=== PATIENT | female | born 1945 | race Caucasian/White ===

== ENCOUNTER → 2017-10-07 11:35 | Oncology outpatient (ONC) | payer MEDICARE, OTHER, SELFPAY ==
--- NOTE | 2017-10-07 12:32 | ONC.APRN.PN ---
Assessment and Plan (1) Polycythemia vera Current visit: No Status: Acute 10/07/17 12:37 Margo is a very pleasant 71-year-old female who we have been following for polycythemia vera. Reassuringly her blood counts remained stable on Hydrea 2000 mg each week. Specifically she takes 500 mg Tuesday. Platelets are 491. Hemoglobin 11.1 hematocrit 38.5 MCV 76. She is to continue Hydrea as per above. It is noted she is now being followed by Rheumatology for a diagnosis of fibromyalgia also osteoarthritis. Return to clinic in 4 months for provider visit CBC CMP iron profile. Continue every 2 month CBC. - Time Spent with Patient 35 minutes PN -Subjective Interval history: Margo is a very pleasant 71-year-old female who we follow in this clinic for polycythemia vera. She was previously thought to be KATHLEEN 2 positive however confirmatory testing was negative. She has been on Hydrea Tuesday 500 mg each day for total of 2000 mg each week for the last few years. Blood counts have been stable. No thrombotic events. She presents today for routine 4 month clinical evaluation. During the interval she was evaluated by Rheumatology she was diagnosed with osteoarthritis also fibromyalgia. No change in medications. Also, at 1 point time she was diagnosed with multiple sclerosis however she is now being told that was likely incorrect. She does still see Dr. sergio Holbrook, neurology. No new complaints on exam today. She does have multiple chronic complaints including joint pain, fatigue. No recent illnesses she did have a severe pneumonia 1 year ago. Otherwise stable. No change in weight, no change in appetite specifically no early satiety. No change in bladder or bowel habits. No change in activity tolerance she does continue with grade 1 fatigue. However she remains active she continues to work. She also baby-sits her grandchildren a few days every week. She is planning a trip to [facility] later this summer. No cough, fever, chills. No chest pain, shortness of breath. No headache. No new musculoskeletal pain. Past medical history: Polycythemia vera Chronic fatigue Followed by several neurologists including Alina wells Mildly elevated creatinine, chronic Chronic headaches Results - Imaging Additional studies: Procedures Esophagogastroduodenoscopy [EGD] with closed biopsy (11/15/14) Exploration of tendon sheath of hand (05/04/12) Injection of anticoagulant (07/30/11) Injection or infusion of other therapeutic or prophylactic substance (01/16/13) Other endoscopy of small intestine (12/22/11) Other nonoperative respiratory measurements (07/30/11) Home Medications and Allergies Home Medications Medication Instructions Recorded Confirmed Type ASPIRIN (#ASPIR 81) 81 mg PO Q DAY #0 11/13/12 History CRANBERRY EXTRACT (Cranberry) 300 mg PO Q DAY #0 11/13/12 History Vitamin E Succinate (#VITAMIN E) 200 iu PO Q DAY #0 11/13/12 History cholecalciferol (vitamin D3) 2,000 iu PO QDAY #0 11/13/12 History [Vitamin D3] escitalopram oxalate [Lexapro] 20 mg PO Q DAY #0 11/13/12 History fexofenadine 180 mg PO Q DAY #0 11/13/12 History fluticasone-salmeterol [Advair 1 puff INH BID #0 11/13/12 History Diskus] montelukast [Singulair] 10 mg PO QDAY #0 11/13/12 History naratriptan [Amerge] 2.5 mg PO #0 11/13/12 History tolterodine [Detrol LA] 4 mg PO QDAY #0 11/13/12 History multivitamin [Multiple Vitamins] 1 tab PO #0 12/12/15 History allopurinol 300 mg PO QDAY #90 tab 01/28/16 Rx nystatin-triamcinolone 1 rakesh TOPICAL PRN PRN #0 02/19/16 History linaclotide [Linzess] #0 09/17/16 History hydroxyurea [Hydrea] 500 mg PO 3 TIMES WEEKLY #36 cap 11/26/16 Rx acetaminophen 325 mg PO PRN #0 01/21/17 History Allergies Allergy/AdvReac Type Severity Reaction Status Date / Time indomethacin [INDOMETHACIN] Allergy Severe DIFFICULTY Unverified 08/17/17 12:58 BREATHING orphenadrine [ORPHENADRINE] Allergy Severe DIFFICULTY Unverified 08/17/17 12:58 BREATHING brompheniramine Allergy Unknown Unverified 08/17/17 12:58 [BROMPHENIRAMINE] chlorpheniramine Allergy Unknown Unverified 08/17/17 12:58 [CHLORPHENIRAMINE] dextromethorphan Allergy Unknown TIGHT CHEST Unverified 08/17/17 12:58 [DEXTROMETHORPHAN] lidocaine [LIDOCAINE] Allergy Unknown W/EPI-SHAKE Unverified 08/17/17 12:58 S Penicillins [PENICILLINS] Allergy Unknown Unverified 08/17/17 12:58 phenylephrine [PHENYLEPHRINE] Allergy Unknown Unverified 08/17/17 12:58 phenylpropanolamine Allergy Unknown Unverified 08/17/17 12:58 [PHENYLPROPANOLAMINE] pseudoephedrine Allergy Unknown TIGHT CHEST Unverified 08/17/17 12:58 [PSEUDOEPHEDRINE] Sulfa (Sulfonamide Allergy Unknown Unverified 08/17/17 12:58 Antibiotics) [SULFA (SULFONAMIDE ANTIBIOTICS)] erythromycin base AdvReac Unknown UPSET Unverified 08/17/17 12:58 [From ERYTHROCIN] STOMACH SEPTRA DS Allergy Unknown Uncoded 08/17/17 12:58 Exam Narrative: non toxic appearing - Constitutional positive no acute distress, positive average body habitus - Routine HEENT Exam Head: Present: normocephalic Eye: Present: EOMI, PERRL, normal accommodation, conjunctivae pink. Absent: conjunctival icterus ENT: Present: mucous membranes moist - Routine Neck Exam Present: supple. Absent: lymphadenopathy - Routine Chest/Breast/Axilla Exam Axillae: Absent: lymphadenopathy, mass, tenderness - Routine Respiratory Exam Present: Clear to auscultation bilaterally - Routine Cardiovascular Exam Present: RRR - Routine Abdominal Exam Present: soft, normoactive bowel sounds. Absent: tenderness, distended, rebound, guarding, organomegaly, mass - Routine Extremities Exam Absent: clubbing, edema, calf tenderness - Routine Skin Exam Present: intact, normal turgor. Absent: cyanosis, petechiae - Routine Neurological Exam Present: alert, oriented X3 - Routine Psychiatric Exam Present: normal affect
[2017-10-07 13:29] VITALS: BP 124/64; PULSE 77; RESP 16; TEMP 37; O2SAT 100
--- NOTE | 2021-04-13 11:28 | ONC.MSW ---
Bety Co-Pay Assistance/Delivery T/C Activity: Pt called to share that [facility] pharmacy told her that her medication is ready to deliver, but that there is no funding left in the Se, which is incorrect. EMERGENCY DEPARTMENT MANAGER called [employer], they said that [facility] needs to call them and give them the processing information, that this se goes month to month (MAR and APR), and that once [facility] calls, they will move the money into the account for this month. Called [facility] back, explained all of the above. EMERGENCY DEPARTMENT MANAGER stayed on hold until this was completed by [facility]. Called pt to confirm that the funds are available, and that her order is now being processed.
== END ==
PROVIDERS: Family Provider Family Medicine; PCP Family Medicine; Visit Provider Nurse Practitioner Gerontology
DX: D45 Polycythemia vera (principal)
CPT/HCPCS: 99214

== ENCOUNTER → 2017-12-06 10:00 | Outpatient (CLI) | payer MEDICARE, OTHER, SELFPAY ==
[2017-12-06 10:37] LABS: Hematocrit 37.5 % (36-46); Hemoglobin 11.2 g/dL (12.0-16.0); Mean Corpuscular HGB Conc 29.9 % (30-36); Mean Corpuscular Volume 73.6 fL (80-100); Platelet Count 496 X10^3/uL (150-400); Red Cell Distribution Width 22.6 % (11.6-14.8); White Blood Cell Count 12.1 X10^3/uL (4.5-11.0)
[2017-12-06 10:42] LABS: Add Manual Diff / Slide Review YES
[2017-12-06 11:23] LABS: Neutrophils Absolute Manual 10043 /uL (3000-5900); Total Cells Counted 100
[2017-12-06 11:24] LABS: Anisocytosis 2+
[2017-12-06 11:26] LABS: Ovalocytes 2+; Tear Drop Cells 1+
== END ==
PROVIDERS: Family Provider Family Medicine; PCP Family Medicine; Visit Provider Nurse Practitioner Gerontology
DX: D45 Polycythemia vera (principal)
CPT/HCPCS: 36415; 85025

== ENCOUNTER → 2017-12-14 15:03 | Outpatient (CLI) | payer MEDICARE, OTHER, SELFPAY ==
--- NOTE | 2017-12-14 | DI.MRI.S_ITS ---
PROCEDURE: MR KNEE LT WO CON INDICATIONS: CHRONIC PAIN OF LEFT KNEE TECHNIQUE: Noncontrast sagittal PD fast spin echo and T2 fast spin echo with fat saturation, sagittal 3-D FLASH with fat saturation; coronal T1 spin echo and PD fast spin echo with fat saturation, and axial PD fast spin echo with fat saturation through the knee. COMPARISON: None. FINDINGS: Image quality: Excellent. Menisci: There is complex tear involving body and posterior horn of medial meniscus extending to both superior and inferior articulating surfaces. No evidence of focal lateral meniscal tear. The meniscal root ligaments appear intact. Cruciate ligaments: The anterior and posterior cruciate ligaments appear intact. Medial structures: There is low grade proximal MCL sprain. No evidence of MCL rupture. The posterior oblique ligament, semimembranosus tendon insertions, oblique popliteal ligament, and meniscocapsular junction appear intact. Visualized portions of the pes anserinus tendons appear normal. No abnormal bursal fluid. Lateral structures: The lateral collateral ligament, long and short heads of the biceps femoris tendon appear intact. The popliteus tendon appears normal; the popliteofibular ligament appears intact. The posterosuperior and anteroinferior popliteomeniscal fascicles appear intact. The arcuate and fabellofibular ligaments appear intact, on either side of the lateral inferior geniculate artery. Iliotibial band appears normal. Anterior structures: The quadriceps and patellar tendons appear intact. Patellar alignment is normal. No femoral trochlear dysplasia or ventral trochlear prominence. No edema in the infrapatellar fat pad. Bones and cartilage: No bone marrow contusions or fractures. Low-grade chondromalacia involving medial facet of patella cartilage is seen. Joint space: There is moderate amount of knee joint fluid. No Hutchinson's cyst. Normal appearing synovial plicae are incidentally noted. IMPRESSION: 1. Complex tear involving body and posterior horn of medial meniscus extending to superior and inferior articulating surfaces. No focal lateral meniscal tear. 2. Cruciate ligaments are intact. 3. No fracture or dislocation. Moderate amount of joint effusion. No gross loose body. 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 Dictated by: Mendoza Olivier M.D. on 12/14/2017 at 16:27 Approved by: Mendoza Olivier M.D. on 12/14/2017 at 16:30
== END ==
PROVIDERS: Family Provider Family Medicine; PCP Family Medicine; Visit Provider Orthopaedic Surgery
DX: S83.232A Complex tear of medial meniscus, current injury, left knee, initial encounter (principal); M25.462 Effusion, left knee; M22.42 Chondromalacia patellae, left knee; M25.562 Pain in left knee
CPT/HCPCS: 73721

== ENCOUNTER 2018-01-31 13:26 | Oncology outpatient (ONC) | payer MEDICARE, OTHER, SELFPAY ==
--- NOTE | 2018-01-31 14:08 | P.PNONC_ITS ---
PN -Subjective Interval history: Diagnosis, polycythemia vera. Previous treatment: Hydrea. She is currently on 2000 mg weekly. She also takes low-dose aspirin. She did have some phlebotomy at the time of her diagnosis but has not needed it in many years. Interval history: Patient is a 72-year-old woman who returns today for follow- up of polycythemia vera. She is taking 500 mg a day of Hydrea on 4 days a week. She is tolerating it quite well. She denies any nausea or vomiting. She has not noted any skin rash or ulcers. She denies any fevers chills or sweats. Her appetite and energy level have been stable. She has not had any change in her weight. She denies any unusual bleeding or bruising. She has not had any thrombotic complications. No GI complaints. Overall she feels well. Her past medical history is notable for an episode of pneumonia for which he was hospitalized in 2017. She has a history of questionable multiple sclerosis. She has had a history of asthma. Her family history is notable for mother and sister with breast cancer. Home Medications and Allergies Home Medications Medication Instructions Recorded Confirmed Type ASPIRIN (#ASPIR 81) 81 mg PO Q DAY #0 11/13/12 10/07/17 History CRANBERRY EXTRACT (Cranberry) 300 mg PO Q DAY #0 11/13/12 10/07/17 History Vitamin E Succinate (#VITAMIN E) 200 iu PO Q DAY #0 11/13/12 10/07/17 History cholecalciferol (vitamin D3) 2,000 iu PO QDAY #0 11/13/12 10/07/17 History [Vitamin D3] escitalopram oxalate [Lexapro] 30 mg PO DAILY #0 11/13/12 10/07/17 History fexofenadine 180 mg PO Q DAY #0 11/13/12 10/07/17 History fluticasone-salmeterol [Advair 1 puff INH BID #0 11/13/12 10/07/17 History Diskus] montelukast [Singulair] 10 mg PO QDAY #0 11/13/12 10/07/17 History naratriptan [Amerge] 2.5 mg PO #0 11/13/12 History tolterodine [Detrol LA] 4 mg PO QDAY #0 11/13/12 10/07/17 History multivitamin [Multiple Vitamins] 1 tab PO QAM #0 12/12/15 History allopurinol 300 mg PO QDAY #90 tab 01/28/16 10/07/17 Rx nystatin-triamcinolone 1 rakesh TOPICAL PRN #0 02/19/16 History linaclotide [Linzess] 145 mcg PO BEDTIME #0 09/17/16 10/07/17 History acetaminophen 325 mg PO PRN #0 01/21/17 History alprazolam [Xanax] 0.25 mg PO TID PRN 10/07/17 10/07/17 History ascorbic acid (vitamin C) [Vitamin 500 mg PO DAILY 10/07/17 10/07/17 History C] dexlansoprazole [Dexilant] 60 mg PO DAILY 10/07/17 10/07/17 History lactobacillus combination no.4 3,000 mmu cells PO DAILY 10/07/17 10/07/17 History [Probiotic] omega-3 fatty acids-fish oil [Fish 1 cap PO DAILY 10/07/17 10/07/17 History Oil] hydroxyurea See Label Instructions .ROUTE 10/10/17 Rx .COMPLEX #60 cap Allergies Allergy/AdvReac Type Severity Reaction Status Date / Time indomethacin [INDOMETHACIN] Allergy Severe DIFFICULTY Unverified 08/17/17 12:58 BREATHING orphenadrine [ORPHENADRINE] Allergy Severe DIFFICULTY Unverified 08/17/17 12:58 BREATHING brompheniramine Allergy Unknown Unverified 08/17/17 12:58 [BROMPHENIRAMINE] chlorpheniramine Allergy Unknown Unverified 08/17/17 12:58 [CHLORPHENIRAMINE] dextromethorphan Allergy Unknown TIGHT CHEST Unverified 08/17/17 12:58 [DEXTROMETHORPHAN] lidocaine [LIDOCAINE] Allergy Unknown W/EPI-SHAKE Unverified 08/17/17 12:58 S Penicillins [PENICILLINS] Allergy Unknown Unverified 08/17/17 12:58 phenylephrine [PHENYLEPHRINE] Allergy Unknown Unverified 08/17/17 12:58 phenylpropanolamine Allergy Unknown Unverified 08/17/17 12:58 [PHENYLPROPANOLAMINE] pseudoephedrine Allergy Unknown TIGHT CHEST Unverified 08/17/17 12:58 [PSEUDOEPHEDRINE] Sulfa (Sulfonamide Allergy Unknown Unverified 08/17/17 12:58 Antibiotics) [SULFA (SULFONAMIDE ANTIBIOTICS)] erythromycin base AdvReac Unknown UPSET Unverified 08/17/17 12:58 [From ERYTHROCIN] STOMACH SEPTRA DS Allergy Unknown Uncoded 08/17/17 12:58 Exam - Constitutional positive no acute distress, positive average body habitus - Routine HEENT Exam Head: Present: normocephalic, atraumatic Eye: Present: EOMI, PERRL. Absent: conjunctival icterus, scleral injection ENT: Present: mucous membranes moist, oropharynx clear - Routine Neck Exam Present: supple. Absent: lymphadenopathy, thyromegaly - Routine Respiratory Exam Present: Clear to auscultation bilaterally. Absent: rales, wheezes - Routine Cardiovascular Exam Present: RRR, S1, S2. Absent: murmur - Routine Abdominal Exam Present: soft, normoactive bowel sounds, organomegaly (As spleen tip is just palpable on deep inspiration.). Absent: tenderness - Routine Extremities Exam Absent: cyanosis, clubbing, edema - Routine Back/Spine Exam Back/Spine: Absent: paraspinal tenderness, vertebral tenderness - Routine Skin Exam Present: intact. Absent: petechiae, rash - Routine Neurological Exam Present: alert, oriented X3 - Routine Psychiatric Exam Present: normal affect, normal thought process Results - Imaging Additional studies: Procedures Esophagogastroduodenoscopy [EGD] with closed biopsy (11/15/14) Exploration of tendon sheath of hand (05/04/12) Injection of anticoagulant (07/30/11) Injection or infusion of other therapeutic or prophylactic substance (01/16/13) Other nonoperative respiratory measurements (07/30/11) Assessment and Plan (1) Polycythemia vera Problem details: 72-year-old woman with a history of polycythemia vera for at least 10 years. She has been stable on Hydrea and has not required any phlebotomy. She has not had any constitutional symptoms or thrombotic complications. She will continue with her current regimen. She will return to clinic in about 6 months for follow-up. She will continue with every other month CBCs. Current visit: No Status: Acute
[2018-01-31 14:43] VITALS: BP 122/65; PULSE 82; RESP 18; TEMP 37.2; O2SAT 100
== END 2018-02-01 12:00 ==
LOC: ONC 13:27
PROVIDERS: Family Provider Family Medicine; PCP Family Medicine
DX: D45 Polycythemia vera (principal); Z79.82 Long term (current) use of aspirin; Z80.3 Family history of malignant neoplasm of breast
CPT/HCPCS: 99214

== ENCOUNTER 2018-05-25 11:24 | Emergency (ER) | payer MEDICARE, OTHER, SELFPAY ==
[2018-05-25 12:18] VITALS: BP 120/51; PULSE 78; RESP 17; TEMP 37; O2SAT 96
--- NOTE | 2018-05-25 13:18 | PC.NURSE ---
right lower leg with redness, suture intact, swelling, right knee with abrasion yellow drainage, with surrounding redness. provider at bs.
[2018-05-25 13:19] VITALS: BP 108/49; PULSE 78; RESP 16; O2SAT 98
--- NOTE | 2018-05-25 13:31 | ED_ITS ---
HPI - Extremity Injury (Lower) General Chief Complaint: Extremity Injury, Lower Stated Complaint: FELL, HURT RT LEG Time Seen by Provider: 05/25/18 12:52 Source: patient Mode of arrival: ambulatory Limitations: no limitations History of Present Illness HPI Narrative: This 72-year-old female tripped and fell last Tuesday, cutting her right pierre on the sheet metal fabricator of a dog gate. She also hit her knee and face. She was seen at [facility] twice over the weekend. States that head CT was done, sutures were placed, given tetanus vaccine. She return there on Tuesday as she was having significant pain and swelling, and states that the dressing was too tight. This was changed, and there was also concern for infection, so she was started on oral clindamycin. She states that she saw her PCP for follow-up on Tuesday and mupirocin ointment was prescribed. This was put on that day, but she just picked up the prescription today. She was not able to follow up with PCP today and came here just due to concern about whether drainage is abnormal or this could be worse. She is not sure whether the markings on her leg were over the painful area or where it was initially red. She has not had any new fever. She has had a little bit of drainage on her dressing. Her pierre is sore and states that initially it hurts to stand on it but then able to walk. No other new concerns today. Related Data Home Medications Medication Instructions Recorded Confirmed ASPIRIN (#ASPIR 81) 81 mg PO Q DAY #0 11/13/12 01/31/18 CRANBERRY EXTRACT (Cranberry) 300 mg PO Q DAY #0 11/13/12 01/31/18 Vitamin E Succinate (#VITAMIN E) 200 iu PO Q DAY #0 11/13/12 01/31/18 cholecalciferol (vitamin D3) 2,000 iu PO QDAY #0 11/13/12 01/31/18 [Vitamin D3] escitalopram oxalate [Lexapro] 30 mg PO DAILY #0 11/13/12 01/31/18 fexofenadine 180 mg PO Q DAY #0 11/13/12 01/31/18 fluticasone-salmeterol [Advair 1 puff INH BID #0 11/13/12 01/31/18 Diskus] montelukast [Singulair] 10 mg PO QDAY #0 11/13/12 01/31/18 naratriptan [Amerge] 2.5 mg PO DAILY #0 11/13/12 01/31/18 tolterodine [Detrol LA] 4 mg PO QDAY #0 11/13/12 01/31/18 multivitamin [Multiple Vitamins] 1 tab PO QAM #0 12/12/15 01/31/18 nystatin-triamcinolone 1 rakesh TOPICAL PRN PRN #0 02/19/16 01/31/18 linaclotide [Linzess] 145 mcg PO BEDTIME #0 09/17/16 01/31/18 acetaminophen 325 mg PO PRN PRN #0 01/21/17 01/31/18 alprazolam [Xanax] 0.25 mg PO TID PRN 10/07/17 01/31/18 ascorbic acid (vitamin C) [Vitamin 500 mg PO DAILY 10/07/17 01/31/18 C] dexlansoprazole [Dexilant] 60 mg PO DAILY 10/07/17 01/31/18 lactobacillus combination no.4 3,000 mmu cells PO DAILY 10/07/17 01/31/18 [Probiotic] omega-3 fatty acids-fish oil [Fish 1 cap PO DAILY 10/07/17 01/31/18 Oil] clindamycin HCl 300 mg PO QID 05/25/18 05/25/18 mupirocin 1 applic TOPICAL DIRECTED 05/25/18 05/25/18 oxycodone-acetaminophen 1 - 2 tab PO Q4-6H PRN 05/25/18 05/25/18 Previous Rx's Medication Instructions Recorded allopurinol 300 mg PO QDAY #90 tab 01/28/16 hydroxyurea See Label Instructions .ROUTE 10/10/17 .COMPLEX #60 cap Allergies Allergy/AdvReac Type Severity Reaction Status Date / Time indomethacin [INDOMETHACIN] Allergy Severe DIFFICULTY Verified 05/25/18 11:29 BREATHING orphenadrine [ORPHENADRINE] Allergy Severe DIFFICULTY Verified 05/25/18 11:29 BREATHING brompheniramine Allergy Unknown Verified 05/25/18 11:29 [BROMPHENIRAMINE] chlorpheniramine Allergy Unknown Verified 05/25/18 11:29 [CHLORPHENIRAMINE] dextromethorphan Allergy Unknown TIGHT CHEST Verified 05/25/18 11:29 [DEXTROMETHORPHAN] lidocaine [LIDOCAINE] Allergy Unknown W/EPI-SHAKE Verified 05/25/18 11:29 S Penicillins [PENICILLINS] Allergy Unknown Verified 05/25/18 11:29 phenylephrine [PHENYLEPHRINE] Allergy Unknown Verified 05/25/18 11:29 phenylpropanolamine Allergy Unknown Verified 05/25/18 11:29 [PHENYLPROPANOLAMINE] pseudoephedrine Allergy Unknown TIGHT CHEST Verified 05/25/18 11:29 [PSEUDOEPHEDRINE] Sulfa (Sulfonamide Allergy Unknown Verified 05/25/18 11:29 Antibiotics) [SULFA (SULFONAMIDE ANTIBIOTICS)] erythromycin base AdvReac Unknown UPSET Verified 05/25/18 11:29 [From ERYTHROCIN] STOMACH Review of Systems Review of Systems ROS Unobtainable: All systems reviewed & are unremarkable except as noted in HPI and below PFSH Medical History Polycythemia vera (Chronic) Hyperuricemia (Chronic) Chronic fatigue (Chronic) Chronic headaches (Chronic) Renal insufficiency (Chronic) Surgical History History of hand surgery (Resolved) Family History Father Diabetes mellitus Heart disease Sister Age: 75 Cancer Comment: Nonsmoker Exam Narrative Exam Narrative: GENERAL APPEARANCE: Patient sitting comfortably, in no distress. LUNGS: Clear to auscultation bilaterally. HEART: Rate and rhythm regular without murmur, normal S1 and S2, no S3 or S4. DERMATOLOGIC: Right knee there is a 2 cm nummular wound with some faint erythema at the proximal border, cool to touch. There is some pink granulation tissue centrally. On the right pierre there is an inverted V-shaped laceration, with ecchymoses centrally. There is minimal erythema at the wound borders and some pink discoloration proximally to about 10 cm and a few cm distally, non circumferential. Cool to touch. Erythema is well within the previously marked borders. There is a little bit of serosanguineous dry drainage on the dressing , no active drainage. EXTREMITIES: No cyanosis or edema on the right, no calf tenderness, pedal pulses intact Initial Vital Signs Initial Vital Signs: Vital Signs Temperature 98.6 F 05/25/18 12:18 Pulse Rate 78 05/25/18 12:18 Respiratory Rate 17 05/25/18 12:18 Blood Pressure 120/51 L 05/25/18 12:18 Pulse Oximetry 96 05/25/18 12:18 Course Additional Information: Patient has some inflammation around the wound but no evidence of worsening cellulitis. She is on appropriate antibiotic therapy. Discussed leaving the wound open to air when possible as this has been tightly wrapped, and precautions to monitor for. She will return over the weekend if any acutely worsening symptoms, and otherwise will follow up with her PCP as planned in a few days Vital Signs - 8 hr 05/25/18 12:18 05/25/18 13:19 Temperature 98.6 F Pulse Rate 78 78 Respiratory Rate 17 16 Blood Pressure [Left Arm] 120/51 L 108/49 L Pulse Oximetry 96 98 Discharge Plan Departure Patient Disposition: Home Clinical Impression: Wound of lower extremity, Cellulitis Discharge Date/Time: 05/25/18 13:50 Interventions: ED Discharge Assessment Last Done: 05/25/18 13:49 Instructions: DI for Cellulitis -- Adult Activity Restrictions/Additional Instructions: Please return as we talked about if you have acutely worsening symptoms such as rapidly increasing redness, warmth, streaking, or new symptoms such as fever, increased pain or swelling or draining thick pus. Otherwise, please bandage the leg to protect it when you will be up and about, but if you are sitting and resting, please leave the wound open to air as this may help it feel more quickly. Your on a very appropriate antibiotic regimen and since you just got the mupirocin topical medicine, it is reasonable to continue with these for a few days to assess your response. I have marked the current borders of redness on your leg to make it easier for you to watch. Please follow up with your PCP first of next week as you have planned. Please use only nonstick dressings directly on the wound. Prescriptions: No Action ASPIRIN (#ASPIR 81) 81 mg PO Q DAY Qty: 0 RF: 0 fluticasone-salmeterol [Advair Diskus] 250 MCG/50 MCG blister with device 1 puff INH BID Qty: 0 RF: 0 tolterodine [Detrol LA] 4 MG capsule,extended release 24hr 4 mg PO QDAY Qty: 0 RF: 0 fexofenadine 180 MG tablet 180 mg PO Q DAY Qty: 0 RF: 0 montelukast [Singulair] 10 MG tablet 10 mg PO QDAY Qty: 0 RF: 0 naratriptan [Amerge] 2.5 MG tablet 2.5 mg PO DAILY Qty: 0 RF: 0 escitalopram oxalate [Lexapro] 20 MG tablet 30 mg PO DAILY Qty: 0 RF: 0 cholecalciferol (vitamin D3) [Vitamin D3] 2,000 UNIT capsule 2,000 iu PO QDAY Qty: 0 RF: 0 CRANBERRY EXTRACT (Cranberry) 300 mg PO Q DAY Qty: 0 RF: 0 Vitamin E Succinate (#VITAMIN E) 200 iu PO Q DAY Qty: 0 RF: 0 multivitamin [Multiple Vitamins] 1 EACH tablet 1 tab PO QAM Qty: 0 RF: 0 allopurinol 300 MG tablet 300 mg PO QDAY Qty: 90 RF: 1 nystatin-triamcinolone 15 GM cream 1 rakesh Topical PRN PRN (Reason: Cold Sores) Qty: 0 RF: 0 linaclotide [Linzess] 72 mcg Capsule 145 mcg PO BEDTIME Qty: 0 RF: 0 acetaminophen 325 MG tablet 325 mg PO PRN PRN (Reason: Pain (Scale Score 4-6)) Qty: 0 RF: 0 hydroxyurea 500 mg Capsule See Label Instructions .ROUTE .COMPLEX Qty: 60 RF: 0 alprazolam [Xanax] 0.25 mg Tablet 0.25 mg PO TID PRN (Reason: Anxiety) RF: 0 ascorbic acid (vitamin C) [Vitamin C] 500 mg Tablet 500 mg PO DAILY RF: 0 omega-3 fatty acids-fish oil [Fish Oil] 360-1,200 mg Capsule 1 cap PO DAILY RF: 0 dexlansoprazole [Dexilant] 60 mg Capsule,Biphase Delayed Releas 60 mg PO DAILY RF: 0 lactobacillus combination no.4 [Probiotic] 3 billion cell Capsule 3,000 mmu cells PO DAILY RF: 0 clindamycin HCl 300 mg capsule 300 mg PO QID RF: 0 oxycodone-acetaminophen 5-325 mg tablet 1 - 2 tab PO Q4-6H PRN (Reason: pain) RF: 0 mupirocin 2 % ointment 1 applic Topical DIRECTED RF: 0 Referrals: Franklyn Mendoza MD [Primary Care Provider] -
--- NOTE | 2018-05-25 13:34 | PC.NURSE ---
non adherent bandage placed on right knee and right pierre. covered with bulkey gauze, and tube netting. applied pt's home antibiotic cream.
== END 2018-05-25 13:50 | disposition home or self-care (01) ==
PROVIDERS: Emergency Provider Internal Medicine; PCP Family Medicine
DX: S81.801D Unspecified open wound, right lower leg, subsequent encounter (principal); L03.115 Cellulitis of right lower limb
CPT/HCPCS: 99282; 99283

== ENCOUNTER → 2018-06-27 12:22 | Outpatient (CLI) | payer MEDICARE, OTHER, SELFPAY ==
--- NOTE | 2018-06-27 | DI.MG.S_ITS ---
BILATERAL DIGITAL SCREENING MAMMOGRAM 3D/2D WITH CAD: 06/27/2018 CLINICAL: Routine screening. Family history of breast cancer. Comparison is made to exams dated: 04/22/2017 mammogram, 03/29/2016 mammogram, and 03/28/2015 mammogram - [facility]. There are scattered fibroglandular elements in both breasts. Current study was also evaluated with a Computer Aided Detection (CAD) system. There are benign post operative findings in the right breast. There also are benign calcifications in the left breast. No significant masses, calcifications, or other findings are seen in either breast. There has been no significant interval change. IMPRESSION: There is no mammographic evidence of malignancy. A 1 year screening mammogram is recommended. This exam was interpreted at Station ID: [id number]. NOTE: For mammograms, a report in lay terms will be sent to the patient. Approximately 15% of breast malignancies will not be visualized mammographically. In the management of a palpable breast mass, a negative mammogram must not discourage biopsy of a clinically suspicious lesion. Electronically Signed By: Torsten hester/jany:06/29/2018 07:40:48 copy to: SELENA CHRISTOPHER letter sent: Normal Exam ACR BI-RADS Category 2: Benign Finding(s) 3342F
== END ==
PROVIDERS: PCP Family Medicine; Visit Provider Family Medicine
DX: Z12.31 Encounter for screening mammogram for malignant neoplasm of breast (principal); Z80.3 Family history of malignant neoplasm of breast
CPT/HCPCS: 77063; 77067

== ENCOUNTER → 2018-08-07 10:45 | Outpatient (CLI) | payer MEDICARE, OTHER, SELFPAY ==
--- NOTE | 2018-08-07 | DI.US.S_ITS ---
PROCEDURE: US THYROID INDICATIONS: THYROID NODULE TECHNIQUE: Real-time scanning was performed of the thyroid gland, with image documentation. COMPARISON: None. FINDINGS: Right: Thyroid lobe measures 4.7 x 2.1 x 1 point cm, and is homogeneous in echotexture. Left: Thyroid lobe measures 3.5 x 1.4 x 1.5 cm, and is homogenous in echotexture. Isthmus: 1.7 mm thick. Nodule number: 1 Location: Inferior left lobe Size: 0.7 x 0.5 x 0.6 cm. Composition: Solid Echogenicity: Hypoechoic Shape: Wider than tall Margins: Smooth Echogenic foci: None Total points: 2 ACR TI-RADS category: Not suspicious Nodule number: 2 Location: Left mid anterior Size: 0.5 x 0.3-0.3 cm. Composition: Predominantly solid Echogenicity: Hypoechoic Shape: Wider than tall Margins: Smooth Echogenic foci: None Total points: 4 ACR TI-RADS category: Moderately suspicious Nodule number: 3 Location: Right inferior posterior Size: 1.2 x 1.1 x 1.0 cm. Composition: Solid Echogenicity: Isoechoic Shape: Wider than tall Margins: Smooth Echogenic foci: None Total points: 3 ACR TI-RADS category: Mildly suspicious Nodule number: 4 Location: Right inferior anterior Size: 0.7 x 0.5 x 0.7 cm. Composition: Solid Echogenicity: Hypoechoic Shape: Wider than tall Margins: Smooth Echogenic foci: None Total points: 4 ACR TI-RADS category: Moderately suspicious IMPRESSION: Nodules #2 and #4 are moderately suspicious. Based on size of the nodules and ACR criteria outlined below, followup ultrasound in one year is recommended. ACR TI-RADS definitions and recommendations: TI-RADS 1 (benign): 0 points. FNA not needed. TI-RADS 2 (not suspicious): 2 points. FNA not needed. TI-RADS 3 (mildly suspicious): 3 points. * FNA if 2.5 cm or larger, follow up if 1.5 cm or larger (at 1, 3, and 5 years). TI-RADS 4 (moderately suspicious): 4-6 points. * FNA if 1.5 cm or larger, follow up if 1 cm or larger (at 1, 2, 3, and 5 years). TI-RADS 5 (highly suspicious): 7 points or more. * FNA if 1 cm or larger, follow up if 0.5 cm or larger (every year for 5 years). Dictated by: Nuzhat Brasher MD, PhD on 08/07/2018 at 14:49 Approved by: Nuzhat Brasher MD, PhD on 08/07/2018 at 14:56
== END ==
PROVIDERS: PCP Family Medicine; Visit Provider Family Medicine
DX: E04.2 Nontoxic multinodular goiter (principal)
CPT/HCPCS: 76536

== ENCOUNTER → 2018-08-14 11:18 | Outpatient (CLI) | payer MEDICARE, OTHER, SELFPAY ==
--- NOTE | 2018-08-14 | DI.RAD.S_ITS ---
PROCEDURE: XR HIP W PEL IF DONE RT 2V INDICATIONS: right hip pain TECHNIQUE: AP pelvis with lateral view(s) of the right hip(s). COMPARISON: [facility], CR, XR HIP 2 VIEWS BILATERAL, 08/29/2017, 15:13. FINDINGS: Bones: No fractures or dislocations. Pelvic ring appears intact. No suspicious bony lesions. Soft tissues: The visualized bowel gas pattern is normal. No suspicious soft tissue calcifications. 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 No interval trauma seen. Dictated by: Sohan Hussein M.D. on 08/14/2018 at 16:11 Approved by: Sohan uHssein M.D. on 08/14/2018 at 16:12
== END ==
PROVIDERS: PCP Family Medicine; Visit Provider Family Medicine
DX: M25.551 Pain in right hip (principal); M16.0 Bilateral primary osteoarthritis of hip
CPT/HCPCS: 73502

== ENCOUNTER → 2018-10-20 16:10 | Outpatient (CLI) | payer MEDICARE, OTHER, SELFPAY ==
[2018-10-20 16:56] LABS: Add Manual Diff / Slide Review NO; Basophils Absolute Auto 400 /uL (0-100); Basophils Percent Auto 3.1 % (0-2); Eosinophils Absolute Auto 400 /uL (0-450); Eosinophils Percent Auto 3.3 % (2-4); Hematocrit 35.7 % (36-46); Hemoglobin 10.3 g/dL (12.0-16.0); Lymphocytes Absolute Auto 1500 /uL (1100-4500); Lymphocytes Percent Auto 13.5 % (25-40); Mean Corpuscular HGB Conc 28.9 % (30-36); Mean Corpuscular Hemoglobin 20.9 PG (26-34); Mean Corpuscular Volume 72.4 fL (80-100); Monocytes Absolute Auto 500 /uL (0-900); Neutrophils Absolute Auto 8600 /uL (1500-7000); Neutrophils Percent Auto 76.1 % (50-75); Platelet Count 343 X10^3/uL (150-400); Red Blood Cell Count 4.93 X10^6/uL (4.0-5.2); Red Cell Distribution Width 22.1 % (11.6-14.8); White Blood Cell Count 11.3 X10^3/uL (4.5-11.0)
[2018-10-20 17:03] LABS: Hemoglobin A1C% w Est Avg Glu 4.9 % (4.0-6.0)
[2018-10-20 17:25] LABS: Free T4, Direct Thyroxine 0.91 ng/dL (0.78-2.19)
[2018-10-20 17:45] LABS: Anisocytosis 2+; Microcytosis 1+; Poikilocytosis 2+
[2018-10-20 17:46] LABS: Ovalocytes 2+; Tear Drop Cells 1+
== END ==
PROVIDERS: PCP Family Medicine; Visit Provider Internal Medicine Endocrinology, Diabetes & Metabolism
DX: E04.2 Nontoxic multinodular goiter (principal); R73.9 Hyperglycemia, unspecified; D45 Polycythemia vera
CPT/HCPCS: 36415; 83036; 84439; 84443; 85025

== ENCOUNTER 2018-10-26 13:16 | Emergency (ER) | payer MEDICARE, OTHER, SELFPAY ==
[2018-10-26 13:32] VITALS: BP 104/62; PULSE 82; RESP 18; TEMP 36.7; O2SAT 99
--- NOTE | 2018-10-26 14:47 | DI.RAD.S_ITS ---
PROCEDURE: XR HIP W PEL IF DONE LT MIN 4V INDICATIONS: PAIN TECHNIQUE: AP pelvis with lateral view(s) of the bilateral hip(s). COMPARISON: [facility], , XR HIP W PEL IF DONE RT 2V, 08/14/2018, 11:25. FINDINGS: Bones: No fractures or dislocations. Pelvic ring appears intact. No suspicious bony lesions. Mild degenerative changes of the pelvic joints are evident. Soft tissues: The visualized bowel gas pattern is normal. No suspicious soft tissue calcifications. IMPRESSION: No displaced pelvic fractures. Dictated by: Teddy Grimaldo M.D. on 10/26/2018 at 15:40 Approved by: Teddy Grimaldo M.D. on 10/26/2018 at 15:41
--- NOTE | 2018-10-26 14:47 | DI.RAD.S_ITS ---
PROCEDURE: XR LUMBAR SPINE 2-3V INDICATIONS: PAIN TECHNIQUE: 3 views of the lumbar spine were acquired. COMPARISON: [facility], , L-SPINE 2-3 VIEWS, 04/21/2017, 14:39. FINDINGS: Bones: There are 5 lumbar-type vertebral bodies. The lowest intervertebral disk space is designated as L5-S1. The vertebral body heights are well-maintained without evidence to suggest an acute compression fracture. The bone mineralization is within normal limits. Moderate multilevel degenerative changes of the lumbar spine are identified. The degree of degenerative changes have not significantly progressed. There continues to be dextroscoliosis of the lumbar spine, which is unchanged. Degenerative changes of the sacroiliac joints are present. Soft tissues: Moderate amount of stool seen within the colon. soft tissues of the imaged abdomen and pelvis are within normal limits. IMPRESSION: Moderate degenerative changes of the lumbar spine have not significantly progressed. No acute fractures. Dictated by: Teddy Grimaldo M.D. on 10/26/2018 at 15:41 Approved by: Teddy Grimaldo M.D. on 10/26/2018 at 15:43
[2018-10-26] MEDS: METHOCARBAMOL 500 MG TABLET PO (15:27)
[2018-10-26 15:42] LABS: Add Manual Diff / Slide Review NO; Basophils Absolute Auto 100 /uL (0-100); Basophils Percent Auto 1.4 % (0-2); Eosinophils Absolute Auto 400 /uL (0-450); Eosinophils Percent Auto 4.1 % (2-4); Hematocrit 36.1 % (36-46); Hemoglobin 10.5 g/dL (12.0-16.0); Lymphocytes Absolute Auto 1500 /uL (1100-4500); Lymphocytes Percent Auto 17.3 % (25-40); Mean Corpuscular HGB Conc 29.3 % (30-36); Mean Corpuscular Volume 71.7 fL (80-100); Monocytes Absolute Auto 400 /uL (0-900); Monocytes Percent Auto 4.6 % (3-14); Neutrophils Absolute Auto 6400 /uL (1500-7000); Neutrophils Percent Auto 72.6 % (50-75); Platelet Count 441 X10^3/uL (150-400); Red Blood Cell Count 5.03 X10^6/uL (4.0-5.2); Red Cell Distribution Width 21.9 % (11.6-14.8); White Blood Cell Count 8.8 X10^3/uL (4.5-11.0)
[2018-10-26 15:54] LABS: Alanine Aminotransferase 16 IU/L (9-52); Albumin 4.2 g/dL (3.5-5.0); Albumin Globulin Ratio 1.4 (1.0-2.8); Alkaline Phosphatase 60 U/L (38-126); Aspartate Aminotransferase 26 IU/L (14-36); BUN Creatinine Ratio 14.4 (6-22); Bilirubin Total 0.5 mg/dL (0.2-1.3); Blood Urea Nitrogen 13 mg/dL (7-17); Calcium 9.1 mg/dL (8.4-10.2); Carbon Dioxide 29 mmol/L (22-32); Chloride 99 mmol/L (98-107); Estimated Glomerular Filt Rate > 60.0 mL/min (>60); Globulin 2.9 g/dL (1.7-4.1); Glucose 91 mg/dL (80-110); HEMOLYSIS < 15 (0-50); Potassium 4.2 mmol/L (3.4-5.1); Sodium 136 mmol/L (137-145); Total Protein 7.1 g/dL (6.3-8.2)
[2018-10-26 16:16] LABS: Polychromasia 1+
[2018-10-26 16:17] LABS: Hypochromasia 1+; Microcytosis 1+; Ovalocytes 1+; Poikilocytosis 2+; Tear Drop Cells 1+
[2018-10-26 16:56] VITALS: BP 117/62; PULSE 76; RESP 15; O2SAT 100
--- NOTE | 2018-10-26 20:36 | ED.BACK ---
HPI - Back Pain/Injury <Trini Love, MARKETING CONSULTANT-BC - Last Filed: 10/26/18 20:55> General Chief Complaint: Back Pain/Injury Stated Complaint: mid back pain, trouble moving Time Seen by Provider: 10/26/18 15:05 Source: patient and family Mode of arrival: ambulatory Limitations: no limitations History of Present Illness HPI Narrative: The patient is a 72-year-old female former smoker with history of gout who presents with a chief complaint of mid back pain. She states that she has had several falls over the past few years. She most recently fell early last week. However that is not when her pain started. She states her back pain started last Tuesday, when she was bending over repeatedly to help move belongings. She denies any numbness or tingling. She denies any incontinence of bowel, incontinence of bladder or saddle anesthesia. She is taking Cipro right now for a urinary tract infection. This was started on Tuesday of this week. Her friend is concerned she might have a kidney infection in, causing her pain in her back. The patient does complain of muscle pain on all sides of her back. She said she has not improved as she would like to. She has not taken anything for the pain. Related Data Home Medications Medication Instructions Recorded Confirmed aspirin 81 mg PO DAILY #0 11/13/12 10/26/18 cholecalciferol (vitamin D3) 2,000 iu PO DAILY #0 11/13/12 10/26/18 [Vitamin D3] cranberry extract 300 mg PO DAILY #0 11/13/12 10/26/18 escitalopram oxalate [Lexapro] 30 mg PO DAILY #0 11/13/12 10/26/18 fexofenadine 180 mg PO DAILY #0 11/13/12 10/26/18 fluticasone propion-salmeterol 1 puff INH BID #0 11/13/12 10/26/18 [Advair Diskus] montelukast [Singulair] 10 mg PO DAILY #0 11/13/12 10/26/18 tolterodine [Detrol LA] 4 mg PO DAILY #0 11/13/12 10/26/18 vitamin E succinate 200 unit PO DAILY #0 11/13/12 10/26/18 multivitamin [Multiple Vitamins] 1 tab PO DAILY #0 12/12/15 10/26/18 nystatin-triamcinolone 1 rakesh TOPICAL PRN PRN #0 02/19/16 10/26/18 acetaminophen 325 mg PO PRN PRN #0 01/21/17 10/26/18 alprazolam [Xanax] 0.25 mg PO TID PRN 10/07/17 10/26/18 ascorbic acid (vitamin C) [Vitamin 500 mg PO DAILY 10/07/17 10/26/18 C] dexlansoprazole [Dexilant] 60 mg PO DAILY 10/07/17 10/26/18 lactobacillus combination no.4 3,000 mmu cells PO DAILY 10/07/17 10/26/18 [Probiotic] omega-3 fatty acids-fish oil [Fish 1 cap PO DAILY 10/07/17 10/26/18 Oil] mupirocin 1 applic TOPICAL DIRECTED 05/25/18 10/26/18 oxycodone-acetaminophen 1 - 2 tab PO Q4-6H PRN 05/25/18 10/26/18 acetaminophen-codeine 1 tab PO PRN PRN 10/26/18 10/26/18 [Tylenol-Codeine #3] allopurinol 300 mg PO DAILY 10/26/18 10/26/18 ciprofloxacin HCl 250 mg PO [id number] 10/26/18 10/26/18 cyclobenzaprine 10 mg PO TID PRN 10/26/18 10/26/18 hydroxyurea 500 mg PO 4XW 10/26/18 10/26/18 linaclotide [Linzess] 145 mcg PO BEDTIME 10/26/18 10/26/18 metronidazole 1 applic TOPICAL DAILY 10/26/18 10/26/18 naratriptan 2.5 mg PO DAILY PRN MDD 5 mg 10/26/18 10/26/18 Previous Rx's Medication Instructions Recorded methocarbamol [Robaxin] 500 mg PO TID PRN #30 tab 10/26/18 prednisone 20 mg PO DAILY #5 tab 10/26/18 Allergies Allergy/AdvReac Type Severity Reaction Status Date / Time indomethacin [INDOMETHACIN] Allergy Severe DIFFICULTY Verified 05/25/18 11:29 BREATHING orphenadrine [ORPHENADRINE] Allergy Severe DIFFICULTY Verified 05/25/18 11:29 BREATHING brompheniramine Allergy Unknown Verified 05/25/18 11:29 [BROMPHENIRAMINE] chlorpheniramine Allergy Unknown Verified 05/25/18 11:29 [CHLORPHENIRAMINE] dextromethorphan Allergy Unknown TIGHT CHEST Verified 05/25/18 11:29 [DEXTROMETHORPHAN] lidocaine [LIDOCAINE] Allergy Unknown W/EPI-SHAKE Verified 05/25/18 11:29 S Penicillins [PENICILLINS] Allergy Unknown Verified 05/25/18 11:29 phenylephrine [PHENYLEPHRINE] Allergy Unknown Verified 05/25/18 11:29 phenylpropanolamine Allergy Unknown Verified 05/25/18 11:29 [PHENYLPROPANOLAMINE] pseudoephedrine Allergy Unknown TIGHT CHEST Verified 05/25/18 11:29 [PSEUDOEPHEDRINE] Sulfa (Sulfonamide Allergy Unknown Verified 05/25/18 11:29 Antibiotics) [SULFA (SULFONAMIDE ANTIBIOTICS)] erythromycin base AdvReac Unknown UPSET Verified 05/25/18 11:29 [From ERYTHROCIN] STOMACH Review of Systems <TIANA Andres - Last Filed: 10/26/18 20:55> Review of Systems GENERAL: Denies chills, fatigue, malaise, fever, sweats. HEENT: Denies sinus pain, ear pain, sore throat, difficulty swallowing, dizziness. RESPIRATORY: Denies dyspnea, cough, wheezing, hemoptysis, sputum. CARDIOVASCULAR: Denies chest pain, palpitations, orthopnea, edema, GASTROINTESTINAL: Denies nausea, vomiting, abdominal pain, diarrhea, constipation, melena. : Denies dysuria, frequency, incontinence, hematuria, urinary retention. MUSCULOSKELETAL: See HPI SKIN: Denies rash, skin lesions, or other NEUROLOGIC: Denies weakness, headache, numbness, change in speech, confusion, seizures, incoordination. PSYCHIATRIC: No concerning psychosocial issues. 12 point review of systems is negative except for those stated above PFSH <TIANA Andres - Last Filed: 10/26/18 20:55> Medical History (Updated 10/26/18 @ 16:52 by TIANA Andres) Polycythemia vera (Chronic) Hyperuricemia (Chronic) Chronic fatigue (Chronic) Chronic headaches (Chronic) Renal insufficiency (Chronic) Surgical History (Updated 10/24/18 @ 14:13 by Alexy Hoffman MD) History of hand surgery (Resolved) Family History Father Diabetes mellitus Heart disease Sister Age: 76 Cancer Social History Smoking Status: Former smoker Social History Smoking Status: Former smoker Exam <ALIA Andres- - Last Filed: 10/26/18 20:55> Narrative Exam Narrative: GENERAL: This is a well-nourished, well-developed patient, no acute distress with friends at bedside HEAD: Atraumatic. Normocephalic. No temporal or scalp tenderness. EYES: Pupils equal round and reactive. Extraocular motions intact. No scleral icterus. No injection or drainage. ENT: Nose without bleeding, purulent drainage or septal hematoma. Throat without erythema, tonsillar hypertrophy or exudate. Uvula midline. Airway patent. NECK: Trachea midline. No JVD or lymphadenopathy. Supple, nontender, no meningeal signs. CARDIOVASCULAR: Regular rate and rhythm without murmurs, gallops, or rubs. RESPIRATORY: Clear to auscultation. Breath sounds equal bilaterally. No wheezes, rales, or rhonchi. No cough. No increased respiratory effort. No accessory muscle use. GASTROINTESTINAL: Abdomen soft, non-tender, nondistended. No hepato-splenomegaly, or palpable masses. No guarding. EXTREMITIES: No clubbing, cyanosis, or edema. No joint tenderness, effusion, or edema noted. BACK: without deformity or crepitance. No flank tenderness. No pain to palpation of C-spine or T-spine. Patient has some pain to palpation of L-spine, and right-sided lumbar paraspinal muscles. NEURO: AOx3. Strength is equal upper and lower extremities bilaterally. No gross cranial nerve deficit. SKIN: No rash or erythema. No erythema ecchymosis rash laceration or abrasion noted lumbar spine Initial Vital Signs Initial Vital Signs: Vital Signs Temperature 98.1 F 10/26/18 13:32 Pulse Rate 82 10/26/18 13:32 Respiratory Rate 18 10/26/18 13:32 Blood Pressure 104/62 10/26/18 13:32 Pulse Oximetry 99 10/26/18 13:32 <DO Raf Combs Last Filed: 10/30/18 07:44> Initial Vital Signs Initial Vital Signs: Vital Signs Temperature 98.1 F 10/26/18 13:32 Pulse Rate 82 10/26/18 13:32 Respiratory Rate 18 10/26/18 13:32 Blood Pressure 104/62 10/26/18 13:32 Pulse Oximetry 99 10/26/18 13:32 Course <TIANA Andres - Last Filed: 10/26/18 20:55> Orders Ordered: Discontinued Medications Methocarbamol (Robaxin) 500 mg PO NOW ONE Stop: 10/26/18 15:18 Last Admin: 10/26/18 15:27 Dose: 500 mg Vital Signs - 8 hr 10/26/18 13:32 10/26/18 16:56 Temperature 98.1 F Pulse Rate 82 76 Respiratory Rate 18 15 Blood Pressure 104/62 Blood Pressure [Right Arm] 117/62 Pulse Oximetry 99 100 <DO Raf Combs Last Filed: 10/30/18 07:44> Orders Ordered: Discontinued Medications Methocarbamol (Robaxin) 500 mg PO NOW ONE Stop: 10/26/18 15:18 Last Admin: 10/26/18 15:27 Dose: 500 mg Vital Signs - 8 hr 10/26/18 13:32 10/26/18 16:56 Temperature 98.1 F Pulse Rate 82 76 Respiratory Rate 18 15 Blood Pressure 104/62 Blood Pressure [Right Arm] 117/62 Pulse Oximetry 99 100 MDM - Back Pain/Injury <TIANA Andres - Last Filed: 10/26/18 20:55> Lab Data Result diagrams: 10/26/18 15:35 10/26/18 15:35 Lab Results 10/26/18 10/26/18 Range/Units 15:35 15:35 WBC 8.8 (4.5-11.0) X10^3/uL RBC 5.03 (4.0-5.2) X10^6/uL Hgb 10.5 L (12.0-16.0) g/dL Hct 36.1 (36-46) % MCV 71.7 L (80-100) fL MCH 21.0 L (26-34) PG MCHC 29.3 L (30-36) % RDW 21.9 H (11.6-14.8) % Plt Count 441 H (150-400) X10^3/uL Neut % (Auto) 72.6 (50-75) % Lymph % (Auto) 17.3 L (25-40) % [place] % (Auto) 4.6 (3-14) % Eos % (Auto) 4.1 H (2-4) % Baso % (Auto) 1.4 (0-2) % Neut # (Auto) 6400 (7529-6065) /uL Lymph # (Auto) 1500 (7850-0589) /uL [place] # (Auto) 400 (0-900) /uL Eos # (Auto) 400 (0-450) /uL Baso # (Auto) 100 (0-100) /uL RBC Morphology See below Polychromasia 1+ H Hypochromasia 1+ H Poikilocytosis 2+ H Microcytosis 1+ H Tear Drop Cells 1+ H Ovalocytes 1+ H Sodium 136 L (137-145) mmol/L Potassium 4.2 (3.4-5.1) mmol/L Chloride 99 (98-107) mmol/L Carbon Dioxide 29 (22-32) mmol/L BUN 13 (7-17) mg/dL Creatinine 0.90 (0.52-1.04) mg/dL Estimated GFR > 60.0 (>60) mL/min BUN/Creatinine Ratio 14.4 (6-22) Glucose 91 (80-110) mg/dL Calcium 9.1 (8.4-10.2) mg/dL Total Bilirubin 0.5 (0.2-1.3) mg/dL AST 26 (14-36) IU/L ALT 16 (9-52) IU/L Alkaline Phosphatase 60 (38-126) U/L Total Protein 7.1 (6.3-8.2) g/dL Albumin 4.2 (3.5-5.0) g/dL Globulin 2.9 (1.7-4.1) g/dL Albumin/Globulin Ratio 1.4 (1.0-2.8) Urine Dip Bedside Urine Glucose Negative Bedside Urine Bilirubin - Negative Bedside Urine Ketone - Negative Urine Specific [place] 1.015 Bedside Urine Occult Blood - Negative Bedside Urine pH 6.5 Bedside Urine Protein - Negative Bedside Urine Urobilinogen - Negative Bedside Urine Nitrite - Negative Bedside Urine Leukocytes - Negative Esterase Imaging Data Pelvis x-ray: Radiologist's impression: [address] [address] XRay Report Signed Patient: Margo Conroy [facility]#: [id number] : 8Acct:[id number] Age/Sex: 72 / FDate of Service: 10/26/18 Loc: ED Accession Number: [id number] Procedure: XR hip w pel if done NIURKA 3to4V Ordering Provider: Trini Love MARKETING CONSULTANT-BC PROCEDURE: XR HIP W PEL IF DONE LT MIN 4V INDICATIONS: PAIN TECHNIQUE: AP pelvis with lateral view(s) of the bilateral hip(s). [facility] RT 2V, 08/14/2018, 11:25. FINDINGS: Bones: No fractures or dislocations. Pelvic ring appears intact. No suspicious bony lesions. Mild degenerative changes of the pelvic joints are evident. Soft tissues: The visualized bowel gas pattern is normal. No suspicious soft tissue calcifications. IMPRESSION: No displaced pelvic fractures. Dictated by: Teddy Grimaldo M.D. on 10/26/2018 at 15:40 Approved by: Teddy Grimaldo M.D. on 10/26/2018 at 15:41 Lumbar x-ray: Radiologist's impression: [address] [address] XRay Report Signed Patient: Margo Conroy [facility]#: [id number] : 8At:[id number] Age/Sex: 72 / FDate of Service: 10/26/18 Loc: ED Accession Number: [id number] Procedure: XR lumbar spine 2-3V Ordering Provider: Trini Love-BC PROCEDURE: XR LUMBAR SPINE 2-3V INDICATIONS: PAIN TECHNIQUE: 3 views of the lumbar spine were acquired. [facility]3 [facility], 04/21/2017, 14:39. FINDINGS: Bones: There are 5 lumbar-type vertebral bodies. The lowest intervertebral disk space is designated as L5-S1. The vertebral body heights are well-maintained without evidence to suggest an acute compression fracture. The bone mineralization is within normal limits. Moderate multilevel degenerative changes of the lumbar spine are identified. The degree of degenerative changes have not significantly progressed. There continues to be dextroscoliosis of the lumbar spine, which is unchanged. Degenerative changes of the sacroiliac joints are present. Soft tissues: Moderate amount of stool seen within the colon. soft tissues of the imaged abdomen and pelvis are within normal limits. IMPRESSION: Moderate degenerative changes of the lumbar spine have not significantly progressed. No acute fractures. Dictated by: Teddy Grimaldo M.D. on 10/26/2018 at 15:41 Approved by: Teddy Grimaldo M.D. on 10/26/2018 at 15:43 MDM Narrative Medical decision making narrative: The patient is a 9-year-old female who presents with chief complaint of low back pain. Given her recent diagnosis of urinary tract infection, I wanted to rule out pyelonephritis. She does not have an elevated white blood cell count, has normal kidney function and a clean urinalysis. Thus I believe the pain is musculoskeletal. She received her Robaxin in the emergency department, which she stated helped a bit. She declined any opiates. She did ask for a burst of steroids as this has helped her in the past, so I gave her 40 mg prednisone p.o. for 5 days. I also gave her prescription of Robaxin. We did discuss Voltaren, but she has an allergy to NSAIDs. I also suggested [id number] 4% lidocaine patches. I encouraged to follow up with primary care provider. Discussed coming back to the ER for any acute concerns such as incontinence of bowel, incontinence of bladder or numbness. Given her complaints of increased falls at home, she states that these are due to being ?clumsy to ambulate in the emergency department. She does have a recent multiple sclerosis diagnosis, so this may be related. I did encourage her to follow up with primary care provider as she may benefit from physical therapy or further evaluation. No questions or concerns upon discharge. <Trini Cabello, - Last Filed: 10/30/18 07:44> Lab Data Lab Results 10/26/18 10/26/18 Range/Units 15:35 15:35 WBC 8.8 (4.5-11.0) X10^3/uL RBC 5.03 (4.0-5.2) X10^6/uL Hgb 10.5 L (12.0-16.0) g/dL Hct 36.1 (36-46) % MCV 71.7 L (80-100) fL MCH 21.0 L (26-34) PG MCHC 29.3 L (30-36) % RDW 21.9 H (11.6-14.8) % Plt Count 441 H (150-400) X10^3/uL Neut % (Auto) 72.6 (50-75) % Lymph % (Auto) 17.3 L (25-40) % [place] % (Auto) 4.6 (3-14) % Eos % (Auto) 4.1 H (2-4) % Baso % (Auto) 1.4 (0-2) % Neut # (Auto) 6400 (3482-7404) /uL Lymph # (Auto) 1500 (2525-7026) /uL [place] # (Auto) 400 (0-900) /uL Eos # (Auto) 400 (0-450) /uL Baso # (Auto) 100 (0-100) /uL RBC Morphology See below Polychromasia 1+ H Hypochromasia 1+ H Poikilocytosis 2+ H Microcytosis 1+ H Tear Drop Cells 1+ H Ovalocytes 1+ H Sodium 136 L (137-145) mmol/L Potassium 4.2 (3.4-5.1) mmol/L Chloride 99 (98-107) mmol/L Carbon Dioxide 29 (22-32) mmol/L BUN 13 (7-17) mg/dL Creatinine 0.90 (0.52-1.04) mg/dL Estimated GFR > 60.0 (>60) mL/min BUN/Creatinine Ratio 14.4 (6-22) Glucose 91 (80-110) mg/dL Calcium 9.1 (8.4-10.2) mg/dL Total Bilirubin 0.5 (0.2-1.3) mg/dL AST 26 (14-36) IU/L ALT 16 (9-52) IU/L Alkaline Phosphatase 60 (38-126) U/L Total Protein 7.1 (6.3-8.2) g/dL Albumin 4.2 (3.5-5.0) g/dL Globulin 2.9 (1.7-4.1) g/dL Albumin/Globulin Ratio 1.4 (1.0-2.8) Urine Dip Bedside Urine Glucose Negative Bedside Urine Bilirubin - Negative Bedside Urine Ketone - Negative Urine Specific [place] 1.015 Bedside Urine Occult Blood - Negative Bedside Urine pH 6.5 Bedside Urine Protein - Negative Bedside Urine Urobilinogen - Negative Bedside Urine Nitrite - Negative Bedside Urine Leukocytes - Negative Esterase Discharge Plan Departure Patient Disposition: Home Clinical Impression: Back pain Qualifiers: Back pain location: low back pain Chronicity: acute Back pain laterality: bilateral Sciatica presence: without sciatica Qualified Code(s): M54.5 - Low back pain Discharge Date/Time: 10/26/18 17:00 Interventions: ED Discharge Assessment Last Done: 10/26/18 17:00 Instructions: DI for Back Spasm, DI for Back Strain or Sprain Activity Restrictions/Additional Instructions: I have sent 2 prescriptions to [facility] in [place]. I did not do the prescription of Voltaren given her allergy to NSAIDs previously. I suggest the 4% [id number] lidocaine patches Please follow up with primary care provider soon as possible. Please come back to the emergency department for any acute concerns such as incontinence as we discussed as well as numbness where he would sit on a horse Your white blood cell count is not elevated today and your kidney function is good. Come back to the ER if needed. Prescriptions: New methocarbamol [Robaxin] 500 mg tablet 500 mg PO TID PRN (Reason: muscle spasm) Qty: 30 RF: 0 prednisone 20 mg tablet 20 mg PO DAILY Qty: 5 RF: 0 No Action fluticasone propion-salmeterol [Advair Diskus] 250 MCG/50 MCG blister with device 1 puff INH BID Qty: 0 RF: 0 cranberry extract 300 mg Tablet 300 mg PO DAILY Qty: 0 RF: 0 tolterodine [Detrol LA] 4 MG capsule,extended release 24hr 4 mg PO DAILY Qty: 0 RF: 0 fexofenadine 180 MG tablet 180 mg PO DAILY Qty: 0 RF: 0 aspirin 81 mg Tablet,Delayed Release (Dr/Ec) 81 mg PO DAILY Qty: 0 RF: 0 montelukast [Singulair] 10 MG tablet 10 mg PO DAILY Qty: 0 RF: 0 escitalopram oxalate [Lexapro] 20 MG tablet 30 mg PO DAILY Qty: 0 RF: 0 cholecalciferol (vitamin D3) [Vitamin D3] 2,000 UNIT capsule 2,000 iu PO DAILY Qty: 0 RF: 0 vitamin E succinate 200 unit Tablet 200 unit PO DAILY Qty: 0 RF: 0 multivitamin [Multiple Vitamins] 1 EACH tablet 1 tab PO DAILY Qty: 0 RF: 0 nystatin-triamcinolone 15 GM cream 1 rakesh Topical PRN PRN (Reason: Cold Sores) Qty: 0 RF: 0 acetaminophen 325 MG tablet 325 mg PO PRN PRN (Reason: Pain (Scale Score 4-6)) Qty: 0 RF: 0 cyclobenzaprine 10 mg tablet 10 mg PO TID PRN (Reason: Spasms) RF: 0 hydroxyurea 500 mg capsule 500 mg PO 4XW RF: 0 ciprofloxacin HCl 250 mg tablet 250 mg PO [id number] RF: 0 metronidazole 0.75 % cream 1 applic topical DAILY RF: 0 naratriptan 2.5 mg tablet 2.5 mg PO DAILY MDD 5 mg PRN (Reason: Migraine Headache) RF: 0 Linzess 145 mcg capsule 145 mcg PO BEDTIME RF: 0 allopurinol 300 MG tablet 300 mg PO DAILY RF: 0 acetaminophen-codeine [Tylenol-Codeine #3] 300-30 mg Tablet 1 tab PO PRN PRN (Reason: PAIN) RF: 0 alprazolam [Xanax] 0.25 mg Tablet 0.25 mg PO TID PRN (Reason: Anxiety) RF: 0 ascorbic acid (vitamin C) [Vitamin C] 500 mg Tablet 500 mg PO DAILY RF: 0 omega-3 fatty acids-fish oil [Fish Oil] 360-1,200 mg Capsule 1 cap PO DAILY RF: 0 Dexilant 60 mg Capsule,Biphase Delayed Releas 60 mg PO DAILY RF: 0 Probiotic 3 billion cell Capsule 3,000 mmu cells PO DAILY RF: 0 oxycodone-acetaminophen 5-325 mg tablet 1 - 2 tab PO Q4-6H PRN (Reason: pain) RF: 0 mupirocin 2 % ointment 1 applic Topical DIRECTED RF: 0 Referrals: Franklyn Mendoza MD [Primary Care Provider] - <Trini Cabello DO - Last Filed: 10/30/18 07:44> Cosign ED Attending Cosignature Attestation: I was immediately available in the department for consultation. This documentation has been reviewed and I agree with assessment and plan. Supervised by Trini Cabello, DO
--- NOTE | 2018-10-26 20:55 | ED_ITS ---
HPI - Back Pain/Injury <Trini Love, PHYSICAL THERAPY ATTENDANT-BC - Last Filed: 10/26/18 20:55> General Chief Complaint: Back Pain/Injury Stated Complaint: mid back pain, trouble moving Time Seen by Provider: 10/26/18 15:05 Source: patient and family Mode of arrival: ambulatory Limitations: no limitations History of Present Illness HPI Narrative: The patient is a 72-year-old female former smoker with history of gout who presents with a chief complaint of mid back pain. She states that she has had several falls over the past few years. She most recently fell early last week. However that is not when her pain started. She states her back pain started last Tuesday, when she was bending over repeatedly to help move belongings. She denies any numbness or tingling. She denies any incontinence of bowel, incontinence of bladder or saddle anesthesia. She is taking Cipro right now for a urinary tract infection. This was started on Tuesday of this week. Her friend is concerned she might have a kidney infection in, causing her pain in her back. The patient does complain of muscle pain on all sides of her back. She said she has not improved as she would like to. She has not taken anything for the pain. Related Data Home Medications Medication Instructions Recorded Confirmed aspirin 81 mg PO DAILY #0 11/13/12 10/26/18 cholecalciferol (vitamin D3) 2,000 iu PO DAILY #0 11/13/12 10/26/18 [Vitamin D3] cranberry extract 300 mg PO DAILY #0 11/13/12 10/26/18 escitalopram oxalate [Lexapro] 30 mg PO DAILY #0 11/13/12 10/26/18 fexofenadine 180 mg PO DAILY #0 11/13/12 10/26/18 fluticasone propion-salmeterol 1 puff INH BID #0 11/13/12 10/26/18 [Advair Diskus] montelukast [Singulair] 10 mg PO DAILY #0 11/13/12 10/26/18 tolterodine [Detrol LA] 4 mg PO DAILY #0 11/13/12 10/26/18 vitamin E succinate 200 unit PO DAILY #0 11/13/12 10/26/18 multivitamin [Multiple Vitamins] 1 tab PO DAILY #0 12/12/15 10/26/18 nystatin-triamcinolone 1 rakesh TOPICAL PRN PRN #0 02/19/16 10/26/18 acetaminophen 325 mg PO PRN PRN #0 01/21/17 10/26/18 alprazolam [Xanax] 0.25 mg PO TID PRN 10/07/17 10/26/18 ascorbic acid (vitamin C) [Vitamin 500 mg PO DAILY 10/07/17 10/26/18 C] dexlansoprazole [Dexilant] 60 mg PO DAILY 10/07/17 10/26/18 lactobacillus combination no.4 3,000 mmu cells PO DAILY 10/07/17 10/26/18 [Probiotic] omega-3 fatty acids-fish oil [Fish 1 cap PO DAILY 10/07/17 10/26/18 Oil] mupirocin 1 applic TOPICAL DIRECTED 05/25/18 10/26/18 oxycodone-acetaminophen 1 - 2 tab PO Q4-6H PRN 05/25/18 10/26/18 acetaminophen-codeine 1 tab PO PRN PRN 10/26/18 10/26/18 [Tylenol-Codeine #3] allopurinol 300 mg PO DAILY 10/26/18 10/26/18 ciprofloxacin HCl 250 mg PO [id number] 10/26/18 10/26/18 cyclobenzaprine 10 mg PO TID PRN 10/26/18 10/26/18 hydroxyurea 500 mg PO 4XW 10/26/18 10/26/18 linaclotide [Linzess] 145 mcg PO BEDTIME 10/26/18 10/26/18 metronidazole 1 applic TOPICAL DAILY 10/26/18 10/26/18 naratriptan 2.5 mg PO DAILY PRN MDD 5 mg 10/26/18 10/26/18 Previous Rx's Medication Instructions Recorded methocarbamol [Robaxin] 500 mg PO TID PRN #30 tab 10/26/18 prednisone 20 mg PO DAILY #5 tab 10/26/18 Allergies Allergy/AdvReac Type Severity Reaction Status Date / Time indomethacin [INDOMETHACIN] Allergy Severe DIFFICULTY Verified 05/25/18 11:29 BREATHING orphenadrine [ORPHENADRINE] Allergy Severe DIFFICULTY Verified 05/25/18 11:29 BREATHING brompheniramine Allergy Unknown Verified 05/25/18 11:29 [BROMPHENIRAMINE] chlorpheniramine Allergy Unknown Verified 05/25/18 11:29 [CHLORPHENIRAMINE] dextromethorphan Allergy Unknown TIGHT CHEST Verified 05/25/18 11:29 [DEXTROMETHORPHAN] lidocaine [LIDOCAINE] Allergy Unknown W/EPI-SHAKE Verified 05/25/18 11:29 S Penicillins [PENICILLINS] Allergy Unknown Verified 05/25/18 11:29 phenylephrine [PHENYLEPHRINE] Allergy Unknown Verified 05/25/18 11:29 phenylpropanolamine Allergy Unknown Verified 05/25/18 11:29 [PHENYLPROPANOLAMINE] pseudoephedrine Allergy Unknown TIGHT CHEST Verified 05/25/18 11:29 [PSEUDOEPHEDRINE] Sulfa (Sulfonamide Allergy Unknown Verified 05/25/18 11:29 Antibiotics) [SULFA (SULFONAMIDE ANTIBIOTICS)] erythromycin base AdvReac Unknown UPSET Verified 05/25/18 11:29 [From ERYTHROCIN] STOMACH Review of Systems <TIANA Andres - Last Filed: 10/26/18 20:55> Review of Systems GENERAL: Denies chills, fatigue, malaise, fever, sweats. HEENT: Denies sinus pain, ear pain, sore throat, difficulty swallowing, dizziness. RESPIRATORY: Denies dyspnea, cough, wheezing, hemoptysis, sputum. CARDIOVASCULAR: Denies chest pain, palpitations, orthopnea, edema, GASTROINTESTINAL: Denies nausea, vomiting, abdominal pain, diarrhea, constipatio n, melena. : Denies dysuria, frequency, incontinence, hematuria, urinary retention. MUSCULOSKELETAL: See HPI SKIN: Denies rash, skin lesions, or other NEUROLOGIC: Denies weakness, headache, numbness, change in speech, confusion, seizures, incoordination. PSYCHIATRIC: No concerning psychosocial issues. 12 point review of systems is negative except for those stated above PFSH <TIANA Andres - Last Filed: 10/26/18 20:55> Medical History (Updated 10/26/18 @ 16:52 by TIANA Andres) Polycythemia vera (Chronic) Hyperuricemia (Chronic) Chronic fatigue (Chronic) Chronic headaches (Chronic) Renal insufficiency (Chronic) Surgical History (Updated 10/24/18 @ 14:13 by Alexy Hoffman MD) History of hand surgery (Resolved) Family History Father Diabetes mellitus Heart disease Sister Age: 76 Cancer Social History Smoking Status: Former smoker Social History Smoking Status: Former smoker Exam <Trini Kate, PHYSICAL THERAPY ATTENDANT- - Last Filed: 10/26/18 20:55> Narrative Exam Narrative: GENERAL: This is a well-nourished, well-developed patient, no acute distress with friends at bedside HEAD: Atraumatic. Normocephalic. No temporal or scalp tenderness. EYES: Pupils equal round and reactive. Extraocular motions intact. No scleral icterus. No injection or drainage. ENT: Nose without bleeding, purulent drainage or septal hematoma. Throat without erythema, tonsillar hypertrophy or exudate. Uvula midline. Airway patent. NECK: Trachea midline. No JVD or lymphadenopathy. Supple, nontender, no meningeal signs. CARDIOVASCULAR: Regular rate and rhythm without murmurs, gallops, or rubs. RESPIRATORY: Clear to auscultation. Breath sounds equal bilaterally. No wheezes, rales, or rhonchi. No cough. No increased respiratory effort. No accessory muscle use. GASTROINTESTINAL: Abdomen soft, non-tender, nondistended. No hepato-splenome ale, or palpable masses. No guarding. EXTREMITIES: No clubbing, cyanosis, or edema. No joint tenderness, effusion, or edema noted. BACK: without deformity or crepitance. No flank tenderness. No pain to palpation of C-spine or T-spine. Patient has some pain to palpation of L-spine, and right-sided lumbar paraspinal muscles. NEURO: AOx3. Strength is equal upper and lower extremities bilaterally. No gross cranial nerve deficit. SKIN: No rash or erythema. No erythema ecchymosis rash laceration or abrasion noted lumbar spine Initial Vital Signs Initial Vital Signs: Vital Signs Temperature 98.1 F 10/26/18 13:32 Pulse Rate 82 10/26/18 13:32 Respiratory Rate 18 10/26/18 13:32 Blood Pressure 104/62 10/26/18 13:32 Pulse Oximetry 99 10/26/18 13:32 <DO Raf Combs Last Filed: 10/30/18 07:44> Initial Vital Signs Initial Vital Signs: Vital Signs Temperature 98.1 F 10/26/18 13:32 Pulse Rate 82 10/26/18 13:32 Respiratory Rate 18 10/26/18 13:32 Blood Pressure 104/62 10/26/18 13:32 Pulse Oximetry 99 10/26/18 13:32 Course <TIANA Andres - Last Filed: 10/26/18 20:55> Orders Ordered: Discontinued Medications Methocarbamol (Robaxin) 500 mg PO NOW ONE Stop: 10/26/18 15:18 Last Admin: 10/26/18 15:27 Dose: 500 mg Vital Signs - 8 hr 10/26/18 13:32 10/26/18 16:56 Temperature 98.1 F Pulse Rate 82 76 Respiratory Rate 18 15 Blood Pressure 104/62 Blood Pressure [Right Arm] 117/62 Pulse Oximetry 99 100 <DO Raf Combs Last Filed: 10/30/18 07:44> Orders Ordered: Discontinued Medications Methocarbamol (Robaxin) 500 mg PO NOW ONE Stop: 10/26/18 15:18 Last Admin: 10/26/18 15:27 Dose: 500 mg Vital Signs - 8 hr 10/26/18 13:32 10/26/18 16:56 Temperature 98.1 F Pulse Rate 82 76 Respiratory Rate 18 15 Blood Pressure 104/62 Blood Pressure [Right Arm] 117/62 Pulse Oximetry 99 100 MDM - Back Pain/Injury <TIANA Andres - Last Filed: 10/26/18 20:55> Lab Data Result diagrams: 10/26/18 15:35 10/26/18 15:35 Lab Results 10/26/18 10/26/18 Range/Units 15:35 15:35 WBC 8.8 (4.5-11.0) X10^3/uL RBC 5.03 (4.0-5.2) X10^6/uL Hgb 10.5 L (12.0-16.0) g/dL Hct 36.1 (36-46) % MCV 71.7 L (80-100) fL MCH 21.0 L (26-34) PG MCHC 29.3 L (30-36) % RDW 21.9 H (11.6-14.8) % Plt Count 441 H (150-400) X10^3/uL Neut % (Auto) 72.6 (50-75) % Lymph % (Auto) 17.3 L (25-40) % [place] % (Auto) 4.6 (3-14) % Eos % (Auto) 4.1 H (2-4) % Baso % (Auto) 1.4 (0-2) % Neut # (Auto) 6400 (7562-9405) /uL Lymph # (Auto) 1500 (4266-8388) /uL [place] # (Auto) 400 (0-900) /uL Eos # (Auto) 400 (0-450) /uL Baso # (Auto) 100 (0-100) /uL RBC Morphology See below Polychromasia 1+ H Hypochromasia 1+ H Poikilocytosis 2+ H Microcytosis 1+ H Tear Drop Cells 1+ H Ovalocytes 1+ H Sodium 136 L (137-145) mmol/L Potassium 4.2 (3.4-5.1) mmol/L Chloride 99 (98-107) mmol/L Carbon Dioxide 29 (22-32) mmol/L BUN 13 (7-17) mg/dL Creatinine 0.90 (0.52-1.04) mg/dL Estimated GFR > 60.0 (>60) mL/min BUN/Creatinine Ratio 14.4 (6-22) Glucose 91 (80-110) mg/dL Calcium 9.1 (8.4-10.2) mg/dL Total Bilirubin 0.5 (0.2-1.3) mg/dL AST 26 (14-36) IU/L ALT 16 (9-52) IU/L Alkaline Phosphatase 60 (38-126) U/L Total Protein 7.1 (6.3-8.2) g/dL Albumin 4.2 (3.5-5.0) g/dL Globulin 2.9 (1.7-4.1) g/dL Albumin/Globulin Ratio 1.4 (1.0-2.8) Urine Dip Bedside Urine Glucose Negative Bedside Urine Bilirubin - Negative Bedside Urine Ketone - Negative Urine Specific [place] 1.015 Bedside Urine Occult Blood - Negative Bedside Urine pH 6.5 Bedside Urine Protein - Negative Bedside Urine Urobilinogen - Negative Bedside Urine Nitrite - Negative Bedside Urine Leukocytes - Negative Esterase Imaging Data Pelvis x-ray: Radiologist's impression: [address] [id number] XRay Report Signed Patient: Margo Conroy [facility]#: [id number] : 8Acct:[id number] Age/Sex: 72 / FDate of Service: 10/26/18 Loc: ED Accession Number: [id number] Procedure: XR hip w pel if done NIURKA 3to4V Ordering Provider: Trini LoveP-BC PROCEDURE: XR HIP W PEL IF DONE LT MIN 4V INDICATIONS: PAIN TECHNIQUE: AP pelvis with lateral view(s) of the bilateral hip(s). [facility] DONE RT 2V, 08/14/2018, 11:25. FINDINGS: Bones: No fractures or dislocations. Pelvic ring appears intact. No suspicious bony lesions. Mild degenerative changes of the pelvic joints are evident. Soft tissues: The visualized bowel gas pattern is normal. No suspicious soft tissue calcifications. IMPRESSION: No displaced pelvic fractures. Dictated by: Teddy Grimaldo M.D. on 10/26/2018 at 15:40 Approved by: Teddy Grimaldo M.D. on 10/26/2018 at 15:41 Lumbar x-ray: Radiologist's impression: [address] [id number] XRay Report Signed Patient: Margo Conroy [facility]#: [id number] : 8At:[id number] Age/Sex: 72 / FDate of Service: 10/26/18 Loc: ED Accession Number: [id number] Procedure: XR lumbar spine 2-3V Ordering Provider: Trini Love-BC PROCEDURE: XR LUMBAR SPINE 2-3V INDICATIONS: PAIN TECHNIQUE: 3 views of the lumbar spine were acquired. [facility]-3 [facility], 04/21/2017, 14:39. FINDINGS: Bones: There are 5 lumbar-type vertebral bodies. The lowest intervertebral disk space is designated as L5-S1. The vertebral body heights are well-maintained without evidence to suggest an acute compression fracture. The bone mineralization is within normal limits. Moderate multilevel degenerative changes of the lumbar spine are identified. The degree of degenerative changes have not significantly progressed. There continues to be dextroscoliosis of the lumbar spine, which is unchanged. Degenerative changes of the sacroiliac joints are present. Soft tissues: Moderate amount of stool seen within the colon. soft tissues of the imaged abdomen and pelvis are within normal limits. IMPRESSION: Moderate degenerative changes of the lumbar spine have not significantly prog ressed. No acute fractures. Dictated by: Teddy Grimaldo M.D. on 10/26/2018 at 15:41 Approved by: Teddy Grimaldo M.D. on 10/26/2018 at 15:43 MDM Narrative Medical decision making narrative: The patient is a 9-year-old female who presents with chief complaint of low back pain. Given her recent diagnosis of urinary tract infection, I wanted to rule out pyelonephritis. She does not have an elevated white blood cell count, has normal kidney function and a clean urinalysis. Thus I believe the pain is musculoskeletal. She received her Robaxin in the emergency department, which she stated helped a bit. She declined any opiates. She did ask for a burst of steroids as this has helped her in the past, so I gave her 40 mg prednisone p.o. for 5 days. I also gave her prescription of Robaxin. We did discuss Voltaren, but she has an allergy to NSAIDs. I also suggested [id number] 4% lidocaine patches. I encouraged to follow up with primary care provider. Discussed coming back to the ER for any acute concerns such as incontinence of bowel, incontinence of bladder or numbness. Given her complaints of increased falls at home, she states that these are due to being ?clumsy to ambulate in the emergency department. She does have a recent multiple sclerosis diagnosis, so this may be related. I did encourage her to follow up with primary care provider as she may benefit from physical therapy or further evaluation. No questions or concerns upon discharge. <Trini Cabello, DO - Last Filed: 10/30/18 07:44> Lab Data Lab Results 10/26/18 10/26/18 Range/Units 15:35 15:35 WBC 8.8 (4.5-11.0) X10^3/uL RBC 5.03 (4.0-5.2) X10^6/uL Hgb 10.5 L (12.0-16.0) g/dL Hct 36.1 (36-46) % MCV 71.7 L (80-100) fL MCH 21.0 L (26-34) PG MCHC 29.3 L (30-36) % RDW 21.9 H (11.6-14.8) % Plt Count 441 H (150-400) X10^3/uL Neut % (Auto) 72.6 (50-75) % Lymph % (Auto) 17.3 L (25-40) % [place] % (Auto) 4.6 (3-14) % Eos % (Auto) 4.1 H (2-4) % Baso % (Auto) 1.4 (0-2) % Neut # (Auto) 6400 (1422-2133) /uL Lymph # (Auto) 1500 (2972-8791) /uL [place] # (Auto) 400 (0-900) /uL Eos # (Auto) 400 (0-450) /uL Baso # (Auto) 100 (0-100) /uL RBC Morphology See below Polychromasia 1+ H Hypochromasia 1+ H Poikilocytosis 2+ H Microcytosis 1+ H Tear Drop Cells 1+ H Ovalocytes 1+ H Sodium 136 L (137-145) mmol/L Potassium 4.2 (3.4-5.1) mmol/L Chloride 99 (98-107) mmol/L Carbon Dioxide 29 (22-32) mmol/L BUN 13 (7-17) mg/dL Creatinine 0.90 (0.52-1.04) mg/dL Estimated GFR > 60.0 (>60) mL/min BUN/Creatinine Ratio 14.4 (6-22) Glucose 91 (80-110) mg/dL Calcium 9.1 (8.4-10.2) mg/dL Total Bilirubin 0.5 (0.2-1.3) mg/dL AST 26 (14-36) IU/L ALT 16 (9-52) IU/L Alkaline Phosphatase 60 (38-126) U/L Total Protein 7.1 (6.3-8.2) g/dL Albumin 4.2 (3.5-5.0) g/dL Globulin 2.9 (1.7-4.1) g/dL Albumin/Globulin Ratio 1.4 (1.0-2.8) Urine Dip Bedside Urine Glucose Negative Bedside Urine Bilirubin - Negative Bedside Urine Ketone - Negative Urine Specific [place] 1.015 Bedside Urine Occult Blood - Negative Bedside Urine pH 6.5 Bedside Urine Protein - Negative Bedside Urine Urobilinogen - Negative Bedside Urine Nitrite - Negative Bedside Urine Leukocytes - Negative Esterase Discharge Plan Departure Patient Disposition: Home Clinical Impression: Back pain Qualifiers: Back pain location: low back pain Chronicity: acute Back pain laterality: bilateral Sciatica presence: without sciatica Qualified Code(s): M54.5 - Low back pain Discharge Date/Time: 10/26/18 17:00 Interventions: ED Discharge Assessment Last Done: 10/26/18 17:00 Instructions: DI for Back Spasm, DI for Back Strain or Sprain Activity Restrictions/Additional Instructions: I have sent 2 prescriptions to [facility] in [place]. I did not do the prescription of Voltaren given her allergy to NSAIDs previously. I suggest the 4% [id number] lidocaine patches Please follow up with primary care provider soon as possible. Please come back to the emergency department for any acute concerns such as incontinence as we discussed as well as numbness where he would sit on a horse Your white blood cell count is not elevated today and your kidney function is good. Come back to the ER if needed. Prescriptions: New methocarbamol [Robaxin] 500 mg tablet 500 mg PO TID PRN (Reason: muscle spasm) Qty: 30 RF: 0 prednisone 20 mg tablet 20 mg PO DAILY Qty: 5 RF: 0 No Action fluticasone propion-salmeterol [Advair Diskus] 250 MCG/50 MCG blister with device 1 puff INH BID Qty: 0 RF: 0 cranberry extract 300 mg Tablet 300 mg PO DAILY Qty: 0 RF: 0 tolterodine [Detrol LA] 4 MG capsule,extended release 24hr 4 mg PO DAILY Qty: 0 RF: 0 fexofenadine 180 MG tablet 180 mg PO DAILY Qty: 0 RF: 0 aspirin 81 mg Tablet,Delayed Release (Dr/Ec) 81 mg PO DAILY Qty: 0 RF: 0 montelukast [Singulair] 10 MG tablet 10 mg PO DAILY Qty: 0 RF: 0 escitalopram oxalate [Lexapro] 20 MG tablet 30 mg PO DAILY Qty: 0 RF: 0 cholecalciferol (vitamin D3) [Vitamin D3] 2,000 UNIT capsule 2,000 iu PO DAILY Qty: 0 RF: 0 vitamin E succinate 200 unit Tablet 200 unit PO DAILY Qty: 0 RF: 0 multivitamin [Multiple Vitamins] 1 EACH tablet 1 tab PO DAILY Qty: 0 RF: 0 nystatin-triamcinolone 15 GM cream 1 rakesh Topical PRN PRN (Reason: Cold Sores) Qty: 0 RF: 0 acetaminophen 325 MG tablet 325 mg PO PRN PRN (Reason: Pain (Scale Score 4-6)) Qty: 0 RF: 0 cyclobenzaprine 10 mg tablet 10 mg PO TID PRN (Reason: Spasms) RF: 0 hydroxyurea 500 mg capsule 500 mg PO 4XW RF: 0 ciprofloxacin HCl 250 mg tablet 250 mg PO [id number] RF: 0 metronidazole 0.75 % cream 1 applic topical DAILY RF: 0 naratriptan 2.5 mg tablet 2.5 mg PO DAILY MDD 5 mg PRN (Reason: Migraine Headache) RF: 0 Linzess 145 mcg capsule 145 mcg PO BEDTIME RF: 0 allopurinol 300 MG tablet 300 mg PO DAILY RF: 0 acetaminophen-codeine [Tylenol-Codeine #3] 300-30 mg Tablet 1 tab PO PRN PRN (Reason: PAIN) RF: 0 alprazolam [Xanax] 0.25 mg Tablet 0.25 mg PO TID PRN (Reason: Anxiety) RF: 0 ascorbic acid (vitamin C) [Vitamin C] 500 mg Tablet 500 mg PO DAILY RF: 0 omega-3 fatty acids-fish oil [Fish Oil] 360-1,200 mg Capsule 1 cap PO DAILY RF: 0 Dexilant 60 mg Capsule,Biphase Delayed Releas 60 mg PO DAILY RF: 0 Probiotic 3 billion cell Capsule 3,000 mmu cells PO DAILY RF: 0 oxycodone-acetaminophen 5-325 mg tablet 1 - 2 tab PO Q4-6H PRN (Reason: pain) RF: 0 mupirocin 2 % ointment 1 applic Topical DIRECTED RF: 0 Referrals: Franklyn Mendoza MD [Primary Care Provider] - <Trini Cabello DO - Last Filed: 10/30/18 07:44> Cosign ED Attending Cosignature Attestation: I was immediately available in the department for consultation. This documentation has been reviewed and I agree with assessment and plan. Supervised by Trini Cabello, DO
== END 2018-10-26 17:00 | disposition home or self-care (01) ==
PROVIDERS: Emergency Provider Nurse Practitioner Family; PCP Family Medicine
DX: M54.5 Low back pain (principal)
CPT/HCPCS: 36415; 72100; 73522; 80053; 81003; 85025; 99282; 99284

== ENCOUNTER 2018-11-03 12:19 | Emergency (ER) | payer MEDICARE, OTHER, SELFPAY ==
[2018-11-03] VITALS (9 sets, daily range): BP systolic 106–117; BP diastolic 44–59; PULSE 75–86; RESP 16–22; TEMP 36.7; O2SAT 97–100; BMI 23.4
--- NOTE | 2018-11-03 12:41 | ED.NEUROSD ---
HPI - Neuro Symptoms/Deficit General Chief Complaint: Neuro Symptoms/Deficit Stated Complaint: states saw an aura, confusion Time Seen by Provider: 11/03/18 12:26 Source: patient Mode of arrival: ambulatory Limitations: no limitations History of Present Illness HPI Narrative: Patient is a 72-year-old female presenting with a variety of complaints. He has actually seen evaluated here on 10/30/2018 her some back pain. She was given prescription for Robaxin and prednisone. She then followed up with her PCP which took her off Robaxin and started her on Flexeril. She says her back is still in pain and she is uncomfortable. She has no numbness or tingling in her legs no changes in bowel or bladder habits. However today she describes ?zigzag in her left eye which is something she typically gets she is going to have a migraine headache. However she did not get a headache she says sometimes that happen she has a visual changes in the or a in a but does not get headache that day sometimes headache comes later. She overall is difficult to get information out and seems to have a new symptom with every question asked. She initially denied any chest pain shortness of breath or palpitations. Related Data Home Medications Medication Instructions Recorded Confirmed aspirin 81 mg PO DAILY #0 11/13/12 11/03/18 cholecalciferol (vitamin D3) 2,000 iu PO DAILY #0 11/13/12 11/03/18 [Vitamin D3] cranberry extract 300 mg PO DAILY #0 11/13/12 11/03/18 escitalopram oxalate [Lexapro] 30 mg PO DAILY #0 11/13/12 11/03/18 fexofenadine 180 mg PO DAILY #0 11/13/12 11/03/18 fluticasone propion-salmeterol 1 puff INH BID #0 11/13/12 11/03/18 [Advair Diskus] montelukast [Singulair] 10 mg PO DAILY #0 11/13/12 11/03/18 tolterodine [Detrol LA] 4 mg PO DAILY #0 11/13/12 11/03/18 vitamin E succinate 200 unit PO DAILY #0 11/13/12 11/03/18 multivitamin [Multiple Vitamins] 1 tab PO DAILY #0 12/12/15 11/03/18 nystatin-triamcinolone 1 rakesh TOPICAL PRN PRN #0 02/19/16 11/03/18 acetaminophen 325 mg PO PRN PRN #0 01/21/17 11/03/18 alprazolam [Xanax] 0.25 mg PO TID PRN 10/07/17 11/03/18 ascorbic acid (vitamin C) [Vitamin 500 mg PO DAILY 10/07/17 11/03/18 C] dexlansoprazole [Dexilant] 60 mg PO DAILY 10/07/17 11/03/18 lactobacillus combination no.4 3,000 mmu cells PO DAILY 10/07/17 11/03/18 [Probiotic] omega-3 fatty acids-fish oil [Fish 1 cap PO DAILY 10/07/17 11/03/18 Oil] mupirocin 1 applic TOPICAL DIRECTED 05/25/18 11/03/18 oxycodone-acetaminophen 1 - 2 tab PO Q4-6H PRN 05/25/18 11/03/18 acetaminophen-codeine 1 tab PO PRN PRN 10/26/18 11/03/18 [Tylenol-Codeine #3] allopurinol 300 mg PO DAILY 10/26/18 11/03/18 ciprofloxacin HCl 250 mg PO [id number] 10/26/18 11/03/18 cyclobenzaprine 10 mg PO TID PRN 10/26/18 11/03/18 hydroxyurea 500 mg PO 4XW 10/26/18 11/03/18 linaclotide [Linzess] 145 mcg PO BEDTIME 10/26/18 11/03/18 metronidazole 1 applic TOPICAL DAILY 10/26/18 11/03/18 naratriptan 2.5 mg PO DAILY PRN MDD 5 mg 10/26/18 11/03/18 Previous Rx's Medication Instructions Recorded methocarbamol [Robaxin] 500 mg PO TID PRN #30 tab 10/26/18 prednisone 20 mg PO DAILY #5 tab 10/26/18 ketorolac 10 mg PO TID PRN #10 tab 11/03/18 Allergies Allergy/AdvReac Type Severity Reaction Status Date / Time indomethacin [INDOMETHACIN] Allergy Severe DIFFICULTY Verified 11/03/18 12:47 BREATHING orphenadrine [ORPHENADRINE] Allergy Severe DIFFICULTY Verified 11/03/18 12:47 BREATHING brompheniramine Allergy Unknown Verified 11/03/18 12:47 [BROMPHENIRAMINE] chlorpheniramine Allergy Unknown Verified 11/03/18 12:47 [CHLORPHENIRAMINE] dextromethorphan Allergy Unknown TIGHT CHEST Verified 11/03/18 12:47 [DEXTROMETHORPHAN] lidocaine [LIDOCAINE] Allergy Unknown W/EPI-SHAKE Verified 11/03/18 12:47 S Penicillins [PENICILLINS] Allergy Unknown Verified 11/03/18 12:47 phenylephrine [PHENYLEPHRINE] Allergy Unknown Verified 11/03/18 12:47 phenylpropanolamine Allergy Unknown Verified 11/03/18 12:47 [PHENYLPROPANOLAMINE] pseudoephedrine Allergy Unknown TIGHT CHEST Verified 11/03/18 12:47 [PSEUDOEPHEDRINE] Sulfa (Sulfonamide Allergy Unknown Verified 11/03/18 12:47 Antibiotics) [SULFA (SULFONAMIDE ANTIBIOTICS)] erythromycin base AdvReac Unknown UPSET Verified 11/03/18 12:47 [From ERYTHROCIN] STOMACH Review of Systems Review of Systems ROS Unobtainable: All systems reviewed & are unremarkable except as noted in HPI and below Constitutional Denies chills, Denies fever(s), Denies headache(s), Denies lethargy and Denies weakness Eyes Reports as per HPI ENT Ears, Nose, Mouth, and Throat: Denies change in voice, Denies dizziness, Denies headache(s), Denies neck pain and Denies sore throat Cardiovascular Denies chest pain, Denies syncope, Denies irregular heart rhythm, Denies lightheadedness, Denies palpitations, Denies dyspnea, Denies dyspnea on exertion and Denies orthopnea Respiratory Denies cough, Denies dyspnea, Denies dyspnea on exertion and Denies wheezing Gastrointestinal Gastrointestinal: Denies abdominal pain, Denies change in bowel habits, Denies diarrhea, Denies nausea and Denies vomiting Genitourinary Denies hematuria, Denies flank pain, Denies urinary incontinence and Denies urinary urgency Musculoskeletal Reports back pain and Denies neck pain Integumentary/Breasts Denies pruritus, Denies erythema, Denies rash and Denies wounds Neurologic Denies dizziness, Denies syncope, Denies headache(s) and Denies weakness Endocrine Denies palpitations Allergic/Immunologic Denies wheezing [facility] Medical History Polycythemia vera (Chronic) Hyperuricemia (Chronic) Chronic fatigue (Chronic) Chronic headaches (Chronic) Renal insufficiency (Chronic) Surgical History History of hand surgery (Resolved) Family History Father Diabetes mellitus Heart disease Sister Age: 76 Cancer Social History Smoking Status: Former smoker Family History Father Diabetes mellitus Heart disease Sister Age: 76 Cancer Social History Smoking Status: Former smoker Exam Initial Vital Signs Initial Vital Signs: Vital Signs Temperature 98.1 F 11/03/18 12:20 Pulse Rate 86 11/03/18 12:20 Respiratory Rate 18 11/03/18 12:20 Blood Pressure 106/59 L 11/03/18 12:20 Pulse Oximetry 98 11/03/18 12:20 GENERAL: Week female, but no acute distress A&Ox3 HEENT: Head atraumatic,EOMI, pupils reactive, CARDIOVASCULAR: Regular rate and rhythm without murmurs, rubs or gallops. RESPIRATORY: Breath sounds equal bilaterally, no wheezes rales or rhonchi. ABDOMEN: Soft, nontender. Normoactive bowel sounds all 4 quadrants. No guarding or rebound. EXTREMITIES: Normal range of motion, no clubbing or edema. Neurovascularly intact NEUROLOGICAL: Alert and oriented x4.Normal gait and speech. Cranial nerves II through XII grossly intact. Good [id number], good [id number], strength equal bilaterally, no dysarthria or aphasia, sensation in tact to soft touch bilaterally, no visual changes, no facial droop SKIN: Warm, dry, no laceration, no petechiae, no rashes or lesions. Scores HEART Score Heart Score history: Slightly Suspicious Heart Score EKG: Normal Heart Score Age: > or = 65 years old Heart Score risk factors: No known risk factors Heart Score troponin: < or = to normal limit Heart Score Total: 2 NIH Stroke Scale Level of Conciousness: Alert, keenly responsive Ask month/age: Answers both questions correctly. Open/close eyes, close hand: Performs both tasks correctly Best gaze horizontal: Normal Visual park: No visual loss Facial palsy: Normal symetrical movement Left arm drift: No drift for full 10 sec Right arm drift: No drift for full 10 sec Left leg drift: No drift for full 10 sec Right leg drift: No drift for full 10 sec Limb ataxia: Absent Sensory on face/arms/legs: Normal, no sensory loss Best language: No aphasia, normal Dysarthria: Normal Extinction or inattention: No abnormality Total NIH Stroke scale score: 0 Course Orders Ordered: ED Orders 11/03/18 12:37 Urine Drug Screen, Rapid Stat 11/03/18 12:40 Complete Blood Count AUTO DIFF Stat Comprehensive Metabolic Panel Stat Partial Thromboplastin Time Stat Prothrombin Time INR Stat Troponin & CK Cardiac Panel Stat 11/03/18 12:51 EKG-12 Lead Stat 11/03/18 12:59 CT head/brain wo con Stat 11/03/18 13:13 XR chest 1V Stat 11/03/18 13:35 EKG-12 Lead Stat 11/03/18 15:51 Troponin I Stat Discontinued Medications Albuterol (Ventolin) 2.5 mg INH NOW ONE Stop: 11/03/18 13:54 Last Admin: 11/03/18 14:03 Dose: 2.5 mg Sodium Chloride (Normal Saline 0.9%) 1,000 mls @ 1,000 mls/hr IV CONT AMBER Last Infusion: 11/03/18 13:55 Dose: 0 mls/hr Admin: 11/03/18 13:05 Dose: 1,000 mls/hr Ketorolac Tromethamine (Toradol) 15 mg IV NOW ONE Stop: 11/03/18 14:38 Last Admin: 11/03/18 14:40 Dose: 15 mg Nitroglycerin (Nitrostat) 0.4 mg SL NOW ONE Stop: 11/03/18 13:32 Last Admin: 11/03/18 13:34 Dose: 0.4 mg Reevaluation(s) Reevaluation #1: Patient now states that she has chest squeezing and she feels like her lungs are being squeezed. She feels like she can't take a deep breath although she has 100% on her pulse ox and good wave form and does not appear to be in any sort of respiratory distress. She says that she does have a history of esophageal problems but that this feels different. She really is feeling some pressure in her lungs. Time: 13:34 Vital Signs - 8 hr 11/03/18 12:20 11/03/18 13:30 11/03/18 13:34 Temperature 98.1 F Pulse Rate 86 76 75 Respiratory Rate 18 20 Blood Pressure 106/59 L 113/47 L Blood Pressure [Left Arm] 113/47 L Pulse Oximetry 98 100 11/03/18 13:40 11/03/18 14:03 11/03/18 14:35 Temperature Pulse Rate 78 77 86 Respiratory Rate 17 Blood Pressure 109/47 L Blood Pressure [Left Arm] 113/46 L Pulse Oximetry 97 99 11/03/18 15:30 11/03/18 16:30 11/03/18 16:52 Temperature Pulse Rate 85 83 81 Respiratory Rate 18 22 16 Blood Pressure 117/44 L Blood Pressure [Left Arm] 111/44 L 117/44 L Pulse Oximetry 99 99 98 MDM - Neuro Symptoms/Deficit Lab Data Attestation: I reviewed the patient's lab results. Result diagrams: 11/03/18 12:40 11/03/18 12:40 Lab Results 11/03/18 11/03/18 11/03/18 Range/Units 12:40 12:40 12:40 WBC 13.9 H (4.5-11.0) X10^3/uL RBC 4.99 (4.0-5.2) X10^6/uL Hgb 10.6 L (12.0-16.0) g/dL Hct 34.9 L (36-46) % MCV 69.9 L (80-100) fL MCH 21.2 L (26-34) PG MCHC 30.3 (30-36) % RDW 21.6 H (11.6-14.8) % Plt Count 529 H (150-400) X10^3/uL Neut % (Auto) Not Reportable Lymph % (Auto) Not Reportable Arthur % (Auto) Not Reportable Eos % (Auto) Not Reportable Baso % (Auto) Not Reportable Lymph # (Auto) Not Reportable Arthur # (Auto) Not Reportable Baso # (Auto) Not Reportable Total Counted 100 Seg Neutrophils % 73.0 H (38-70) % Band Neutrophils % 1.0 L (3-7) % Lymphocytes % (Manual) 18.0 L (25-45) % Monocytes % (Manual) 3.0 (2-11) % Eosinophils % (Manual) 4.0 (2-4) % Basophils % (Manual) 1.0 (0-1) % Neutrophils # (Manual) 43413 H (4058-6477) /uL RBC Morphology See below Polychromasia 1+ H Hypochromasia 1+ H Poikilocytosis 3+ H Anisocytosis 2+ H Microcytosis 2+ H Tear Drop Cells 1+ H Ovalocytes 2+ H PT 12.8 H (10.1-12.7) SECONDS INR 1.1 (0.9-1.3) APTT 31 (26.4-36.2) SECONDS Sodium 135 L (137-145) mmol/L Potassium 4.0 (3.4-5.1) mmol/L Chloride 96 L (98-107) mmol/L Carbon Dioxide 29 (22-32) mmol/L BUN 16 (7-17) mg/dL Creatinine 0.90 (0.52-1.04) mg/dL Estimated GFR > 60.0 (>60) mL/min BUN/Creatinine Ratio 17.8 (6-22) Glucose 90 (80-110) mg/dL Calcium 9.1 (8.4-10.2) mg/dL Total Bilirubin 0.6 (0.2-1.3) mg/dL AST 23 (14-36) IU/L ALT 12 (9-52) IU/L Alkaline Phosphatase 52 (38-126) U/L Total Creatine Kinase (30-135) U/L CK-MB (CK-2) CK-MB (CK-2) Rel Index Troponin I (0.01-0.034) ng/mL Total Protein 7.1 (6.3-8.2) g/dL Albumin 4.3 (3.5-5.0) g/dL Globulin 2.8 (1.7-4.1) g/dL Albumin/Globulin Ratio 1.5 (1.0-2.8) 11/03/18 11/03/18 Range/Units 12:40 15:51 WBC (4.5-11.0) X10^3/uL RBC (4.0-5.2) X10^6/uL Hgb (12.0-16.0) g/dL Hct (36-46) % MCV (80-100) fL MCH (26-34) PG MCHC (30-36) % RDW (11.6-14.8) % Plt Count (150-400) X10^3/uL Neut % (Auto) Lymph % (Auto) Arthur % (Auto) Eos % (Auto) Baso % (Auto) Lymph # (Auto) Arthur # (Auto) Baso # (Auto) Total Counted Seg Neutrophils % (38-70) % Band Neutrophils % (3-7) % Lymphocytes % (Manual) (25-45) % Monocytes % (Manual) (2-11) % Eosinophils % (Manual) (2-4) % Basophils % (Manual) (0-1) % Neutrophils # (Manual) (0246-9318) /uL RBC Morphology Polychromasia Hypochromasia Poikilocytosis Anisocytosis Microcytosis Tear Drop Cells Ovalocytes PT (10.1-12.7) SECONDS INR (0.9-1.3) APTT (26.4-36.2) SECONDS Sodium (137-145) mmol/L Potassium (3.4-5.1) mmol/L Chloride (98-107) mmol/L Carbon Dioxide (22-32) mmol/L BUN (7-17) mg/dL Creatinine (0.52-1.04) mg/dL Estimated GFR (>60) mL/min BUN/Creatinine Ratio (6-22) Glucose (80-110) mg/dL Calcium (8.4-10.2) mg/dL Total Bilirubin (0.2-1.3) mg/dL AST (14-36) IU/L ALT (9-52) IU/L Alkaline Phosphatase (38-126) U/L Total Creatine Kinase < 20 L (30-135) U/L CK-MB (CK-2) TNP CK-MB (CK-2) Rel Index TNP Troponin I < 0.012 < 0.012 (0.01-0.034) ng/mL Total Protein (6.3-8.2) g/dL Albumin (3.5-5.0) g/dL Globulin (1.7-4.1) g/dL Albumin/Globulin Ratio (1.0-2.8) Point of Care Testing Glucose POC 94 ECG Data Attestation: I personally reviewed and interpreted this ECG as follows: Prior ECG tracings: available for review Interpretation: Normal sinus rhythm rate 79 slight less than 1 mm in V3 similar to previous EKG no ST elevation-compared to EKG in 2013 EKG 2. Sinus rhythm rate 73 similar to prior no ST elevations no changes MDM Narrative Medical decision making narrative: While in the emergency department patient developed some chest squeezing. She had an albuterol and nitroglycerin. Nitroglycerin did not seem to help her at all the albuterol seemed to help some. She was still having some discomfort and then got a dose of Toradol. Toradol seemed to help her chest and her back the most. The patient has been sleeping and comfortable in the emergency department. She really does not have focal deficits or signs or symptoms of stroke. She had negative. She has 2-EKGs and 2-troponins. No known coronary artery disease I think some of her symptoms are her migraine symptoms and also her tiredness may be related to her muscle relaxers of Flexeril and Robaxin. At this time I feel that she is safe to be discharged and follow up with her PCP. Discharge Plan Departure Patient Disposition: Home Clinical Impression: Atypical chest pain Back pain Qualifiers: Back pain location: low back pain Chronicity: unspecified Back pain laterality: midline Sciatica presence: without sciatica Qualified Code(s): M54.5 - Low back pain Discharge Date/Time: 11/03/18 16:54 Interventions: ED Discharge Assessment Last Done: 11/03/18 16:52 Instructions: DI for Atypical Chest Pain Activity Restrictions/Additional Instructions: *You have been diagnosed with atypical chest pain, back *What to do: You may still require a stress test from your PCP. *Continue to take medications as directed ketorolac 10 mg every 6 hours if needed for pain do not take with ibuprofen Aleve, Advil, naproxen or other NSAIDs --> SENT TO [facility] [place] *Follow up with your primary care provider in 2-3 days *Return to ER if you should have increasing chest pain worsening back pain leg weakness or any new, worsening or concerning symptoms Prescriptions: New ketorolac 10 mg tablet 10 mg PO TID PRN (Reason: pain) Qty: 10 RF: 0 No Action fluticasone propion-salmeterol [Advair Diskus] 250 MCG/50 MCG blister with device 1 puff INH BID Qty: 0 RF: 0 cranberry extract 300 mg Tablet 300 mg PO DAILY Qty: 0 RF: 0 tolterodine [Detrol LA] 4 MG capsule,extended release 24hr 4 mg PO DAILY Qty: 0 RF: 0 fexofenadine 180 MG tablet 180 mg PO DAILY Qty: 0 RF: 0 aspirin 81 mg Tablet,Delayed Release (Dr/Ec) 81 mg PO DAILY Qty: 0 RF: 0 montelukast [Singulair] 10 MG tablet 10 mg PO DAILY Qty: 0 RF: 0 escitalopram oxalate [Lexapro] 20 MG tablet 30 mg PO DAILY Qty: 0 RF: 0 cholecalciferol (vitamin D3) [Vitamin D3] 2,000 UNIT capsule 2,000 iu PO DAILY Qty: 0 RF: 0 vitamin E succinate 200 unit Tablet 200 unit PO DAILY Qty: 0 RF: 0 multivitamin [Multiple Vitamins] 1 EACH tablet 1 tab PO DAILY Qty: 0 RF: 0 nystatin-triamcinolone 15 GM cream 1 rakesh Topical PRN PRN (Reason: Cold Sores) Qty: 0 RF: 0 acetaminophen 325 MG tablet 325 mg PO PRN PRN (Reason: Pain (Scale Score 4-6)) Qty: 0 RF: 0 cyclobenzaprine 10 mg tablet 10 mg PO TID PRN (Reason: Spasms) RF: 0 hydroxyurea 500 mg capsule 500 mg PO 4XW RF: 0 ciprofloxacin HCl 250 mg tablet 250 mg PO BIDX14 RF: 0 metronidazole 0.75 % cream 1 applic topical DAILY RF: 0 naratriptan 2.5 mg tablet 2.5 mg PO DAILY MDD 5 mg PRN (Reason: Migraine Headache) RF: 0 Linzess 145 mcg capsule 145 mcg PO BEDTIME RF: 0 allopurinol 300 MG tablet 300 mg PO DAILY RF: 0 acetaminophen-codeine [Tylenol-Codeine #3] 300-30 mg Tablet 1 tab PO PRN PRN (Reason: PAIN) RF: 0 methocarbamol [Robaxin] 500 mg tablet 500 mg PO TID PRN (Reason: muscle spasm) Qty: 30 RF: 0 prednisone 20 mg tablet 20 mg PO DAILY Qty: 5 RF: 0 alprazolam [Xanax] 0.25 mg Tablet 0.25 mg PO TID PRN (Reason: Anxiety) RF: 0 ascorbic acid (vitamin C) [Vitamin C] 500 mg Tablet 500 mg PO DAILY RF: 0 omega-3 fatty acids-fish oil [Fish Oil] 360-1,200 mg Capsule 1 cap PO DAILY RF: 0 Dexilant 60 mg Capsule,Biphase Delayed Releas 60 mg PO DAILY RF: 0 Probiotic 3 billion cell Capsule 3,000 mmu cells PO DAILY RF: 0 oxycodone-acetaminophen 5-325 mg tablet 1 - 2 tab PO Q4-6H PRN (Reason: pain) RF: 0 mupirocin 2 % ointment 1 applic Topical DIRECTED RF: 0 Referrals: Franklyn Mendoza MD [Primary Care Provider] -
[2018-11-03 12:53] LABS: Hematocrit 34.9 % (36-46); Hemoglobin 10.6 g/dL (12.0-16.0); Mean Corpuscular HGB Conc 30.3 % (30-36); Mean Corpuscular Hemoglobin 21.2 PG (26-34); Mean Corpuscular Volume 69.9 fL (80-100); Platelet Count 529 X10^3/uL (150-400); Red Blood Cell Count 4.99 X10^6/uL (4.0-5.2); Red Cell Distribution Width 21.6 % (11.6-14.8); White Blood Cell Count 13.9 X10^3/uL (4.5-11.0)
[2018-11-03 12:55] LABS: Add Manual Diff / Slide Review YES
[2018-11-03 12:56] LABS: INR 1.1 (0.9-1.3); Prothrombin Time 12.8 SECONDS (10.1-12.7)
[2018-11-03 12:58] LABS: PTT Partial Thromboplastin Tim 31 SECONDS (26.4-36.2)
--- NOTE | 2018-11-03 12:59 | DI.CT.S_ITS ---
PROCEDURE: CT HEAD/BRAIN WO CON INDICATIONS: visual changes headache no tpa TECHNIQUE: Noncontrast 4.5 mm thick angled axial sections acquired from the foramen magnum to the vertex, with coronal and sagittal reformats. For radiation dose reduction, the following was used: automated exposure control, adjustment of mA and/or kV according to patient size. COMPARISON: [facility]ed [facility], MR, MR MS BRAIN, 03/03/2017, 15:17. FINDINGS: Image quality: Diagnostic. CSF spaces: Basal cisterns are patent. No extra-axial fluid collections. Ventricles are normal in size and shape. Brain: No midline shift. No intracranial masses or hemorrhage. Beard-white matter interface is normal. There is a low attenuation within the deep white matter of the supratentorial brain are present, similar to the previous MRI. There is a dense calcification identified involving the superior midline aspect of the cerebellum. Skull and face: Calvarium and visualized facial bones are intact, without suspicious lesions. Sinuses: Visualized sinuses and mastoids are clear. IMPRESSION: 1. No acute intracranial hemorrhage. 2. Status of white matter changes are likely related to the patient's known multiple sclerosis. 3. Large area of calcification involving the superior cerebellum is not well characterized. This probably was present on the previous MRI. Please consider contrast enhanced MRI for further evaluation. Dictated by: Teddy Grimaldo M.D. on 11/03/2018 at 12:02 Approved by: Teddy Grimaldo M.D. on 11/03/2018 at 12:04
[2018-11-03 13:00] LABS: Alanine Aminotransferase 12 IU/L (9-52); Albumin 4.3 g/dL (3.5-5.0); Albumin Globulin Ratio 1.5 (1.0-2.8); Alkaline Phosphatase 52 U/L (38-126); Aspartate Aminotransferase 23 IU/L (14-36); BUN Creatinine Ratio 17.8 (6-22); Bilirubin Total 0.6 mg/dL (0.2-1.3); Blood Urea Nitrogen 16 mg/dL (7-17); Calcium 9.1 mg/dL (8.4-10.2); Carbon Dioxide 29 mmol/L (22-32); Chloride 96 mmol/L (98-107); Estimated Glomerular Filt Rate > 60.0 mL/min (>60); Globulin 2.8 g/dL (1.7-4.1); Glucose 90 mg/dL (80-110); HEMOLYSIS < 15 (0-50); Sodium 135 mmol/L (137-145); Total Protein 7.1 g/dL (6.3-8.2)
[2018-11-03] MEDS: SODIUM CHLORIDE 0.9% 1,000 ML 1000 ML IV (13:05)
--- NOTE | 2018-11-03 13:13 | DI.RAD.S_ITS ---
PROCEDURE: XR CHEST 1V INDICATIONS: chest pain TECHNIQUE: One view of the chest was acquired. COMPARISON: [facility], , CHEST 2 VIEW, 09/22/2016, 17:44. FINDINGS: Surgical changes and devices: Surgical clips in the right breast. Lungs and pleura: There is interstitial prominence. No focal consolidation. No pleural effusions or pneumothorax. Mediastinum: Mediastinal contours appear normal. Heart size is normal. Bones and chest wall: No suspicious bony lesions. Overlying soft tissues appear unremarkable. IMPRESSION: No acute cardiopulmonary disease. Dictated by: Rufino Michelle M.D. on 11/03/2018 at 13:48 Approved by: Rufino Michelle M.D. on 11/03/2018 at 13:48
[2018-11-03] MEDS: NITROGLYCERIN 0.4 MG SL TAB SL (13:34)
[2018-11-03 13:38] LABS: Neutrophils Absolute Manual 10286 /uL (3000-5900); Total Cells Counted 100
[2018-11-03 13:43] LABS: Anisocytosis 2+; Microcytosis 2+
[2018-11-03 13:44] LABS: Hypochromasia 1+; Ovalocytes 2+; Poikilocytosis 3+; Polychromasia 1+; Tear Drop Cells 1+
[2018-11-03 13:45] LABS: Creatine Kinase < 20 U/L (30-135)
[2018-11-03 13:58] LABS: Troponin I < 0.012 ng/mL (0.01-0.034)
[2018-11-03] MEDS: ALBUTEROL 2.5 MG/3 ML NEB (ADULT) INH (14:03)
[2018-11-03] MEDS: KETOROLAC 60 MG/2 ML VIAL 15 MG IV (14:40)
[2018-11-03 16:21] LABS: Troponin I < 0.012 ng/mL (0.01-0.034)
== END 2018-11-03 16:54 | disposition home or self-care (01) ==
PROVIDERS: Emergency Provider Emergency Medicine; PCP Family Medicine
DX: R07.89 Other chest pain (principal); M54.5 Low back pain
CPT/HCPCS: 36415; 36591; 70450; 71045; 80053; 82550; 82962; 84484; 85025; 85610; 85730; 93005; 93010; 94150; 94640; 96361; 96374; 99283; 99285; J1885; J7613

== ENCOUNTER → 2018-11-17 13:45 | Outpatient (CLI) | payer MEDICARE, OTHER, SELFPAY ==
--- NOTE | 2018-11-17 | DI.MRI.S_ITS ---
PROCEDURE: MR HEAD/BRAIN WO/W CON INDICATIONS: Multiple sclerosis TECHNIQUE: Noncontrast sagittal and axial FLAIR, axial and coronal T2 fast spin echo, axial VIBE, axial gradient echo, axial diffusion and ADC through the brain. After the administration of contrast, axial and coronal VIBE with fat saturation through the brain. COMPARISON: [facility], MR, MR MS BRAIN, 03/03/2017, 15:17. [facility], MR, BRAIN W&WO CONTRAST, 07/08/2014, 13:00. FINDINGS: Image quality: Excellent. The ventricular system and cortical sulci demonstrate atrophy, consistent for the patient's stated age. There are areas of increased T2/FLAIR signal intensity within the periventricular and subcortical white matter. In addition, prominent hyperintensities are noted in the left frontal subcortical white matter in left parietal occipital periventricular white matter, unchanged. There is a portion of the left frontal hyperintensity demonstrated enhancement previously noted on prior exam although less prominent on more recent exam. There is been near complete interval resolution of enhancement identified within the left parietal-occipital periventricular hyperintense focus. There is no acute intra-or extra axial fluid collection. No acute hemorrhage or midline shift. Brainstem is unremarkable. There are no areas of restricted diffusion. Areas of T2 shine through are again noted. Globes are symmetrical. Sinuses are aerated. Osseous structures are intact. IMPRESSION: 1. Periventricular subcortical white matter hyperintensities consistent with given history of demyelinating disease. Although they are unchanged in size, they do demonstrate loss prominent appearance of contrast enhancement when compared to prior exam. Overall appearance is consistent with demyelinating disease. 2. Mild atrophy and chronic microvascular ischemic changes. Dictated by: Traci Wright M.D. on 11/17/2018 at 15:55 Approved by: Traci Wright M.D. on 11/17/2018 at 15:59
--- NOTE | 2018-11-17 | DI.RAD.S_ITS ---
PROCEDURE: XR LUMBAR SPINE 2-3V INDICATIONS: LOW BACK PAIN TECHNIQUE: 3 views of the lumbar spine were acquired. COMPARISON: [facility], , XR LUMBAR SPINE 2-3V, 10/26/2018, 14:57. FINDINGS: Bones: 5 [id number] vertebrae are present. There is stable mild dextrocurvature of the upper lumbar spine. There is normal AP bony alignment. No acute vertebral body compression fractures. Stable radiographic appearance of moderate multilevel lumbar spondylosis with facet arthrosis. No suspicious bony lesions. Soft tissues: Overlying bowel gas pattern is normal. No suspicious soft tissue calcifications. IMPRESSION: Stable radiographic appearance of moderate multilevel lumbar spondylosis. Dictated by: Torsten Moore M.D. on 11/17/2018 at 17:31 Approved by: Torsten Moore M.D. on 11/17/2018 at 17:33
== END ==
PROVIDERS: PCP Family Medicine; Visit Provider Family Medicine
DX: G35 Multiple sclerosis (principal); M54.5 Low back pain; M47.816 Spondylosis without myelopathy or radiculopathy, lumbar region
CPT/HCPCS: 70553; 72100; A9579

== ENCOUNTER → 2019-04-20 15:47 | Outpatient (CLI) | payer MEDICARE, OTHER, SELFPAY ==
[2019-04-20 16:06] LABS: Add Manual Diff / Slide Review NO; Basophils Absolute Auto 100 /uL (0-100); Basophils Percent Auto 0.8 % (0-2); Eosinophils Absolute Auto 400 /uL (0-450); Eosinophils Percent Auto 3.3 % (2-4); Hematocrit 36.2 % (36-46); Hemoglobin 10.7 g/dL (12.0-16.0); Lymphocytes Absolute Auto 1500 /uL (1100-4500); Lymphocytes Percent Auto 11.4 % (25-40); Mean Corpuscular HGB Conc 29.5 % (30-36); Mean Corpuscular Hemoglobin 20.4 PG (26-34); Mean Corpuscular Volume 69.4 fL (80-100); Monocytes Absolute Auto 600 /uL (0-900); Monocytes Percent Auto 4.5 % (3-14); Neutrophils Absolute Auto 10600 /uL (1500-7000); Platelet Count 450 X10^3/uL (150-400); Red Blood Cell Count 5.21 X10^6/uL (4.0-5.2); Red Cell Distribution Width 23.1 % (11.6-14.8); White Blood Cell Count 13.2 X10^3/uL (4.5-11.0)
[2019-04-20 16:42] LABS: Hypochromasia 1+; Microcytosis 2+; Poikilocytosis 2+; Polychromasia 1+; Schistocytes 1+; Tear Drop Cells 1+
[2019-04-20 16:44] LABS: Ovalocytes 2+
== END ==
PROVIDERS: PCP Family Medicine
DX: D45 Polycythemia vera (principal)
CPT/HCPCS: 36415; 85025

== ENCOUNTER → 2019-10-16 14:24 | Outpatient (CLI) | payer MEDICARE, OTHER, SELFPAY ==
[2019-10-16 14:50] LABS: Add Manual Diff / Slide Review NO; Basophils Absolute Auto 200 /uL (0-100); Basophils Percent Auto 1.3 % (0-2); Eosinophils Absolute Auto 400 /uL (0-450); Eosinophils Percent Auto 3.5 % (2-4); Hematocrit 36.3 % (36-46); Hemoglobin 10.7 g/dL (12.0-16.0); Lymphocytes Absolute Auto 1600 /uL (1100-4500); Mean Corpuscular HGB Conc 29.5 % (30-36); Mean Corpuscular Hemoglobin 20.9 PG (26-34); Mean Corpuscular Volume 70.8 fL (80-100); Monocytes Absolute Auto 500 /uL (0-900); Monocytes Percent Auto 3.9 % (3-14); Neutrophils Absolute Auto 9400 /uL (1500-7000); Neutrophils Percent Auto 78.3 % (50-75); Platelet Count 412 X10^3/uL (150-400); Red Blood Cell Count 5.13 X10^6/uL (4.0-5.2); Red Cell Distribution Width 22.1 % (11.6-14.8); White Blood Cell Count 12.1 X10^3/uL (4.5-11.0)
[2019-10-16 15:02] LABS: Alanine Aminotransferase 10 IU/L (<35); Albumin 4.5 g/dL (3.5-5.0); Albumin Globulin Ratio 1.6 (1.0-2.8); Alkaline Phosphatase 61 U/L (38-126); Aspartate Aminotransferase 24 IU/L (14-36); BUN Creatinine Ratio 16.1 (6-22); Bilirubin Total 0.5 mg/dL (0.2-1.3); Blood Urea Nitrogen 14 mg/dL (7-17); Calcium 9.5 mg/dL (8.4-10.2); Carbon Dioxide 28 mmol/L (22-32); Chloride 99 mmol/L (98-107); Estimated Glomerular Filt Rate > 60.0 mL/min (>60); Globulin 2.9 g/dL (1.7-4.1); Glucose 89 mg/dL (80-110); HEMOLYSIS < 15 (0-50); Potassium 4.2 mmol/L (3.4-5.1); Sodium 136 mmol/L (137-145); Total Protein 7.4 g/dL (6.3-8.2); Uric Acid 5.6 mg/dL (2.5-6.2)
[2019-10-16 15:27] LABS: Anisocytosis 2+
[2019-10-16 15:28] LABS: Ovalocytes 1+
[2019-10-16 16:34] LABS: Folate 18.7 ng/mL (2.76-20.0); Vitamin B12 983 pg/mL (239-931)
== END ==
PROVIDERS: PCP Family Medicine; Referring Provider Family Medicine; Visit Provider Internal Medicine Hematology & Oncology
DX: M12.89 Other specific arthropathies, not elsewhere classified, multiple sites (principal); F32.89 Other specified depressive episodes; K21.9 Gastro-esophageal reflux disease without esophagitis; D45 Polycythemia vera
CPT/HCPCS: 36415; 80053; 82607; 82746; 84550; 85025

== ENCOUNTER → 2019-11-22 12:55 | Outpatient (CLI) | payer MEDICARE, OTHER, SELFPAY ==
--- NOTE | 2019-11-22 | DI.US.S_ITS ---
PROCEDURE: US THYROID INDICATIONS: FOLLOW-UP NODULES TECHNIQUE: Real-time scanning was performed of the thyroid gland, with image documentation. COMPARISON: [facility], [place], US THYROID, 08/07/2018, 11:07. FINDINGS: Right: Thyroid lobe measures 4.3 x 2.0 x 1.8 cm, and is homogeneous in echotexture. Left: Thyroid lobe measures 3.9 x 1.4 x 1.6 cm, and is homogenous in echotexture. 7 mm hypoechoic nodule adjacent to the posterior aspect of the left thyroid lobe. Isthmus: 2.0 mm thick. Nodule number: Left inferior Location: Left inferior Size: Unchanged 0.8 x 0.5 x 0.7 cm. Composition: Solid Echogenicity: Hyperechoic Shape: wider than tall. Margins: Smooth Echogenic foci: None Total points: 4 ACR TI-RADS category: Moderately suspicious Nodule number: 2 Location: Left mid Size: Unchanged 2.6 x 0.3 x 0.3 cm. Composition: Solid Echogenicity: Hypoechoic Shape: wider than tall. Margins: Smooth Echogenic foci: None Total points: 4 ACR TI-RADS category: Moderately suspicious Nodule number: 3 Location: Right inferior Size: Unchanged at 1.1 x 1.0 x 1.0 cm Composition: Solid Echogenicity: Isoechoic Shape: wider than tall. Margins: Smooth Echogenic foci: None Total points: 3 ACR TI-RADS category: Mildly suspicious Nodule number: 4 Location: Right inferior Size: Unchanged 2.6 x 0.4 x 0.6 cm. Composition: Solid Echogenicity: Isoechoic Shape: Wider than tall Margins: Smooth Echogenic foci: None Total points: 3 ACR TI-RADS category: Mildly suspicious Nodule number: 5 Location: Left inferior Size: Unchanged 2.5 x 0.4 x 0.4 cm. Composition: Solid Echogenicity: Hypoechoic Shape: wider than tall. Margins: Smooth Echogenic foci: None Total points: 4 ACR TI-RADS category: Moderately suspicious IMPRESSION: 1. Stable appearance of bilateral thyroid nodules. Recommend continued followup ultrasound as detailed below. 2. Possible left parathyroid adenoma. Recommend correlation with serum calcium levels and if indicated, nuclear medicine parathyroid imaging could be performed. ACR TI-RADS definitions and recommendations: TI-RADS 1 (benign): 0 points. FNA not needed. TI-RADS 2 (not suspicious): 2 points. FNA not needed. TI-RADS 3 (mildly suspicious): 3 points. * FNA if 2.5 cm or larger, follow up if 1.5 cm or larger (at 1, 3, and 5 years). TI-RADS 4 (moderately suspicious): 4-6 points. * FNA if 1.5 cm or larger, follow up if 1 cm or larger (at 1, 2, 3, and 5 years). TI-RADS 5 (highly suspicious): 7 points or more. * FNA if 1 cm or larger, follow up if 0.5 cm or larger (every year for 5 years). Dictated by: Adal NAJERA Interpreted: Van Alba MD on 11/22/2019 at 14:21 Approved by: Van Alba M.D. on 11/22/2019 at 14:52
== END ==
PROVIDERS: PCP Family Medicine; Referring Provider Family Medicine; Visit Provider Family Medicine
DX: E04.2 Nontoxic multinodular goiter (principal)
CPT/HCPCS: 76536

== ENCOUNTER → 2019-12-10 14:45 | Outpatient (CLI) | payer MEDICARE, OTHER, SELFPAY ==
--- NOTE | 2019-12-10 14:47 | DI.US.S_ITS ---
PROCEDURE: US ABDOMEN LIMITED INDICATIONS: POLYCYTHEMIA VERA TECHNIQUE: Real-time focused scanning was performed of the abdomen, with image documentation. COMPARISON: [facility], [place], ABDOMEN COMPLETE, 01/16/2013, 20:08. FINDINGS: Enlarged spleen measuring 17.8 x 6.5 x 17.6 cm, with volume estimated at 1067 cc. IMPRESSION: Sonographic splenomegaly. Dictated by: Adal Harrell [facility] Interpreted: Mendoza Olivier MD on 12/10/2019 at 16:09 Approved by: Mendoza Olivier M.D. on 12/10/2019 at 17:03
== END ==
PROVIDERS: PCP Family Medicine; Referring Provider Internal Medicine Hematology & Oncology; Visit Provider Internal Medicine Hematology & Oncology
DX: D45 Polycythemia vera (principal); R13.10 Dysphagia, unspecified; R16.1 Splenomegaly, not elsewhere classified
CPT/HCPCS: 76705

== ENCOUNTER → 2019-12-17 08:51 | Outpatient (CLI) | payer MEDICARE, OTHER, SELFPAY ==
[2019-12-18 07:24] LABS: COVID19 Sendout Not Detected (Not Detect)
== END ==
PROVIDERS: PCP Family Medicine; Visit Provider Physician Assistant
DX: Z11.59 Encounter for screening for other viral diseases (principal)
CPT/HCPCS: 87635

== ENCOUNTER 2019-12-20 07:52 | Day surgery (SDC) | payer MEDICARE, OTHER, SELFPAY ==
[2019-12-20] VITALS (10 sets, daily range): BP systolic 107–117; BP diastolic 57–66; PULSE 79–86; RESP 12–18; TEMP 34.7–36.9; O2SAT 97–100; BMI 21.9
--- NOTE | 2019-12-20 | PATH_ITS ---
[facility] Accession Number: [id number] . 01 Material submitted: . gastrointestinal site - GASTRIC POLYP . 02 Diagnosis: Stomach, Polyp, Biopsy: Fundic gland polpy. No evidence of Helicobacter on H/E stain. Negative for intestinal metaplasia. Negative for dysplasia and malignancy. V 12/24/2019 1233 Local . 02 Electronically signed: . Ally Strange MD, Pathologist NPI- [id number] . 01 Gross description: . GASTRIC POLYP: Received in formalin are 4 fragment(s) of heaton, soft tissue measuring 0.3 x 0.3 x 0.2 cm to 0.3 x 0.1 x 0.1 cm submitted entirely in 1 cassette(s) /QBJ 12/21/2019 0339 Local . 02 Pathologist provided ICD-10: R10.9 . 02 CPT . 711165 Performed at: 01 [facility] [address] [place] [address], [place], [place] [id number] MD Fredrick Fung MD Phone: [phone] Performed at: 02 [facility] [address] [place], [place] [id number] MD Ally Strange MD Phone: [phone]
[2019-12-20] MEDS: LACTATED RINGERS 1,000 ML 200 ML IV (08:00)
--- NOTE | 2019-12-20 08:25 | PM.PREOP ---
Pre-operative Note COVID-19 COVID-19 status: Negative Result date/Date tested (Pos, Neg/Pending): 12/17/19 Interval Note History & Physical reviewed/Exam performed by Physician: Yes Changes to H&P: No ASA Class (for procedural sedation): I
--- NOTE | 2019-12-20 08:54 | PM.OP.ENDO ---
Operative Date/Time/Diagnoses Date of procedure: 12/20/19 Time of procedure: 08:54 Pre-op diagnosis: Dysphagia Post-op diagnosis: same (Narrowing at 15 cm from the incisors. Dilated to 16 mm diameter. Gastric polyps(appeared to be gastric fundic polyps)) Procedure & Clinicians Study performed: EGD with cold biopsy and balloon dilatation through the scope Same procedure as scheduled: Yes Indications: Dysphagia Surgeon: Pablo Viveros Procedure Notes SCOAP/Timeout: Performed Procedure in detail: The patient had topical anesthetic applied to oropharynx. She was placed in left lateral decubitus position and underwent IV sedation directed by the surgeon consisting of fentanyl and Versed. A bite block was inserted and the scope was advanced through it into the esophagus. The esophagus was unremarkable. GE junction was noted at 40 cm from the incisors. The stomach insufflated well. There were polyps seen in the body, antrum and at the incisura. The pyloric channel was patent. The duodenum was unremarkable to the 4th part. The scope was brought back into the stomach and retroflexed. The proximal stomach normal except for additional polyps. Biopsies were taken of several polyps to confirm the suspicion of gastric fundic polyps. The scope was straightened and brought out through the esophagus again. There was no narrowing of the GE junction and no evidence of Barrios's esophagus. However as I slowly brought the scope up there was a narrowing ring at 15 cm from the incisors. There was mild narrowing. I decided to dilate this and did so to approximately 16 mm diameter. I could see evidence of success under the mucosa. The mucosa was intact however.. The scope was removed and the patient tolerated the procedure well. Scope withdrawal time: Not applicable Sedation minutes: 15 Findings: other findings (Schatzki-like ring at 15 cm from the incisors) Specimen(s): other (Gastric polyp biopsies) Complications: none Post-procedure Recommendations: Continue medication(s) (Dexilant) Follow up: as needed Disposition: PACU
[2019-12-20] MEDS: MIDAZOLAM 5 MG/5 ML VIAL IV (08:56)
[2019-12-20] MEDS: fentaNYL 250 MCG/5 ML INJ IV (08:56)
[2019-12-20] MEDS: LIDOCAINE 4% SOLN 50 ML 20 ML TOP (08:57)
--- NOTE | 2019-12-20 10:22 | SUR.PHASEII ---
pt is awake and states she is sleepy. She states she is ready for coffee and she is going home.
== END 2019-12-20 10:23 | disposition home or self-care (01) ==
PROVIDERS: PCP Family Medicine; Referring Provider Family Medicine; Visit Provider Specialist
PROC: 0DJ08ZZ Inspection of Upper Intestinal Tract, Via Natural or Artificial Opening Endoscopic (ICD-10-PCS; CPT 43235; principal; 2019-12-20 08:45)
DX: R13.10 Dysphagia, unspecified (principal); K31.7 Polyp of stomach and duodenum; K22.2 Esophageal obstruction
CPT/HCPCS: 43249; 43239; 99152; J2250; J3010

== ENCOUNTER → 2020-01-28 12:13 | Outpatient (CLI) | payer MEDICARE, OTHER, SELFPAY ==
--- NOTE | 2020-01-28 | DI.MG.S_ITS ---
BILATERAL DIGITAL SCREENING MAMMOGRAM 3D/2D WITH CAD: 01/28/2020 CLINICAL: Routine screening. Family history of breast cancer. Comparison is made to exams dated: 06/27/2018 mammogram, 04/22/2017 mammogram, and 03/29/2016 mammogram - [facility]. There are scattered fibroglandular elements in both breasts. Current study was also evaluated with a Computer Aided Detection (CAD) system. There are benign calcifications in the left breast. There also are benign post operative findings in the right breast. No significant masses, calcifications, or other findings are seen in either breast. There has been no significant interval change. IMPRESSION: BENIGN There is no mammographic evidence of malignancy. A 1 year screening mammogram is recommended. This exam was interpreted at Station ID: [id number]. NOTE: For mammograms, a report in lay terms will be sent to the patient. Approximately 15% of breast malignancies will not be visualized mammographically. In the management of a palpable breast mass, a negative mammogram must not discourage biopsy of a clinically suspicious lesion. Electronically Signed By: Torsten hester/jany:01/28/2020 19:16:11 copy to: SELENA CHRISTOPHER letter sent: Normal Exam ACR BI-RADS Category 2: Benign Finding(s) 3342F
== END ==
PROVIDERS: PCP Family Medicine; Referring Provider Family Medicine; Visit Provider Family Medicine
DX: Z12.31 Encounter for screening mammogram for malignant neoplasm of breast (principal); Z80.3 Family history of malignant neoplasm of breast
CPT/HCPCS: 77063; 77067

== ENCOUNTER → 2020-04-17 17:14 | Outpatient (CLI) | payer MEDICARE, OTHER, SELFPAY ==
--- NOTE | 2020-04-17 | DI.RAD.S_ITS ---
PROCEDURE: XR LUMBAR SPINE 2-3V INDICATIONS: pain TECHNIQUE: 3 views of the lumbar spine were acquired. COMPARISON: [facility], CR, XR LUMBAR SPINE 2-3V, 11/17/2018, 14:30. FINDINGS: Bones: 5 hli-bep-rwwanga vertebrae are present. There is mild rightward scoliosis of lumbar spine centered at L3 level unchanged from prior study. Degenerative endplate changes and bilateral facet arthrosis throughout lumbar spine is again seen.. No vertebral body compression fractures. No suspicious bony lesions. Soft tissues: Overlying bowel gas pattern is normal. No suspicious soft tissue calcifications. IMPRESSION: Degenerative disc disease throughout lumbar spine. No acute compression fracture or spondylolisthesis. Mild scoliosis. Dictated by: Mendoza Olivier M.D. on 04/17/2020 at 17:41 Approved by: Mendoza Olivier M.D. on 04/17/2020 at 17:44
--- NOTE | 2020-04-17 17:16 | DI.RAD.S_ITS ---
PROCEDURE: XR HIP W PEL IF DONE RT 2V INDICATIONS: RIGHT HIP PAIN TECHNIQUE: AP pelvis with lateral view(s) of the right hip(s). COMPARISON: [facility], CR, XR HIP W PEL IF DONE [place] 3TO4V, 10/26/2018, 14:57. FINDINGS: Bones: No fractures or dislocations. Right worse than left bilateral mild hip joint osteoarthritic changes are seen. Pelvic ring appears intact. No suspicious bony lesions. Soft tissues: The visualized bowel gas pattern is normal. No suspicious soft tissue calcifications. IMPRESSION: Mild right worse than left bilateral hip joint osteoarthritis. No fracture or dislocation. No evidence of avascular necrosis. Dictated by: Mendoza Olivier M.D. on 04/17/2020 at 17:40 Approved by: Mendoza Olivier M.D. on 04/17/2020 at 17:41
== END ==
PROVIDERS: PCP Family Medicine; Referring Provider Family Medicine; Visit Provider Family Medicine
DX: M25.551 Pain in right hip (principal); M16.0 Bilateral primary osteoarthritis of hip; M47.816 Spondylosis without myelopathy or radiculopathy, lumbar region; M41.9 Scoliosis, unspecified
CPT/HCPCS: 72100; 73502

== ENCOUNTER → 2020-06-23 13:42 | Outpatient (CLI) | payer MEDICARE, OTHER, SELFPAY ==
--- NOTE | 2020-06-23 13:44 | DI.MRI.S_ITS ---
PROCEDURE: MR HEAD/BRAIN WO/W CON INDICATIONS: demyelinating disorder of the brain TECHNIQUE: Noncontrast axial T1 spin echo, axial T2 fast spin echo, sagittal and axial FLAIR, coronal T2 fast spin echo, axial gradient echo, axial diffusion and ADC through the brain. After the administration of contrast, axial and coronal T1 spin echo with fat saturation through the brain. COMPARISON: [facility], MR, MR MS BRAIN, 03/03/2017, 15:17. [facility], CT, CT HEAD/BRAIN WO CON, 11/03/2018, 12:43. [facility], MR, MR HEAD/BRAIN WO/W CON, 11/17/2018, 13:56. [facility], MR, BRAIN WITH AND WITHOUT CONTRAS, 01/23/2008, 17:22. [facility], MR, BRAIN W&WO CONTRAST, 07/08/2014, 13:00. [facility], MR, MR BRAIN WITH/WITHOUT CONTRAST, 07/09/2016, 14:19. FINDINGS: Image quality: Diagnostic, with note made of motion artifact. CSF spaces: Basal cisterns are patent. No extra-axial fluid collections. Ventricles are normal in size and shape. Brain: Stable areas of abnormally increased FLAIR signal can be seen involving the posterior aspect of the left cerebral hemisphere. Milder areas of abnormal T2 weighted signal can be seen elsewhere. There is a small amount of abnormal enhancement seen involving the posterior aspect of the left frontal lobe, as on series 13, image 132, which is stable compared to the prior. Mild stable enhancement is also seen involving the medial aspect of the left cerebellar hemisphere, as on series 13, image 57. No significant change can be seen compared to 2019. No midline shift. No intracranial bleeds or masses. No abnormal intracranial enhancement. There is cerebral volume loss for age. There is periventricular white matter chronic small vessel ischemic change. The brainstem appears normal. Diffusion-weighted images demonstrate no acute ischemic insults. No chronic ischemic insults. Normal intravascular flow voids are present. Skull and face: Calvarial marrow is normal in signal. Orbits appear normal. Sinuses: Sinuses and mastoids appear clear. IMPRESSION: Stable areas abnormally increased T2 weighted signal, primarily involving the posterior aspect the left cerebral hemisphere. Stable enhancement seen involving the posterior aspect of the left frontal lobe and the left cerebellar hemisphere. Age-appropriate brain parenchymal volume loss is also seen. No findings of acute or subacute infarction can be seen. Dictated by: Hang Burgos M.D. on 06/23/2020 at 15:11 Approved by: Hang Burgos M.D. on 06/23/2020 at 15:15
== END ==
PROVIDERS: PCP Family Medicine; Referring Provider Internal Medicine Hematology & Oncology; Visit Provider Internal Medicine Hematology & Oncology
DX: G37.9 Demyelinating disease of central nervous system, unspecified (principal); G35 Multiple sclerosis; D45 Polycythemia vera
CPT/HCPCS: 70553

== ENCOUNTER 2020-07-04 16:12 | Emergency (ER) | payer MEDICARE, OTHER, SELFPAY ==
[2020-07-04] VITALS (11 sets, daily range): BP systolic 113–137; BP diastolic 55–82; PULSE 73–86; RESP 17–26; TEMP 36.6; O2SAT 94–99; BMI 23.3
--- NOTE | 2020-07-04 16:32 | DI.RAD.S_ITS ---
PROCEDURE: XR CHEST 1V INDICATIONS: short of breath TECHNIQUE: One view of the chest was acquired. COMPARISON: [facility], CR, XR CHEST 1V, 11/03/2018, 13:34. FINDINGS: Surgical changes and devices: Overlying monitoring leads. Surgical changes in the right breast. Lungs and pleura: Lungs are slightly hyperlucent but clear. No pleural effusions or pneumothorax. Mediastinum: Mediastinal contours appear normal. Heart size is normal. Bones and chest wall: No suspicious bony lesions. Overlying soft tissues appear unremarkable. IMPRESSION: No acute cardiopulmonary disease. Dictated by: Hayde Saez M.D. on 07/04/2020 at 18:11 Approved by: Hayde Saez M.D. on 07/04/2020 at 18:11
[2020-07-04 17:31] LABS: Add Manual Diff / Slide Review NO; Basophils Absolute Auto 100 /uL (0-100); Basophils Percent Auto 1.1 % (0-2); Eosinophils Absolute Auto 100 /uL (0-450); Eosinophils Percent Auto 1.7 % (2-4); Hematocrit 32.5 % (36-46); Hemoglobin 10.6 g/dL (12.0-16.0); Lymphocytes Absolute Auto 1000 /uL (1100-4500); Lymphocytes Percent Auto 18.5 % (25-40); Mean Corpuscular HGB Conc 32.6 % (30-36); Mean Corpuscular Hemoglobin 28.2 PG (26-34); Mean Corpuscular Volume 86.2 fL (80-100); Monocytes Absolute Auto 500 /uL (0-900); Monocytes Percent Auto 9.9 % (3-14); Neutrophils Absolute Auto 3600 /uL (1500-7000); Neutrophils Percent Auto 68.8 % (50-75); Platelet Count 235 X10^3/uL (150-400); Red Blood Cell Count 3.76 X10^6/uL (4.0-5.2); Red Cell Distribution Width 22.9 % (11.6-14.8); White Blood Cell Count 5.2 X10^3/uL (4.5-11.0)
[2020-07-04 17:32] LABS: Lactate (Lactic Acid) 1.2 mmol/L (0.7-2.1)
[2020-07-04 17:33] LABS: Alanine Aminotransferase 20 IU/L (<35); Albumin 4.3 g/dL (3.5-5.0); Albumin Globulin Ratio 1.5 (1.0-2.8); Alkaline Phosphatase 78 U/L (38-126); Aspartate Aminotransferase 30 IU/L (14-36); BUN Creatinine Ratio 13.3 (6-22); Bilirubin Total 0.7 mg/dL (0.2-1.3); Blood Urea Nitrogen 13 mg/dL (7-17); Calcium 9.3 mg/dL (8.4-10.2); Carbon Dioxide 26 mmol/L (22-32); Chloride 97 mmol/L (98-107); Estimated Glomerular Filt Rate 55.8 mL/min (>60); Globulin 2.9 g/dL (1.7-4.1); Glucose 124 mg/dL (80-110); HEMOLYSIS < 15 (0-50); Potassium 3.9 mmol/L (3.4-5.1); Sodium 130 mmol/L (137-145); Total Protein 7.2 g/dL (6.3-8.2)
[2020-07-04 17:34] LABS: INR 1.2 (0.9-1.3)
[2020-07-04 17:41] LABS: NT-proBNP (BNP-Adult 18+) 255 pg/mL (<125)
[2020-07-04 17:58] LABS: Anisocytosis 2+; Hypochromasia 1+; Poikilocytosis 1+; Polychromasia 2+; RBC Morphology ABNORMAL; Schistocytes 1+
[2020-07-04 18:06] LABS: COVID19 -Nasal RAPID Negative (Negative)
[2020-07-04 18:15] LABS: Creatine Kinase 31 U/L (30-135)
--- NOTE | 2020-07-04 18:18 | ED.SOB ---
HPI - SOB/Dyspnea General Chief Complaint: Shortness of Breath/Dyspnea Stated Complaint: SOB Time Seen by Provider: 07/04/20 18:04 Source: patient and family (sister) Mode of arrival: Ambulatory Limitations: no limitations History of Present Illness HPI Narrative: 74-year-old female comes emergency department complaint of shortness of breath increasing for the past week she states that she had episode of chest pressure today about 3:00 p.m. that resolved but she was pale according to her sister. Patient came today because she has been tired and sleeping more. She states that she has polycythemia vera but for some reason has become anemic and she has been transfused twice the most recent 2 weeks ago. She has not had any exertional dyspnea. She states today she tried her rescue inhaler because she does have asthma. It was not helpful at that exact time but she does feel better now. She has had a cough that is been present for weeks which has been nonproductive and alternates between dry and wet. She denies any chest pain otherwise. She denies any swelling in her extremities. She has chronic constipation she did have a bowel movement today with no melena or bright red blood. She has had a recent UTI she has been on antibiotics and this is her 5th day. She continues to have some suprapubic discomfort. She has a history of asthma, GERD, depression, denies any hypertension dyslipidemia diabetes. Her only surgical history is a brain biopsy to evaluate for MS she was never given a exact diagnosis but can not has had multiple MRIs in the past. She states she is currently asymptomatic now she was able to ambulate to the bathroom back to room without any issues. Related Data Home Medications Medication Instructions Recorded Confirmed aspirin 81 mg PO DAILY #0 11/13/12 06/02/20 escitalopram oxalate [Lexapro] 30 mg PO DAILY #0 11/13/12 06/02/20 fexofenadine 180 mg PO DAILY #0 11/13/12 06/02/20 fluticasone propion-salmeterol 1 puff INH BID #0 11/13/12 06/02/20 [Advair Diskus] tolterodine [Detrol LA] 4 mg PO DAILY #0 11/13/12 06/02/20 Dexilant 60 mg PO DAILY 10/07/17 06/02/20 allopurinol 300 mg PO DAILY 10/26/18 06/02/20 linaclotide 145 mcg PO BEDTIME 10/26/18 06/02/20 naratriptan 2.5 mg PO DAILY PRN MDD 5 mg 10/26/18 06/02/20 fluticasone propion-salmeterol 1 inh INHALATION BID 01/28/20 06/02/20 [Advair Diskus] montelukast 10 mg PO DAILY 01/28/20 06/02/20 Allergies Allergy/AdvReac Type Severity Reaction Status Date / Time indomethacin [INDOMETHACIN] Allergy Severe DIFFICULTY Verified 07/04/20 16:31 BREATHING orphenadrine [ORPHENADRINE] Allergy Severe DIFFICULTY Verified 07/04/20 16:31 BREATHING brompheniramine Allergy Unknown Verified 07/04/20 16:31 [BROMPHENIRAMINE] chlorpheniramine Allergy Unknown Verified 07/04/20 16:31 [CHLORPHENIRAMINE] dextromethorphan Allergy Unknown TIGHT CHEST Verified 07/04/20 16:31 [DEXTROMETHORPHAN] lidocaine [LIDOCAINE] Allergy Unknown W/EPI-SHAKE Verified 07/04/20 16:31 S Penicillins [PENICILLINS] Allergy Unknown Verified 07/04/20 16:31 phenylephrine [PHENYLEPHRINE] Allergy Unknown Verified 07/04/20 16:31 phenylpropanolamine Allergy Unknown Verified 07/04/20 16:31 [PHENYLPROPANOLAMINE] pseudoephedrine Allergy Unknown TIGHT CHEST Verified 07/04/20 16:31 [PSEUDOEPHEDRINE] Sulfa (Sulfonamide Allergy Unknown Verified 07/04/20 16:31 Antibiotics) [SULFA (SULFONAMIDE ANTIBIOTICS)] erythromycin base AdvReac Unknown UPSET Verified 07/04/20 16:31 [From ERYTHROCIN] STOMACH Review of Systems Review of Systems ROS Unobtainable: All systems reviewed & are unremarkable except as noted in HPI and below Patient History Medical History Chronic fatigue Chronic headaches Esophageal stricture Hyperuricemia Polycythemia vera Renal insufficiency Surgical History History of hand surgery Hx of brain surgery Hx of breast biopsy Hx of knee surgery Family History Father Diabetes mellitus Heart disease Sister Age: 77 Cancer Breast cancer Mother Gallstones Breast cancer Brother Cancer Social History marital status: unknown household members: family occupational status: previously employed Smoking Status: Former smoker alcohol intake: never substance use type: does not use Smoking Status: Former smoker alcohol intake frequency: a few times a week Substance Use Type: does not use Exam Narrative Exam Narrative: GENERAL: Alert and oriented x three, well-nourished, well-appearing female in mild distress HEENT: Head normocephalic, atraumatic, EOMI, pupils reactive, face symmetric, moist mucous membranes NECK: Supple, full range of motion CARDIOVASCULAR: Regular rate and rhythm without murmurs, rubs or gallops. RESPIRATORY: Breath sounds equal bilaterally, no wheezes rales or rhonchi. ABDOMEN: Soft, nontender. Normoactive bowel sounds all 4 quadrants. No guarding or rebound, rigidity, no mass : No CVA tenderness EXTREMITIES: Normal range of motion, no edema. Neurovascularly intact. NEUROLOGICAL: Cranial nerves II through XII grossly intact. Moving all extremities SKIN: Warm, dry, no petechiae, no rashes or lesions. Initial Vital Signs Initial Vital Signs: Vital Signs Temperature 97.9 F 07/04/20 16:27 Pulse Rate 86 07/04/20 16:27 Respiratory Rate 18 07/04/20 16:27 Blood Pressure 121/55 L 07/04/20 16:27 Pulse Oximetry 96 07/04/20 16:27 Scores GCS Yancy coma scale eye opening: Spontaneous Yancy coma scale verbal response: Orientated [place] coma scale motor response: Obey commands Yancy coma scale total score: 15 Course Orders Ordered: ED Orders 07/04/20 19:08 EKG-12 Lead Stat 07/04/20 20:03 Troponin I Stat Vital Signs Vital signs: Vital Signs - 8 hr 07/04/20 20:00 07/04/20 20:55 Pulse Rate 74 76 Respiratory Rate 22 26 H Blood Pressure 137/82 Pulse Oximetry 95 96 MDM - SOB/Dyspnea Lab Data Attestation: I reviewed the patient's lab results. Result diagrams: 07/04/20 16:50 07/04/20 16:50 Labs: Lab Results 02/26/21 02/26/21 02/26/21 Range/Units 16:50 16:50 16:50 WBC 5.2 (4.5-11.0) X10^3/uL RBC 3.76 L (4.0-5.2) X10^6/uL Hgb 10.6 L (12.0-16.0) g/dL Hct 32.5 L (36-46) % MCV 86.2 (80-100) fL MCH 28.2 (26-34) PG MCHC 32.6 (30-36) % RDW 22.9 H (11.6-14.8) % Plt Count 235 (150-400) X10^3/uL Neut % (Auto) 68.8 (50-75) % Lymph % (Auto) 18.5 L (25-40) % Wheeler % (Auto) 9.9 (3-14) % Eos % (Auto) 1.7 L (2-4) % Baso % (Auto) 1.1 (0-2) % Neut # (Auto) 3600 (6945-9531) /uL Lymph # (Auto) 1000 L (4885-4910) /uL Wheeler # (Auto) 500 (0-900) /uL Eos # (Auto) 100 (0-450) /uL Baso # (Auto) 100 (0-100) /uL Plt Morphology Comment 2+ large platelets RBC Morphology Abnormal Polychromasia 2+ H Hypochromasia 1+ H Poikilocytosis 1+ H Anisocytosis 2+ H Schistocytes 1+ H PT 14.0 H (10.1-12.7) SECONDS INR 1.2 (0.9-1.3) Sodium 130 L (137-145) mmol/L Potassium 3.9 (3.4-5.1) mmol/L Chloride 97 L (98-107) mmol/L Carbon Dioxide 26 (22-32) mmol/L BUN 13 (7-17) mg/dL Creatinine 0.98 (0.52-1.04) mg/dL Estimated GFR 55.8 L (>60) mL/min BUN/Creatinine Ratio 13.3 (6-22) Glucose 124 H (80-110) mg/dL Lactate (0.7-2.1) mmol/L Calcium 9.3 (8.4-10.2) mg/dL Total Bilirubin 0.7 (0.2-1.3) mg/dL AST 30 (14-36) IU/L ALT 20 (<35) IU/L Alkaline Phosphatase 78 (38-126) U/L Total Creatine Kinase (30-135) U/L CK-MB (CK-2) CK-MB (CK-2) Rel Index Troponin I (0.01-0.034) ng/mL NT-Pro-B Natriuret Pep 255 H (<125) pg/mL Total Protein 7.2 (6.3-8.2) g/dL Albumin 4.3 (3.5-5.0) g/dL Globulin 2.9 (1.7-4.1) g/dL Albumin/Globulin Ratio 1.5 (1.0-2.8) Urine Color Urine Appearance Urine pH (4.5-8.0) Ur Specific [place] (1.000-1.035) Urine Protein (Negative) Urine Glucose (UA) (Negative) g/dL Urine Ketones (NEGATIVE) Urine Occult Blood (Negative) Urine Nitrate (Negative) Urine Bilirubin (NEGATIVE) Urine Urobilinogen (0.2) E.U./dL Ur Leukocyte Esterase (NEGATIVE) Urine RBC (0-5/HPF) Urine WBC (0-5/HPF) Urine Bacteria (None) Ur Culture Indicated? SARS-CoV-2 (PCR) (Negative) Blood Type Antibody Screen 07/04/20 07/04/20 07/04/20 Range/Units 16:50 16:50 16:50 WBC (4.5-11.0) X10^3/uL RBC (4.0-5.2) X10^6/uL Hgb (12.0-16.0) g/dL Hct (36-46) % MCV (80-100) fL MCH (26-34) PG MCHC (30-36) % RDW (11.6-14.8) % Plt Count (150-400) X10^3/uL Neut % (Auto) (50-75) % Lymph % (Auto) (25-40) % Wheeler % (Auto) (3-14) % Eos % (Auto) (2-4) % Baso % (Auto) (0-2) % Neut # (Auto) (0956-9180) /uL Lymph # (Auto) (3900-5686) /uL Wheeler # (Auto) (0-900) /uL Eos # (Auto) (0-450) /uL Baso # (Auto) (0-100) /uL Plt Morphology Comment RBC Morphology Polychromasia Hypochromasia Poikilocytosis Anisocytosis Schistocytes PT (10.1-12.7) SECONDS INR (0.9-1.3) Sodium (137-145) mmol/L Potassium (3.4-5.1) mmol/L Chloride (98-107) mmol/L Carbon Dioxide (22-32) mmol/L BUN (7-17) mg/dL Creatinine (0.52-1.04) mg/dL Estimated GFR (>60) mL/min BUN/Creatinine Ratio (6-22) Glucose (80-110) mg/dL Lactate 1.2 (0.7-2.1) mmol/L Calcium (8.4-10.2) mg/dL Total Bilirubin (0.2-1.3) mg/dL AST (14-36) IU/L ALT (<35) IU/L Alkaline Phosphatase (38-126) U/L Total Creatine Kinase 31 (30-135) U/L CK-MB (CK-2) TNP CK-MB (CK-2) Rel Index TNP Troponin I < 0.012 (0.01-0.034) ng/mL NT-Pro-B Natriuret Pep (<125) pg/mL Total Protein (6.3-8.2) g/dL Albumin (3.5-5.0) g/dL Globulin (1.7-4.1) g/dL Albumin/Globulin Ratio (1.0-2.8) Urine Color Urine Appearance Urine pH (4.5-8.0) Ur Specific [place] (1.000-1.035) Urine Protein (Negative) Urine Glucose (UA) (Negative) g/dL Urine Ketones (NEGATIVE) Urine Occult Blood (Negative) Urine Nitrate (Negative) Urine Bilirubin (NEGATIVE) Urine Urobilinogen (0.2) E.U./dL Ur Leukocyte Esterase (NEGATIVE) Urine RBC (0-5/HPF) Urine WBC (0-5/HPF) Urine Bacteria (None) Ur Culture Indicated? SARS-CoV-2 (PCR) (Negative) Blood Type B Positive Antibody Screen Negative 07/04/20 07/04/2007/04/21 Range/Units 17:37 18:40 20:03 WBC (4.5-11.0) X10^3/uL RBC (4.0-5.2) X10^6/uL Hgb (12.0-16.0) g/dL Hct (36-46) % MCV (80-100) fL MCH (26-34) PG MCHC (30-36) % RDW (11.6-14.8) % Plt Count (150-400) X10^3/uL Neut % (Auto) (50-75) % Lymph % (Auto) (25-40) % Wheeler % (Auto) (3-14) % Eos % (Auto) (2-4) % Baso % (Auto) (0-2) % Neut # (Auto) (4137-8041) /uL Lymph # (Auto) (5537-6793) /uL Wheeler # (Auto) (0-900) /uL Eos # (Auto) (0-450) /uL Baso # (Auto) (0-100) /uL Plt Morphology Comment RBC Morphology Polychromasia Hypochromasia Poikilocytosis Anisocytosis Schistocytes PT (10.1-12.7) SECONDS INR (0.9-1.3) Sodium (137-145) mmol/L Potassium (3.4-5.1) mmol/L Chloride (98-107) mmol/L Carbon Dioxide (22-32) mmol/L BUN (7-17) mg/dL Creatinine (0.52-1.04) mg/dL Estimated GFR (>60) mL/min BUN/Creatinine Ratio (6-22) Glucose (80-110) mg/dL Lactate (0.7-2.1) mmol/L Calcium (8.4-10.2) mg/dL Total Bilirubin (0.2-1.3) mg/dL AST (14-36) IU/L ALT (<35) IU/L Alkaline Phosphatase (38-126) U/L Total Creatine Kinase (30-135) U/L CK-MB (CK-2) CK-MB (CK-2) Rel Index Troponin I < 0.012 (0.01-0.034) ng/mL NT-Pro-B Natriuret Pep (<125) pg/mL Total Protein (6.3-8.2) g/dL Albumin (3.5-5.0) g/dL Globulin (1.7-4.1) g/dL Albumin/Globulin Ratio (1.0-2.8) Urine Color Yellow Urine Appearance Clear Urine pH 6.0 (4.5-8.0) Ur Specific [place] <=1.005 (1.000-1.035) Urine Protein Negative (Negative) Urine Glucose (UA) Negative (Negative) g/dL Urine Ketones Negative (NEGATIVE) Urine Occult Blood Negative (Negative) Urine Nitrate Negative (Negative) Urine Bilirubin Negative (NEGATIVE) Urine Urobilinogen 0.2 (0.2) E.U./dL Ur Leukocyte Esterase Trace H (NEGATIVE) Urine RBC None seen (0-5/HPF) Urine WBC 5-10/hpf H (0-5/HPF) Urine Bacteria None seen (None) Ur Culture Indicated? Specimen cultured SARS-CoV-2 (PCR) Negative (Negative) Blood Type Antibody Screen Imaging Data Chest x-ray: Radiologist's Impression: [address] [id number] ReportSigned Patient: Margo Conroy AMR#: [id number]: 8Acct:[id number]/Sex: 74 / FDate of Service: 07/04/20Loc: EDAccession Number: [id number] Procedure: XR chest 1V Ordering Provider: Edwin May D.O. PROCEDURE: XR CHEST 1V INDICATIONS: short of breath TECHNIQUE: One view of the chest was acquired. COMPARISON: Located Within [facility] , XR CHEST 1V, 11/03/2018, 13:34. FINDINGS: Surgical changes and devices: Overlying monitoring leads. Surgical changes in the right breast. Lungs and pleura: Lungs are slightly hyperlucent but clear. No pleural effusions or pneumothorax. Mediastinum: Mediastinal contours appear normal. Heart size is normal. Bones and chest wall: No suspicious bony lesions. Overlying soft tissues appear unremarkable. IMPRESSION: No acute cardiopulmonary disease. Dictated by: Hayde Saez M.D. on 07/04/2020 at 18:11 Approved by: Hayde Saez M.D. on 07/04/2020 at 18:11 ECG Data Attestation: I personally reviewed and interpreted this ECG as follows: Prior ECG tracings: available for review Interpretation: NSR, rate of 82, [place] 140, qrs 78, qtc 450. E to through ST depression. Also in lead 3 possibly lead 2. Patient from 10/26/2018 does appear somewhat similar. No elevation noted. EKG 2. Shows sinus rhythm, rate of 77 P are 140 QRS of 76 and QTC 454. Patient has similar changes, T-wave is slightly less in V3 in comparison to the prior EKG but all other leads appear similar with depression still present 3 and possibly 2. As well as the he to through. MDM Narrative Medical decision making narrative: 74 year old female who comes in with complaint of shortness of breath x 1 week. Patient did have an episode of chest pressure. Her prior episode was related to anemia but she has improved hemoglobin today, consistent with transfusion. Has a mild hyponatremia chronic renal dysfunction, troponin is negative x2, BNP is 255 with no clear signs of pulmonary edema on x-ray or examination. COVID swab is negative. X-ray is negative. Discussed with patient this could potentially be in episodes related to her heart, recommended observation but patient does not wish to stay we did repeat troponin an EKG which did not show acute changes except for possibly change in the 3 but not noted her other leads and no other new changes. Discussed with patient she still prefers to return home we did discuss I would recommend stress testing as we can not rule out a cardiac cause. She has had evaluation for GI bleeding with stool occult but has not had any EGD or colonoscopy for the source of her anemia. All questions answered. Return precautions discussed. Discharge Plan Departure Patient Disposition: Home Clinical Impression: Dyspnea Instructions: DI for Shortness of Breath Activity Restrictions/Additional Instructions: Follow up with your primary care physician in the next 2-3 days for recheck. There is no clear cause for your chest pain found today, I would discussed with your physician about having a stress test. You may continue all your home medications as prescribed. Return to the ER for fevers, worsening shortness of breath, recurrent chest pain or pressure, lightheadedness or passing out, diaphoresis or sweatiness, new swelling in her extremities, persistent vomiting or other new or concerning symptoms. Prescriptions: No Action fluticasone propion-salmeterol [Advair Diskus] 250 MCG/50 MCG blister with device 1 puff INH BID Qty: 0 RF: 0 tolterodine [Detrol LA] 4 MG capsule,extended release 24hr 4 mg PO DAILY Qty: 0 RF: 0 fexofenadine 180 MG tablet 180 mg PO DAILY Qty: 0 RF: 0 aspirin 81 mg Tablet,Delayed Release (Dr/Ec) 81 mg PO DAILY Qty: 0 RF: 0 escitalopram oxalate [Lexapro] 20 MG tablet 30 mg PO DAILY Qty: 0 RF: 0 fluticasone propion-salmeterol [Advair Diskus] 250-50 mcg/dose Blister With Device 1 inh INHALATION BID RF: 0 montelukast 10 mg Tablet 10 mg PO DAILY RF: 0 naratriptan 2.5 mg tablet 2.5 mg PO DAILY MDD 5 mg PRN (Reason: Migraine Headache) RF: 0 linaclotide 145 mcg capsule 145 mcg PO BEDTIME RF: 0 allopurinol 300 MG tablet 300 mg PO DAILY RF: 0 Dexilant 60 mg Capsule,Biphase Delayed Releas 60 mg PO DAILY RF: 0 Referrals: Franklyn Mendoza MD [Primary Care Provider] -
[2020-07-04 18:28] LABS: Troponin I < 0.012 ng/mL (0.01-0.034)
[2020-07-04 18:49] LABS: Bacteria Urine None Seen; RBC Urine None Seen (0-5/HPF)
[2020-07-04 18:51] LABS: Appearance Urine UA CLEAR; Bilirubin Urine UA NEGATIVE (NEGATIVE); Color Urine UA YELLOW; Glucose Urine UA NEGATIVE (Negative); Ketones Urine UA NEGATIVE (NEGATIVE); Leukocyte Esterase Urine UA TRACE (NEGATIVE); Nitrite Urine UA NEGATIVE (Negative); Occult Blood Urine UA NEGATIVE (Negative); Protein Urine UA NEGATIVE (Negative); Specific Gravity Urine UA <=1.005 (1.000-1.035); Urobilinogen Urine UA 0.2 E.U./dL (0.2)
[2020-07-04 19:04] LABS: Culture Indicated Urine Specimen Cultured; WBC Urine 5-10/HPF (0-5/HPF)
[2020-07-04 20:32] LABS: Troponin I < 0.012 ng/mL (0.01-0.034)
== END 2020-07-04 20:56 | disposition home or self-care (01) ==
PROVIDERS: Emergency Medicine; Emergency Provider Emergency Medicine; PCP Family Medicine
DX: R06.00 Dyspnea, unspecified (principal); R07.9 Chest pain, unspecified; D64.9 Anemia, unspecified; J45.909 Unspecified asthma, uncomplicated; Z20.822 Contact with and (suspected) exposure to COVID-19
CPT/HCPCS: 36415; 71045; 80053; 81001; 82550; 83605; 83880; 84484; 85025; 85610; 86850; 86900; 86901; 87077; 87086; 87185; 87186; 87635; 93005; 99284; C9803

== ENCOUNTER → 2020-07-14 12:08 | Outpatient (CLI) | payer MEDICARE, OTHER, SELFPAY ==
--- NOTE | 2020-07-14 12:10 | DI.US.S_ITS ---
PROCEDURE: US ABDOMEN LIMITED INDICATIONS: POLYCYTHEMIA VERA TECHNIQUE: Real-time scanning was performed of the abdominal and retroperitoneal organs, with image documentation. COMPARISON: [facility], , US ABDOMEN LIMITED, 12/10/2019, 15:00. FINDINGS: Liver: Visualized portion of liver shows normal size and echotexture. No discrete hepatic lesion is noted. Spleen: Spleen is enlarged and measures 16.6 x 7.1 x 6.3 cm in size. Normal hepatopetal flow is seen within patent main portal vein. Normal direction of flow is seen in splenic artery and vein. Resistive index is 0.71 and is within normal limits. IMPRESSION: Splenomegaly. No discrete splenic lesion. No gross abnormality is seen in visualized portion of liver. Normal direction of flow is seen in patent main portal vein, splenic artery and vein at the level of splenic hilum. Dictated by: Mendoza Olivier M.D. on 07/14/2020 at 13:29 Approved by: Mendoza Olivier M.D. on 07/14/2020 at 13:31
== END ==
PROVIDERS: PCP Family Medicine; Referring Provider Internal Medicine Hematology & Oncology; Visit Provider Internal Medicine Hematology & Oncology
DX: D45 Polycythemia vera (principal); R16.1 Splenomegaly, not elsewhere classified
CPT/HCPCS: 76705

== ENCOUNTER → 2021-02-10 18:09 | Outpatient (CLI) | payer MEDICARE, OTHER, SELFPAY ==
--- NOTE | 2021-02-10 18:11 | DI.MG.S_ITS ---
BILATERAL DIGITAL SCREENING MAMMOGRAM 3D/2D WITH CAD: 02/10/2021 CLINICAL: Routine screening. Family history of breast cancer. Comparison is made to exams dated: 01/28/2020 mammogram, 06/27/2018 mammogram, and 04/22/2017 mammogram - [facility]. There are scattered fibroglandular elements in both breasts. Current study was also evaluated with a Computer Aided Detection (CAD) system. There are benign calcifications in the left breast. There also are benign post operative findings in the right breast. No significant masses, calcifications, or other findings are seen in either breast. There has been no significant interval change. IMPRESSION: BENIGN There is no mammographic evidence of malignancy. A 1 year screening mammogram is recommended. This exam was interpreted at Station ID: [id number]. NOTE: For mammograms, a report in lay terms will be sent to the patient. Approximately 15% of breast malignancies will not be visualized mammographically. In the management of a palpable breast mass, a negative mammogram must not discourage biopsy of a clinically suspicious lesion. Electronically Signed By: Fredrick strickland/jany:02/11/2021 09:17:50 copy to: SELENA CHRISTOPHER letter sent: Normal Exam ACR BI-RADS Category 2: Benign Finding(s) [id number]
== END ==
PROVIDERS: PCP Family Medicine; Referring Provider Family Medicine; Visit Provider Family Medicine
DX: Z12.31 Encounter for screening mammogram for malignant neoplasm of breast (principal); Z80.3 Family history of malignant neoplasm of breast
CPT/HCPCS: 77063; 77067

== ENCOUNTER → 2021-04-24 12:50 | Outpatient (CLI) | payer MEDICARE, OTHER, SELFPAY ==
--- NOTE | 2021-04-24 | DI.RAD.S_ITS ---
PROCEDURE: XR CHEST 2V INDICATIONS: COUGH TECHNIQUE: 2 views of the chest were acquired. COMPARISON: [facility], CR, XR CHEST 1V, 07/04/2020, 17:18. FINDINGS: Surgical changes and devices: None. Lungs and pleura: Lungs are clear. No pleural effusions or pneumothorax. Mediastinum: Mediastinal contours are normal. Heart size is normal. Bones and chest wall: No suspicious bony abnormalities. Soft tissues appear unremarkable. IMPRESSION: No acute cardiopulmonary abnormality. Dictated by: Bruno Dennis M.D. on 04/24/2021 at 14:05 Approved by: Bruno Dennis M.D. on 04/24/2021 at 14:05
[2021-04-24 13:18] LABS: Add Manual Diff / Slide Review NO; Basophils Absolute Auto 0 /uL (0-100); Basophils Percent Auto 0.8 % (0-2); Eosinophils Absolute Auto 100 /uL (0-450); Eosinophils Percent Auto 1.8 % (2-4); Hematocrit 27.5 % (36-46); Hemoglobin 9.4 g/dL (12.0-16.0); Lymphocytes Absolute Auto 1300 /uL (1100-4500); Lymphocytes Percent Auto 33.7 % (25-40); Mean Corpuscular HGB Conc 34.1 % (30-36); Mean Corpuscular Hemoglobin 30.5 PG (26-34); Mean Corpuscular Volume 89.5 fL (80-100); Monocytes Absolute Auto 300 /uL (0-900); Monocytes Percent Auto 7.2 % (3-14); Neutrophils Absolute Auto 2200 /uL (1500-7000); Neutrophils Percent Auto 56.5 % (50-75); Platelet Count 167 X10^3/uL (150-400); Red Blood Cell Count 3.07 X10^6/uL (4.0-5.2); Red Cell Distribution Width 21.4 % (11.6-14.8); White Blood Cell Count 3.8 X10^3/uL (4.5-11.0)
[2021-04-24 13:38] LABS: Anisocytosis 2+; Ovalocytes 2+; Poikilocytosis 3+; Polychromasia 2+; Tear Drop Cells 1+
[2021-04-24 13:40] LABS: Alanine Aminotransferase 17 IU/L (<35); Albumin 4.7 g/dL (3.5-5.0); Albumin Globulin Ratio 1.6 (1.0-2.8); Alkaline Phosphatase 44 U/L (38-126); Aspartate Aminotransferase 29 IU/L (14-36); BUN Creatinine Ratio 13.9 (6-22); Bilirubin Total 0.6 mg/dL (0.2-1.3); Blood Urea Nitrogen 17 mg/dL (7-17); Calcium 9.7 mg/dL (8.4-10.2); Carbon Dioxide 28 mmol/L (22-32); Chloride 101 mmol/L (98-107); Cholesterol 235 mg/dL (140-199); Estimated Glomerular Filt Rate 43.2 mL/min (>60); Globulin 2.9 g/dL (1.7-4.1); Glucose 101 mg/dL (80-110); HDL Cholesterol 58 mg/dL (40-60); HEMOLYSIS < 15 (0-50); LDL Cholesterol Calculated 159 mg/dL (<100); Lactate Dehydrogenase 915 U/L (313-618); Potassium 4.6 mmol/L (3.4-5.1); Sodium 134 mmol/L (137-145); Total Protein 7.6 g/dL (6.3-8.2); Triglycerides 91 mg/dL (35-150); Uric Acid 7.7 mg/dL (2.5-6.2)
[2021-04-24 14:00] LABS: Hemoglobin A1C% w Est Avg Glu 4.8 % (4.0-6.0)
[2021-04-24 14:13] LABS: T4 Total Thyroxine 5.68 ug/dL (5.5-11.0)
[2021-04-24 14:27] LABS: Vitamin B12 652 pg/mL (239-931)
[2021-04-24 14:28] LABS: Thyroid Stimulating Hormone 2.11 uIU/mL (0.47-4.68)
[2021-04-24 16:57] LABS: Vitamin D 25 Hydroxy (D3) 63.2 ng/mL (30.0-100.0)
[2021-04-24 17:52] LABS: T7 (Free Thyroxine Index) 1.99 (1.65-3.89)
== END ==
PROVIDERS: Internal Medicine Hematology & Oncology; PCP Family Medicine; Referring Provider Family Medicine; Visit Provider Family Medicine
DX: D45 Polycythemia vera (principal); Z79.899 Other long term (current) drug therapy; M15.0 Primary generalized (osteo)arthritis; R06.02 Shortness of breath; D50.9 Iron deficiency anemia, unspecified; Q23.9 Congenital malformation of aortic and mitral valves, unspecified; I10 Essential (primary) hypertension; R00.2 Palpitations
CPT/HCPCS: 36415; 71046; 80053; 80061; 82306; 82607; 83036; 83615; 84436; 84443; 84479; 84550; 85025

== ENCOUNTER → 2021-07-24 12:21 | Outpatient (CLI) | payer MEDICARE, OTHER, SELFPAY ==
[2021-07-24 12:42] LABS: Add Manual Diff / Slide Review NO; Basophils Absolute Auto 0 /uL (0-100); Basophils Percent Auto 0.6 % (0-2); Eosinophils Absolute Auto 100 /uL (0-450); Hematocrit 30.6 % (36-46); Hemoglobin 10.3 g/dL (12.0-16.0); Lymphocytes Absolute Auto 1500 /uL (1100-4500); Mean Corpuscular HGB Conc 33.6 % (30-36); Mean Corpuscular Hemoglobin 30.2 PG (26-34); Mean Corpuscular Volume 89.8 fL (80-100); Monocytes Absolute Auto 300 /uL (0-900); Monocytes Percent Auto 6.2 % (3-14); Neutrophils Absolute Auto 2900 /uL (1500-7000); Neutrophils Percent Auto 59.2 % (50-75); Platelet Count 245 X10^3/uL (150-400); Red Blood Cell Count 3.41 X10^6/uL (4.0-5.2); Red Cell Distribution Width 22.1 % (11.6-14.8); White Blood Cell Count 4.9 X10^3/uL (4.5-11.0)
[2021-07-24 12:59] LABS: Alanine Aminotransferase 21 IU/L (<35); Albumin Globulin Ratio 1.4 (1.0-2.8); Alkaline Phosphatase 46 U/L (38-126); Aspartate Aminotransferase 40 IU/L (14-36); BUN Creatinine Ratio 12.6 (6-22); Bilirubin Total 0.7 mg/dL (0.2-1.3); Blood Urea Nitrogen 16 mg/dL (7-17); Calcium 10.2 mg/dL (8.4-10.2); Carbon Dioxide 30 mmol/L (22-32); Chloride 101 mmol/L (98-107); Cholesterol 257 mg/dL (140-199); Estimated Glomerular Filt Rate 41.2 mL/min (>60); Globulin 3.5 g/dL (1.7-4.1); Glucose 95 mg/dL (80-110); HDL Cholesterol 64 mg/dL (40-60); HEMOLYSIS < 15 (0-50); LDL Cholesterol Calculated 158 mg/dL (<100); Potassium 4.3 mmol/L (3.4-5.1); Sodium 137 mmol/L (137-145); Total Protein 8.5 g/dL (6.3-8.2); Triglycerides 175 mg/dL (35-150); Uric Acid 4.2 mg/dL (2.5-6.2)
[2021-07-24 13:11] LABS: Anisocytosis 3+; Ovalocytes 2+
[2021-07-24 13:12] LABS: Polychromasia 1+; Tear Drop Cells 1+
== END ==
PROVIDERS: Internal Medicine Hematology & Oncology; PCP Family Medicine; Referring Provider Family Medicine; Visit Provider Family Medicine
DX: D45 Polycythemia vera (principal); E04.1 Nontoxic single thyroid nodule; D64.9 Anemia, unspecified; F32.89 Other specified depressive episodes; I10 Essential (primary) hypertension; R06.02 Shortness of breath; R65.11 Systemic inflammatory response syndrome (SIRS) of non-infectious origin with acute organ dysfunction; Z79.899 Other long term (current) drug therapy; N18.30 Chronic kidney disease, stage 3 unspecified
CPT/HCPCS: 36415; 80053; 80061; 84550; 85025

== ENCOUNTER → 2021-08-04 16:35 | Outpatient (CLI) | payer MEDICARE, OTHER, SELFPAY ==
[2021-08-04 18:16] LABS: Creatinine Urine Random 36.1 mg/dL; Protein (Total) Urine Random 10 mg/dL (0-12); Protein Creatinine Ratio Urine 0.27 GRAM/24H
[2021-08-04 18:37] LABS: Microalbumin Urine Random < 0.6 mg/dL (0-1.6)
== END ==
PROVIDERS: PCP Family Medicine; Referring Provider Internal Medicine Nephrology; Visit Provider Internal Medicine Nephrology
DX: N18.32 Chronic kidney disease, stage 3b (principal)
CPT/HCPCS: 82043; 82570; 84156

== ENCOUNTER → 2021-11-23 15:11 | Outpatient (CLI) | payer MEDICARE, OTHER, SELFPAY ==
--- NOTE | 2021-11-23 15:13 | DI.ECHO.S_ITS ---
[facility] +---------+ : : [address] : : : : [id number] : : : : Phone: [phone] Echocardiogram Report + + :Name: DEMARCO VALLADARES Study Date: 11/23/2021 Height: 65 in : :[facility] ReadingLocation: Weight: 160 lb : : Gender: Female BSA: 1.8 m2 : :: 1945 Age: 75 yrs BP: 136/75 mmHg: :Reason For Study: SOB : :Ordering Physician: MELANIE, : :LUCY Hernandez Performed By: Yfn Marks : :Referring: LUCY NAVARRO : + + Interpretation Summary The left ventricle is normal in size and wall thickness. Left ventricular systolic function is normal. The ejection fraction is estimated to be 55-60%. There appears to be a new wall motion abnormality since prior stress echo with hypokinesis along the basal to mid inferolateral segments. Consider ischemic workup if clinically indicated. The right ventricle is normal in size and function. Pulmonary artery pressures cannot be estimated because of the lack of a measurable TR jet velocity. Both atria are normal in size. There is no significant valvular heart disease. The aortic root is normal size. Procedure: A two-dimensional transthoracic echocardiogram with color flow and Doppler was performed. The study quality was technically adequate. Comparison is made with the echocardiogram of 09/03/2015. Left Ventricle: The left ventricle is normal in size and wall thickness. Left ventricular systolic function is normal. The ejection fraction is estimated to be 55-60%. There appears to be a new wall motion abnormality since prior stress echo with hypokinesis along the basal to mid inferolateral segments. Consider ischemic workup if clinically indicated. Diastolic function could not be accurately assessed due to unobtainable data. Right Ventricle: The right ventricle is normal in size and function. Atria: Both atria are normal in size. The interatrial septum grossly appears intact with no obvious evidence for an atrial septal defect. Mitral Valve: The mitral valve is normal in structure and function. There is trace mitral regurgitation. Aortic Valve: The aortic valve is grossly normal. No aortic regurgitation is present. Tricuspid Valve: The tricuspid valve is normal in structure and function. No tricuspid regurgitation. Pulmonary artery pressures cannot be estimated because of the lack of a measurable TR jet velocity. Pulmonic Valve: The pulmonic valve is not well visualized. There is no significant valvular heart disease. Great Vessels: The aortic root is normal size. The ascending aorta could not be visualized. The IVC is of normal diameter and collapses greater than 50% with a sniff. This suggests a low right atrial pressure of 3 mm Hg. Pericardium/ Pleura There is no pericardial effusion. There is no pleural effusion. MMode/2D Measurements & Calculations LVIDd: 4.7 cm LVOT diam: 2.2 cm LVIDs: 3.3 cm Ao root diam: 3.2 cm FS: 29.8 % IVSd: 0.70 cm LVPWd: 0.70 cm LV massey. diameter/BSA (cm/m^2): 2.6 LV sys. diameter/BSA (cm/m^2): 1.8 LA dimension: 2.9 cm RA long axis: 4.8 cm LA A2 area: 14.7 cm2 LA A4 area: 13.9 cm2 LA length (vol): 4.7 cm LA vol: 37.0 ml LA vol index: 20.6 ml/m2 TAPSE_phl: 1.9 cm Doppler Measurements & Calculations Ao V2 max: 100.0 cm/sec LVOT Max Luca: 85.5 cm/sec Ao V2 mean: 73.3 cm/sec LV V1 max P.9 mmHg Ao max P.0 mmHg LV V1 VTI: 19.4 cm Ao mean P.0 mmHg BERENICE(I,D): 3.3 cm2 Ao V2 VTI: 22.6 cm BERENICE(V,D): 3.3 cm2 sev ratio: 0.86 BERENICE indexed to BSA (cm^2/m^2): 1.8 MV E max luca: 61.7 cm/sec SV(LVOT): 73.7 ml MV A max luca: 95.5 cm/sec MV E/A: 0.65 Med Peak E' Luca: 6.0 cm/sec E/E' med: 10.3 Lat Peak E' Luca: 9.9 cm/sec E/E' lat: 6.3 E/e' average: 8.3 MV dec time: 0.31 sec AV VR_phl: 0.86 MV P1/2t-pr_phl: 91.0 msec BERENICE(VTI)/BSA_phl: 1.8 Reading Physician:07:55 AM
== END ==
PROVIDERS: PCP Family Medicine; Referring Provider Family Medicine; Visit Provider Family Medicine
DX: R06.02 Shortness of breath (principal); I10 Essential (primary) hypertension
CPT/HCPCS: 93306

== ENCOUNTER → 2022-01-22 13:08 | Outpatient (CLI) | payer MEDICARE, OTHER, SELFPAY ==
--- NOTE | 2022-01-22 | DI.MRI.S_ITS ---
PROCEDURE: MR HEAD/BRAIN WO CON INDICATIONS: MEMORY LOSS TECHNIQUE: Non-contrast axial T1 spin echo, axial T2 fast spin echo, sagittal and axial FLAIR, coronal T2 fast spin echo, axial gradient echo, axial diffusion and ADC through the brain. COMPARISON: Outside [facility], MR, MR BRAIN WITHOUT CONTRAST, 12/25/2019, 10:03. [facility], MR, MR HEAD/BRAIN WO/W CON, 11/17/2018, 13:56. [facility], MR, MR HEAD/BRAIN WO/W CON, 06/23/2020, 13:48. [facility], MR, MR BRAIN WITHOUT CONTRAST, 01/06/2021, 13:52. [facility], MR, MR MS BRAIN, 03/03/2017, 15:17. FINDINGS: Image quality: Excellent. CSF spaces: Ventricles appear symmetric in size and shape. Basal cisterns are patent. No extra-axial fluid collections. Brain: As previously demonstrated, there is abnormally increased T2 weighted/FLAIR signal seen involving the left frontal parietal region. This is similar to the prior examination. There is sparing of the subcortical U fibers. No intracranial bleeds or mass effects. There is cerebral volume loss for age. There are periventricular and deep white matter chronic small vessel ischemic changes. Brainstem appears normal. Diffusion-weighted images show no acute ischemic insults. No chronic ischemic insults. Normal intravascular flow voids are present. Skull and face: Calvarial bone marrow is normal in signal. Orbits are normal. Sinuses: Sinuses and mastoids are clear. IMPRESSION: Stable increased T2 weighted signal within the white matter of the left frontal parietal region. This is nonspecific. Please consider low-grade neoplasm. Dictated by: Hang Burgos M.D. on 01/22/2022 at 13:52 Approved by: Hang Burgos M.D. on 01/22/2022 at 14:01
== END ==
PROVIDERS: Family Provider Psychiatry & Neurology Neurology; PCP Family Medicine; Referring Provider Psychiatry & Neurology Neurology; Visit Provider Psychiatry & Neurology Neurology
DX: R47.89 Other speech disturbances (principal); R93.0 Abnormal findings on diagnostic imaging of skull and head, not elsewhere classified; R41.3 Other amnesia
CPT/HCPCS: 70551

== ENCOUNTER 2022-02-08 11:30 | Outpatient (RCR) | payer MEDICARE, OTHER, SELFPAY ==
--- NOTE | 2022-02-01 12:30 | ST.OPIE ---
Visit Care Team Role Provider Type Leif Irving MD Family Provider Non-Staff Referring Provider Specialty: Neurology Address: [address] [facility], [place], [address] Email: Franklyn Mendoza MD Attending Provider Physician Primary Care Provider Specialty: Family Practice Address: [address], [address], [place], [address] Email: Speech-Language Pathology Initial Evaluation SR. MANAGER CORPORATE COMMUNICATIONS Adult Cognitive Linguistic Eval Start: 02/01/22 10:53 Freq: Status: Active Protocol: Document 02/01/22 10:53 DIANA (Rec: 02/01/22 11:29 ZS [id number]) Adult Cognitive Linguistic Evaluation Session Time Visit Start Time 09:45 Visit Stop Time 10:20 Total Visit Minutes 35 Visit Information Visit Number Initial Evaluation Plan of Care Dates 02/01/2022 - 05/08/2022 Insurance Information Medicare Referral Referring Provider Dr. Irving Reason for Referral Word-finding difficulty, memory loss (short- and long- term) Setting Assessment Location Outpatient Care Visit Type Note Type Initial evaluation Next Note Type Next Note Type Treatment Note Patient Information Identification Type Name Patient History Per medical history: Margo Conroy is a 74-year-old female who presents for continued evaluation of episode of confusion in the setting of chronic white matter changes on MRI scan of the brain. Pt has been living with her sister and nephew for at least the past year and had one episode of confusion in the setting of UTI. Had workup for stroke in and had negative workup for stroke at [facility]. Patient was previously seen by neurologist Dr. Holbrook on 08/09/2017. According to family members, the pt has had memory decline and episodic transient episode of decreased attentiveness; but no evidence of seizure- like activity. Pt reports having difficulty with word finding issues and short-term recall and sometimes repeating herself but denies issues with independent ADLs. She feels comfortable driving butonly local distances. Denies getting lost. 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 Denies any new medication effects, but reports that due to the polycythemia vera she was switched from hydroxy urea to a different treatment of directed chemotherapy beginning of this year and this may have resulted in further memory decline. Denies any hallucinations or wandering. Denies any substance abuse history. Pt has reported some cognitive fatigue symptoms. Denies sleep issues or changes in appetite or mood personality or behavior. Denies a family a history of dementia but her sister reportedly has similar memory issues. Pt has lab work -up in the past that indicated positive JAYE and rheumatoid factor and ANCA, resulting in referral to rheumatology which resulted in diagnosis of fibromyalgia. Pt has had extensive negative work-up for MS and this also included brain biopsy. Language(s) Spoken in the Home [facility] Vision Status Impaired Comments wears glasses Previous Therapy Previous Speech-Language Therapy No Subjective Patient Report Margo arrived late accompanied by her nephew, Spike, who was present for the session. She reported cognitive fatigue, stating word finding is worse in the evenings, word finding difficulties, and short- and long-term memory loss. Mental Status Alert,Responsive,Cooperative Assessment Oral Motor Examination Completed No Formal Assessment Standardized Test/Screener Type Cognitive Linguistic Quick Test (CLQT) Administration Complete Results Results of the CLQT place Margo 's attention, memory, clock drawing, visuospatial skills, executive functions, and language scores WNL. Margo was observed to take more time during mazes and design generation tasks, though exhibited no errors as a result of slowed pace. Pt reported her performance may be different if she were evaluated in the evening, as she often experiences more difficulty with memory and word finding tasks in the evenings. The pt is currently on several medications with a side effect of fatigue (i.e., naratriptan, escitalopram, allopurinol, montelukast, tulterodine, linzess) that may contribute to cognitive fatigue through the day. She is also receiving jakafil treatment for polycythemia vera, which can have side effects of disorganization, confusion, word finding difficulties, mental fogginess , short attention span, difficulty concentrating, short-term memory problems, taking longer to complete tasks, and difficulty with verbal or visual memory. Anthony is likely experiencing cognitive difficulties as a result of medical side effects of medications. Recommend speech therapy to provide internal and external strategies for increased memory for the purposes of improving communication and following directions, especially in emergency situations. Prognosis Prognosis Fair Based on Cognitive status,Family support,Comorbidities Plan of Care Speech-Language Treatment Yes Short Term Goals 1. Review results of CLQT 2. Margo will participate in education regarding cognitive domains and impact of medications on cognitive skills. 3. Margo will demonstrate independent use of internal strategies to increase word finding, as evidenced by reduced (2-3 instances of word finding difficulty in a 10-15 minute conversation) word finding difficulty during conversation. 4. Margo will demonstrate independent use of external memory strategies, as reported by pt and family.
--- NOTE | 2022-02-01 12:30 | ST.OPPOC ---
Physical, Occupational & Speech Therapy At [facility] Visit Care Team Role Provider Type Leif Irving MD Family Provider Non-Staff Referring Provider Address: [address], [place], [address] Franklyn Mendoza MD Attending Provider Physician Primary Care Provider Address: [address], [address], [place], [address] Speech Pathology Plan of Care Plan of Care Dates 02/01/2022 - 05/08/[address] Irving Patient History Per medical history: Margo Conroy is a 74-year- old female who presents for continued evaluation of episode of confusion in the setting of chronic white matter changes on MRI scan of the brain. Pt has been living with her sister and nephew for at least the past year and had one episode of confusion in the setting of UTI. Had workup for stroke in and had negative workup for stroke at [facility]. Patient was previously seen by neurologist Dr. Holbrook on 08/09/2017. According to family members, the pt has had memory decline and episodic transient episode of decreased attentiveness; but no evidence of seizure-like activity. Pt reports having difficulty with word finding issues and short-term recall and sometimes repeating herself but denies issues with independent ADLs. She feels comfortable driving butonly local distances. Denies getting lost. 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 Denies any new medication effects, but reports that due to the polycythemia vera she was switched from hydroxy urea to a different treatment of directed chemotherapy beginning of this year and this may have resulted in further memory decline. Denies any hallucinations or wandering. Denies any substance abuse history. Pt has reported some cognitive fatigue symptoms. Denies sleep issues or changes in appetite or mood personality or behavior. Denies a family a history of dementia but her sister reportedly has similar memory issues. Pt has lab work-up in the past that indicated positive JAYE and rheumatoid factor and ANCA, resulting in referral to rheumatology which resulted in diagnosis of fibromyalgia. Pt has had extensive negative work-up for MS and this also included brain biopsy. Short Term Goals 1. Review results of CLQT 2. Margo will participate in education regarding cognitive domains and impact of medications on cognitive skills. 3. Margo will demonstrate independent use of internal strategies to increase word finding, as evidenced by reduced (2-3 instances of word finding difficulty in a 10-15 minute conversation) word finding difficulty during conversation. 4. Margo will demonstrate independent use of external memory strategies, as reported by pt and family. Comment: Electronically Signed by: FRANCK Jeffery 02/01/22 4331 If you are in agreement with this Plan of Care, please return a signed and dated copy. I have reviewed this Plan of Care and certify that the skilled therapy services above are required to meet the patient?s needs. Physician Signature Date Printed Name and Credentials Clinical Instructor Signature Printed Name and Credentials
--- NOTE | 2022-02-08 13:12 | ST.OPDS ---
Visit Care Team Role Provider Type Leif Irving MD Family Provider Non-Staff Referring Provider Address: [address] [facility], [place], [address] Franklyn Mendoza MD Attending Provider Physician Primary Care Provider Address: [address], [address], [place], [address] DECISION SUPPORT ANALYST Treatment Note DECISION SUPPORT ANALYST Treatment Note Start: 02/08/22 11:42 Freq: Status: Active Protocol: Document 02/08/22 11:43 ZS (Rec: 02/08/22 11:47 ZS [id number]) Speech Pathology Treatment Note Session Time Visit Start Time 11:45 Visit Stop Time 12:10 Total Visit Minutes 25 Visit Information Visit Number 1 Plan of Care Dates 02/01/2022 - 05/08/2022 Insurance Information Medicare Setting Treatment Setting Outpatient Care Visit Type Note Type Discharge Summary General Information Patient History Per medical history: Margo Conroy is a 74-year-old female who presents for continued evaluation of episode of confusion in the setting of chronic white matter changes on MRI scan of the brain. Pt has been living with her sister and nephew for at least the past year and had one episode of confusion in the setting of UTI. Had workup for stroke in and had negative workup for stroke at [facility]. Patient was previously seen by neurologist Dr. Holbrook on 08/09/2017. According to family members, the pt has had memory decline and episodic transient episode of decreased attentiveness; but no evidence of seizure- like activity. Pt reports having difficulty with word finding issues and short-term recall and sometimes repeating herself but denies issues with independent ADLs. She feels comfortable driving butonly local distances. Denies getting lost. Pt denies any interval REVIEW SCHEDULING COORDINATOR trauma or REVIEW SCHEDULING COORDINATOR infections. Denies any new medication effects, but reports that due to the polycythemia vera she was switched from hydroxy urea to a different treatment of directed chemotherapy beginning of this year and this may have resulted in further memory decline. Denies any hallucinations or wandering. Denies any substance abuse history. Pt has reported some cognitive fatigue symptoms. Denies sleep issues or changes in appetite or mood personality or behavior. Denies a family a history of dementia but her sister reportedly has similar memory issues. Pt has lab work -up in the past that indicated positive JAYE and rheumatoid factor and ANCA, resulting in referral to rheumatology which resulted in diagnosis of fibromyalgia. Pt has had extensive negative work-up for MS and this also included brain biopsy. Results of the CLQT place Margo 's attention, memory, clock drawing, visuospatial skills, executive functions, and language scores WNL. Margo was observed to take more time during mazes and design generation tasks, though exhibited no errors as a result of slowed pace. Pt reported her performance may be different if she were evaluated in the evening, as she often experiences more difficulty with memory and word finding tasks in the evenings. The pt is currently on several medications with a side effect of fatigue (i.e., naratriptan, escitalopram, allopurinol, montelukast, tulterodine, linzess) that may contribute to cognitive fatigue through the day. She is also receiving jakafil treatment for polycythemia vera, which can have side effects of disorganization, confusion, word finding difficulties, mental fogginess , short attention span, difficulty concentrating, short-term memory problems, taking longer to complete tasks, and difficulty with verbal or visual memory. Pt is likely experiencing cognitive difficulties as a result of medical side effects of medications. Recommend speech therapy to provide internal and external strategies for increased memory for the purposes of improving communication and following directions, especially in emergency situations. Subjective Identification Type Name Identification Reconciled With Medical Record Others Present Family Observations/Patient Presentation Margo arrived late accompanied by her nephew, Spike, who was present for the session. Chief Complaint(s) Language,Cognitive Objective Short Term Goals 1. Review results of CLQT 2. Margo will participate in education regarding cognitive domains and impact of medications on cognitive skills. 3. Margo will demonstrate independent use of internal strategies to increase word finding, as evidenced by reduced (2-3 instances of word finding difficulty in a 10-15 minute conversation) word finding difficulty during conversation. 4. Margo will demonstrate independent use of external memory strategies, as reported by pt and family. Treatment Activities Reviewed results of CLQT. Discussed impact of medications and cancer treatment on cognitive skills and cognitive fatigue. Discussed internal strategies for word finding difficulties and external memory strategies . Discussed discharge from speech therapy given results are WNL and current language and cognitive symptoms are likely due to medication side effects. Pt expressed understanding and agreement. Assessment Assessment of Improvement Results of the CLQT place Margo 's attention, memory, clock drawing, visuospatial skills, executive functions, and language scores WNL. She talked about modifying medications to minimize side effects and education was provided on relationships between medications and encouraged Margo to discuss modifications to medications with her PCP rather than self- management of dosage. She expressed understanding. Pt reported she has already implemented strategies for memory and word finding and does not need support with this. Discharging from speech therapy as pt tested WNL and is confident in use of strategies in home environment . Reviewed with Patient Goals,Home Exercise Program Plan Provided Patient/Caregiver Instruction Home Exercise Program,Plan of Care,Questions/Concerns Therapy Recommendations Discharge from Speech Therapy Reason for Discharge Pt tested WNL.
== END 2022-02-08 13:48 ==
LOC: SP 11:30
PROVIDERS: Family Provider Psychiatry & Neurology Neurology; PCP Family Medicine; Referring Provider Psychiatry & Neurology Neurology; Visit Provider Family Medicine
DX: R41.3 Other amnesia (principal); R47.89 Other speech disturbances
CPT/HCPCS: 96125; 97129; 97130

== ENCOUNTER → 2022-03-15 08:27 | Outpatient (CLI) | payer MEDICARE, OTHER, SELFPAY ==
[2022-03-15 09:39] LABS: COVID19 -Nasal RAPID POSITIVE (Negative)
--- NOTE | 2022-03-31 20:37 | DI.NM.S_ITS ---
DATE OF SERVICE: 03/31/2022 PROCEDURE: Exercise perfusion study. INDICATION: Chest pain, palpitation, shortness of breath. RADIOPHARMACEUTICAL: 25.7 millicurie technetium-99m Myoview IV was injected at stress and 12.2 millicurie technetium-99m Myoview IV was injected at rest. CARDIAC STRESS: The patient underwent exercise perfusion study under the supervision of an attending staff. Overall, she walked on partial Shahid protocol for about 5 minutes and 12 seconds. After walking on Shahid protocol for 4 minutes and 30 seconds, it had to be switched manually, as she was not able to keep up with treadmill speed. She achieved maximum heart rate of 134, which was 92 percent of predicted heart rate. Normal blood pressure response. No anginal symptoms. Had shortness of breath, but no chest pain. Baseline rhythm was sinus with nonspecific ST-T changes. During stress, no convincing new ischemic changes seen. Rare PACs. No complex arrhythmias. DENNY positive 15 percent. The patient achieved 7 METs of workload. Peak blood pressure 158/80 mmHg. RAW DATA: Breast shadow was seen. GATED STUDY: Resting LV ejection fraction 78 and stress LV ejection fraction 96 percent with rest resting end-diastolic volume 58 mL and TID ratio 0.68, which is within normal limits. Lung/heart ratio 0.42, which is within normal limits. MYOCARDIAL PERFUSION SCAN: Stress supine, resting supine and stress prone images were compared to each other. Resting supine images revealed minimally decreased perfusion of distal anteroseptum. The stress supine and stress prone images revealed normal myocardial perfusion. I do not see any convincing ischemia or infarction. CONCLUSION: This is a normal myocardial perfusion study without any convincing ischemia or infarction. Diminished exercise tolerance. Functional aerobic impairment positive 15 percent. Normal hemodynamic response. No new convincing ischemic changes. No complex arrhythmias. No chest pain. Overall, low-risk myocardial perfusion scan. Margo Conroy - ANNY/roberto/porfirio doc#: [id number]/job#: [id number] dd: 03/31/2022 17:03:00 dt: 03/31/2022 20:26:00 DICTATING MD/COPIES TO: Rafael Barton MD COPIES MNE: JOHANN;
== END ==
PROVIDERS: Family Provider Psychiatry & Neurology Neurology; PCP Family Medicine; Referring Provider Internal Medicine Cardiovascular Disease; Visit Provider Internal Medicine Cardiovascular Disease
DX: U07.1 COVID-19 (principal); R07.9 Chest pain, unspecified; R06.02 Shortness of breath; R00.2 Palpitations
CPT/HCPCS: 78452; 87635; 93017; A9502

== ENCOUNTER → 2022-03-29 12:48 | Outpatient (CLI) | payer MEDICARE, OTHER, SELFPAY ==
--- NOTE | 2022-03-29 12:50 | DI.MG.S_ITS ---
BILATERAL DIGITAL SCREENING MAMMOGRAM 3D/2D WITH CAD: 03/29/2022 CLINICAL: Routine screening. Family history of breast cancer. Comparison is made to exams dated: 02/10/2021 mammogram, 01/28/2020 mammogram, and 06/27/2018 mammogram - [facility]. There are scattered areas of fibroglandular density in both breasts (category b / 25%-50% glandular tissue). Current study was also evaluated with a Computer Aided Detection (CAD) system. There are benign calcifications in the left breast. There also are benign post operative findings in the right breast. No significant masses, calcifications, or other findings are seen in either breast. There has been no significant interval change. IMPRESSION: BENIGN There is no mammographic evidence of malignancy. A 1 year screening mammogram is recommended. Based on the Tyrer Cuzick model (a risk assessment model) the patient's lifetime risk is 14.2% and her 10 year risk is 12.8%. According to the ACR, ACS, and NCCN guidelines, an annual breast MRI exam along with mammogram is recommended if the patient's lifetime risk is 20% or greater. This exam was interpreted at Station ID: [id number]. NOTE: For mammograms, a report in lay terms will be sent to the patient. Approximately 15% of breast malignancies will not be visualized mammographically. In the management of a palpable breast mass, a negative mammogram must not discourage biopsy of a clinically suspicious lesion. Electronically Signed By: Van gustafson/jany:03/29/2022 14:22:49 copy to: SELENA CHRISTOPHER letter sent: Normal Exam ACR BI-RADS Category 2: Benign Finding(s) 3342F
== END ==
PROVIDERS: Family Provider Psychiatry & Neurology Neurology; PCP Family Medicine; Referring Provider Family Medicine; Visit Provider Family Medicine
DX: Z12.31 Encounter for screening mammogram for malignant neoplasm of breast (principal); Z80.3 Family history of malignant neoplasm of breast
CPT/HCPCS: 77063; 77067

== ENCOUNTER → 2022-03-31 11:08 | Outpatient (CLI) | payer MEDICARE, OTHER, SELFPAY | PROVIDERS: Family Provider Psychiatry & Neurology Neurology; PCP Family Medicine; Referring Provider Internal Medicine Cardiovascular Disease; Visit Provider Internal Medicine Cardiovascular Disease | DX: R07.9 Chest pain, unspecified (principal); R06.02 Shortness of breath; R00.2 Palpitations ==

== ENCOUNTER → 2022-05-13 15:31 | Outpatient (CLI) | payer MEDICARE, OTHER, SELFPAY ==
[2022-05-13 16:17] LABS: Add Manual Diff / Slide Review NO; Basophils Absolute Auto 0 /uL (0-100); Basophils Percent Auto 0.6 % (0-2); Eosinophils Absolute Auto 100 /uL (0-450); Eosinophils Percent Auto 2.4 % (2-4); Hematocrit 29.9 % (36-46); Hemoglobin 9.7 g/dL (12.0-16.0); Lymphocytes Absolute Auto 1300 /uL (1100-4500); Mean Corpuscular HGB Conc 32.6 % (30-36); Mean Corpuscular Hemoglobin 29.1 PG (26-34); Mean Corpuscular Volume 89.5 fL (80-100); Monocytes Absolute Auto 400 /uL (0-900); Monocytes Percent Auto 8.5 % (3-14); Neutrophils Absolute Auto 2600 /uL (1500-7000); Neutrophils Percent Auto 58.5 % (50-75); Platelet Count 238 X10^3/uL (150-400); Red Blood Cell Count 3.34 X10^6/uL (4.0-5.2); Red Cell Distribution Width 19.4 % (11.6-14.8); White Blood Cell Count 4.5 X10^3/uL (4.5-11.0)
[2022-05-13 16:49] LABS: Alanine Aminotransferase 28 IU/L (<35); Albumin 4.5 g/dL (3.5-5.0); Albumin Globulin Ratio 1.4 (1.0-2.8); Alkaline Phosphatase 51 U/L (38-126); Aspartate Aminotransferase 29 IU/L (14-36); BUN Creatinine Ratio 14.5 (6-22); Bilirubin Total 0.5 mg/dL (0.2-1.3); Blood Urea Nitrogen 17 mg/dL (7-17); Calcium 9.3 mg/dL (8.4-10.2); Carbon Dioxide 27 mmol/L (22-32); Chloride 98 mmol/L (98-107); Estimated Glomerular Filt Rate 49 mL/min (>60); Globulin 3.2 g/dL (1.7-4.1); Glucose 101 mg/dL (80-110); HEMOLYSIS < 15 (0-50); Potassium 3.8 mmol/L (3.4-5.1); Sodium 136 mmol/L (137-145); Total Protein 7.7 g/dL (6.3-8.2)
[2022-05-13 17:23] LABS: Thyroid Stimulating Hormone 1.18 uIU/mL (0.47-4.68)
== END ==
PROVIDERS: Family Provider Psychiatry & Neurology Neurology; PCP Family Medicine; Referring Provider Internal Medicine Hematology & Oncology; Visit Provider Internal Medicine Hematology & Oncology
DX: R49.0 Dysphonia (principal)
CPT/HCPCS: 36415; 80053; 84439; 84443; 85025

== ENCOUNTER → 2022-05-17 13:14 | Outpatient (CLI) | payer MEDICARE, OTHER, SELFPAY ==
--- NOTE | 2022-05-17 | DI.RAD.S_ITS ---
PROCEDURE: XR CHEST 2V INDICATIONS: essential (primary) hypertension TECHNIQUE: 2 views of the chest were acquired. COMPARISON: [facility], CR, XR CHEST 1V, 07/04/2020, 17:18. [facility], CR, XR CHEST 2V, 04/24/2021, 13:12. FINDINGS: Surgical changes and devices: Right breast surgical clips. Lungs and pleura: Lungs are clear. No pleural effusions or pneumothorax. Mediastinum: Mediastinal contours are normal. Heart size is normal. Bones and chest wall: No suspicious bony abnormalities. Soft tissues appear unremarkable. IMPRESSION: No acute cardiopulmonary disease. Dictated by: Adal Harrell RRKezia Interpreted: Esteban Betancur MD on 05/17/2022 at 14:33 Transcribed by: LOY on 05/17/2022 at 14:33 Approved by: Esteban Betancur M.D. on 05/17/2022 at 18:22
--- NOTE | 2022-05-17 13:18 | DI.US.S_ITS ---
PROCEDURE: US THYROID INDICATIONS: F/U NODULES TECHNIQUE: Real-time scanning was performed of the thyroid gland, with image documentation. COMPARISON: [facility], US, US THYROID, 11/22/2019, 13:04. FINDINGS: Right: Thyroid lobe measures 4.5 x 1.6 x 1.7 cm, and is homogeneous in echotexture. Left: Thyroid lobe measures 3.5 x 1.5 x 1.5 cm, and is homogenous in echotexture. Isthmus: 0.1 cm thick. Nodule number: 1 Location: Left inferior Size: 0.7 x 0.5 x 0.8 cm, not significantly changed. Composition: Solid Echogenicity: Hypoechoic Shape: Wider than tall Margins: Smooth Echogenic foci: None Total points: 4 ACR TI-RADS category: Moderately suspicious Nodule number: 2 Location: Left mid Size: 0.5 x 0.3 x 0.3 cm, not significantly changed Composition: Predominantly solid Echogenicity: Hypoechoic Shape: Wider than tall Margins: Smooth Echogenic foci: None Total points: 4 ACR TI-RADS category: Moderately suspicious Nodule number: 3 Location: Right inferior Size: 1.1 x 0.9 x 1.0 cm, not significantly changed. Composition: Solid Echogenicity: Isoechoic Shape: Wider than tall Margins: Smooth Echogenic foci: None Total points: 3 ACR TI-RADS category: Mildly suspicious Nodule number: 4 Location: Right inferior Size: 0.7 x 0.5 x 0.5 cm, not significantly changed Composition: Solid Echogenicity: Isoechoic Shape: Wider than tall Margins: Smooth Echogenic foci: None Total points: 3 ACR TI-RADS category: Mildly suspicious Additional 0.4 x 0.4 x 0.4 cm hypoechoic lesion is seen posterior to the right thyroid lobe, which is unchanged in size again may represent a parathyroid gland. The previously seen adjacent 0.7 cm nodule posterior to the left thyroid is not visualized on this exam. IMPRESSION: Stable appearance of small bilateral thyroid nodules. Given size and imaging characteristics, no further imaging follow-up is recommended based on guidelines provided below. Of note, dehydrogenation converter helper errors are noted on the prior ultrasound report involving the reported nodule measurements. ACR TI-RADS definitions and recommendations: TI-RADS 1 (benign): 0 points. FNA not needed. TI-RADS 2 (not suspicious): 2 points. FNA not needed. TI-RADS 3 (mildly suspicious): 3 points. * FNA if 2.5 cm or larger, follow up if 1.5 cm or larger (at 1, 3, and 5 years). TI-RADS 4 (moderately suspicious): 4-6 points. * FNA if 1.5 cm or larger, follow up if 1 cm or larger (at 1, 2, 3, and 5 years). TI-RADS 5 (highly suspicious): 7 points or more. * FNA if 1 cm or larger, follow up if 0.5 cm or larger (every year for 5 years). Approved by: Van Alba M.D. on 05/17/2022 at 15:47
== END ==
PROVIDERS: Family Provider Psychiatry & Neurology Neurology; PCP Family Medicine; Referring Provider Internal Medicine Hematology & Oncology; Visit Provider Internal Medicine Hematology & Oncology
DX: D45 Polycythemia vera (principal); R49.0 Dysphonia; I10 Essential (primary) hypertension; E04.2 Nontoxic multinodular goiter
CPT/HCPCS: 71046; 76536

== ENCOUNTER → 2022-07-09 12:03 | Outpatient (CLI) | payer MEDICARE, OTHER, SELFPAY ==
--- NOTE | 2022-07-09 12:06 | DI.RAD.S_ITS ---
PROCEDURE: XR HIP W PEL IF DONE LT 2V COMPARISON: [facility], CR, XR HIP W PEL IF DONE RT 2V, 04/17/2020, 17:21. [facility], CR, XR HIP W PEL IF DONE [place] 3TO4V, 10/26/2018, 14:57. INDICATIONS: LOW BACK PAIN FINDINGS: There is no evidence of trauma and only minimal degenerative change is seen at each hip. At the low lumbosacral spine there is also mild degenerative disc disease but no trauma found in the limited area visualized. IMPRESSION: No acute disease, source of reported low back pain is not identified by this study. Minimal bilateral hip joint degenerative narrowing. No prior trauma found. Dictated by: Sohan Hussein M.D. on 07/09/2022 at 13:35 Approved by: Sohan Hussein M.D. on 07/09/2022 at 13:35
--- NOTE | 2022-07-09 12:07 | DI.RAD.S_ITS ---
PROCEDURE: XR LUMBAR SPINE 2-3V INDICATIONS: LOW BACK PAIN TECHNIQUE: 3 views of the lumbar spine were acquired. COMPARISON: [facility], , XR LUMBAR SPINE 2-3V, 04/17/2020, 17:21. FINDINGS: Bones: 5 [id number] vertebrae are present. There is mild dextrocurvature of the lumbar spine centered at L3. Moderate multilevel lumbar spondylosis with degenerative endplate changes, disc space loss, and endplate osteophyte formation. Findings are most pronounced at L2-3. No acute vertebral body compression fractures. No suspicious bony lesions. Soft tissues: Overlying bowel gas pattern is normal. No suspicious soft tissue calcifications. IMPRESSION: Lumbar spine without acute fracture . Multilevel lumbar spondylosis most severe at L2-3. Mild dextroscoliosis. Dictated by: Torsten Moore M.D. on 07/09/2022 at 15:00 Approved by: Torsten Moore M.D. on 07/09/2022 at 15:02
[2022-07-09 13:26] LABS: Add Manual Diff / Slide Review NO; Basophils Absolute Auto 0 /uL (0-100); Basophils Percent Auto 0.5 % (0-2); Eosinophils Absolute Auto 100 /uL (0-450); Eosinophils Percent Auto 3.2 % (2-4); Hematocrit 28.6 % (36-46); Hemoglobin 9.5 g/dL (12.0-16.0); Lymphocytes Absolute Auto 1300 /uL (1100-4500); Lymphocytes Percent Auto 31.5 % (25-40); Mean Corpuscular HGB Conc 33.3 % (30-36); Mean Corpuscular Hemoglobin 29.1 PG (26-34); Mean Corpuscular Volume 87.3 fL (80-100); Monocytes Absolute Auto 300 /uL (0-900); Monocytes Percent Auto 7.7 % (3-14); Neutrophils Absolute Auto 2400 /uL (1500-7000); Neutrophils Percent Auto 57.1 % (50-75); Platelet Count 255 X10^3/uL (150-400); Red Blood Cell Count 3.28 X10^6/uL (4.0-5.2); Red Cell Distribution Width 19.1 % (11.6-14.8); White Blood Cell Count 4.2 X10^3/uL (4.5-11.0)
[2022-07-09 13:40] LABS: Alanine Aminotransferase 30 IU/L (<35); Albumin 4.5 g/dL (3.5-5.0); Albumin Globulin Ratio 1.5 (1.0-2.8); Alkaline Phosphatase 59 U/L (38-126); Aspartate Aminotransferase 34 IU/L (14-36); BUN Creatinine Ratio 12.3 (6-22); Bilirubin Total 0.5 mg/dL (0.2-1.3); Blood Urea Nitrogen 13 mg/dL (7-17); Carbon Dioxide 26 mmol/L (22-32); Chloride 99 mmol/L (98-107); Estimated Glomerular Filt Rate 55 mL/min (>60); Globulin 3.1 g/dL (1.7-4.1); Glucose 98 mg/dL (80-110); HEMOLYSIS < 15 (0-50); Potassium 4.1 mmol/L (3.4-5.1); Sodium 134 mmol/L (137-145); Total Protein 7.6 g/dL (6.3-8.2)
[2022-07-09 13:42] LABS: Cholesterol 263 mg/dL (140-199); HDL Cholesterol 67 mg/dL (40-60); LDL Cholesterol Calculated 172 mg/dL (<100); Magnesium 2.1 mg/dL (1.6-2.3); Triglycerides 118 mg/dL (35-150)
[2022-07-09 13:56] LABS: Free T4, Direct Thyroxine 0.89 ng/dL (0.78-2.19)
[2022-07-09 14:10] LABS: Thyroid Stimulating Hormone 1.53 uIU/mL (0.47-4.68)
[2022-07-09 14:31] LABS: Vitamin B12 685 pg/mL (239-931)
[2022-07-09 16:17] LABS: Vitamin D 25 Hydroxy (D3) 56.2 ng/mL (30.0-100.0)
[2022-07-11 07:08] LABS: Triiodothyronine T3 Total 88 ng/dL (71-180)
== END ==
PROVIDERS: Internal Medicine Hematology & Oncology; Family Provider Psychiatry & Neurology Neurology; PCP Family Medicine; Referring Provider Family Medicine; Visit Provider Family Medicine
DX: M47.816 Spondylosis without myelopathy or radiculopathy, lumbar region (principal); M41.9 Scoliosis, unspecified; M54.50 Low back pain, unspecified; G35 Multiple sclerosis; D50.9 Iron deficiency anemia, unspecified; D45 Polycythemia vera; I10 Essential (primary) hypertension; R00.2 Palpitations; R49.0 Dysphonia
CPT/HCPCS: 36415; 72100; 73502; 80053; 80061; 82306; 82607; 83735; 84439; 84443; 84480; 85025

== ENCOUNTER → 2022-10-11 06:54 | Outpatient (CLI) | payer MEDICARE, OTHER, SELFPAY ==
--- NOTE | 2022-10-11 06:56 | DI.US.S_ITS ---
PROCEDURE: US ABDOMEN LIMITED INDICATIONS: PV with splenomegaly TECHNIQUE: Real-time focused scanning was performed of the abdomen, with image documentation. COMPARISON: [facility], , US ABDOMEN LIMITED, 07/14/2020, 12:24. FINDINGS: The liver measures 14 cm. Echogenicity slightly increased. CBD measures 4 mm. The spleen measures 12 x 12 x 8 cm, at the upper limit of normal. Previous spleen size was 17 x 7 x 6 cm. Patent hepatopetal portal venous flow. IMPRESSION: Spleen size is at the upper limit of normal measuring 12 x 12 x 8 cm. Prior size was 17 x 7 x 6 cm. Portal venous flow is normal. Dictated by: Mj Saldivar M.D. on 10/11/2022 at 8:56 Approved by: Mj Saldivar M.D. on 10/11/2022 at 8:58
== END ==
PROVIDERS: Family Provider Psychiatry & Neurology Neurology; PCP Family Medicine; Referring Provider Internal Medicine Hematology & Oncology; Visit Provider Internal Medicine Hematology & Oncology
DX: D45 Polycythemia vera (principal); R16.1 Splenomegaly, not elsewhere classified
CPT/HCPCS: 76705; 93975; 93976

== ENCOUNTER → 2022-11-23 11:12 | Outpatient (CLI) | payer MEDICARE, OTHER, SELFPAY ==
[2022-11-23 11:58] LABS: Add Manual Diff / Slide Review NO; Basophils Absolute Auto 0 /uL (0-100); Basophils Percent Auto 0.6 % (0-2); Eosinophils Absolute Auto 100 /uL (0-450); Eosinophils Percent Auto 3.5 % (2-4); Hematocrit 30.9 % (36-46); Hemoglobin 10.5 g/dL (12.0-16.0); Lymphocytes Absolute Auto 1400 /uL (1100-4500); Lymphocytes Percent Auto 35.2 % (25-40); Mean Corpuscular HGB Conc 33.8 % (30-36); Mean Corpuscular Hemoglobin 29.6 PG (26-34); Mean Corpuscular Volume 87.6 fL (80-100); Monocytes Absolute Auto 300 /uL (0-900); Monocytes Percent Auto 8.7 % (3-14); Neutrophils Absolute Auto 2000 /uL (1500-7000); Platelet Count 253 X10^3/uL (150-400); Red Blood Cell Count 3.53 X10^6/uL (4.0-5.2); White Blood Cell Count 3.9 X10^3/uL (4.5-11.0)
[2022-11-23 12:20] LABS: Alanine Aminotransferase 27 IU/L (<35); Albumin 4.3 g/dL (3.5-5.0); Albumin Globulin Ratio 1.5 (1.0-2.8); Alkaline Phosphatase 55 U/L (38-126); Aspartate Aminotransferase 30 IU/L (14-36); Bilirubin Total 0.4 mg/dL (0.2-1.3); Blood Urea Nitrogen 14 mg/dL (7-17); Calcium 9.4 mg/dL (8.4-10.2); Carbon Dioxide 28 mmol/L (22-32); Chloride 103 mmol/L (98-107); Cholesterol 264 mg/dL (140-199); Estimated Glomerular Filt Rate 49 mL/min (>60); Globulin 2.8 g/dL (1.7-4.1); Glucose 99 mg/dL (80-110); HDL Cholesterol 67 mg/dL (40-60); HEMOLYSIS < 15 (0-50); LDL Cholesterol Calculated 172 mg/dL (<100); Potassium 4.5 mmol/L (3.4-5.1); Sodium 137 mmol/L (137-145); Total Protein 7.1 g/dL (6.3-8.2); Triglycerides 124 mg/dL (35-150)
[2022-11-23 12:30] LABS: Vitamin D 25 Hydroxy (D3) 53.5 ng/mL (30.0-100.0)
[2022-11-23 12:43] LABS: Thyroid Stimulating Hormone 0.895 uIU/mL (0.47-4.68)
[2022-11-23 13:05] LABS: Vitamin B12 767 pg/mL (239-931)
== END ==
PROVIDERS: Family Provider Psychiatry & Neurology Neurology; PCP Family Medicine; Referring Provider Family Medicine; Visit Provider Family Medicine
DX: G35 Multiple sclerosis (principal); D50.9 Iron deficiency anemia, unspecified; E04.1 Nontoxic single thyroid nodule; E55.9 Vitamin D deficiency, unspecified; I10 Essential (primary) hypertension; M54.50 Low back pain, unspecified; R30.0 Dysuria
CPT/HCPCS: 36415; 80053; 80061; 82306; 82607; 84443; 85025

== ENCOUNTER → 2022-11-23 13:27 | Outpatient (CLI) | payer MEDICARE, OTHER, SELFPAY ==
--- NOTE | 2022-11-23 13:28 | DI.US.S_ITS ---
PROCEDURE: US THYROID INDICATIONS: THYROID NODULES TECHNIQUE: Real-time scanning w right thyroid as performed of the thyroid gland, with image documentation. COMPARISON: [facility], US, US THYROID, 05/17/2022, 13:28. FINDINGS: Right thyroid measures 4.4 x 1.7 x 1.7 cm. Left thyroid measures 3.7 x 1.4 x 1.5 cm. Isthmus measures 1.2 mm. Labeled Nodule 3. Right mid region measures 1.2 x 1.1 x 1.1 cm, previously 1.1 x 0.9 x 1.0 cm. Solid, isoechoic, with punctate echogenic foci. TR 4. Labeled Nodule 4.. Right inferior region measures 0.7 x 0.7 x 1.0 cm, previously 0.7 x 0.5 cm. Solid, isoechoic, with punctate echogenic foci. TR 4. Other subcentimeter lesions do not require dedicated follow-up. IMPRESSION: Continue follow-up is recommended for the above TR 4 lesions . ACR TI-RADS definitions and recommendations: TI-RADS 1 (benign): 0 points. FNA not needed. TI-RADS 2 (not suspicious): 2 points. FNA not needed. TI-RADS 3 (mildly suspicious): 3 points. * FNA if 2.5 cm or larger, follow up if 1.5 cm or larger (at 1, 3, and 5 years). TI-RADS 4 (moderately suspicious): 4-6 points. * FNA if 1.5 cm or larger, follow up if 1 cm or larger (at 1, 2, 3, and 5 years). TI-RADS 5 (highly suspicious): 7 points or more. * FNA if 1 cm or larger, follow up if 0.5 cm or larger (every year for 5 years). Dictated by: Mj Saldivar M.D. on 11/23/2022 at 16:40 Approved by: Mj Saldivar M.D. on 11/23/2022 at 16:42
== END ==
PROVIDERS: Family Provider Psychiatry & Neurology Neurology; PCP Family Medicine; Referring Provider Internal Medicine Endocrinology, Diabetes & Metabolism; Visit Provider Internal Medicine Endocrinology, Diabetes & Metabolism
DX: E04.2 Nontoxic multinodular goiter (principal); G35 Multiple sclerosis; D50.9 Iron deficiency anemia, unspecified; E55.9 Vitamin D deficiency, unspecified; I10 Essential (primary) hypertension; M54.50 Low back pain, unspecified; R30.0 Dysuria
CPT/HCPCS: 36415; 76536; 80053; 80061; 82306; 82607; 84443; 85025

== ENCOUNTER 2023-01-08 13:43 | Emergency (ER) | payer MEDICARE, OTHER, SELFPAY ==
[2023-01-08 14:00] VITALS: BP 130/71; PULSE 72; RESP 18; TEMP 37; O2SAT 97; BMI 26.9
--- NOTE | 2023-01-08 14:21 | ED.EXTPRO ---
HPI - Extremity Problem <Ally Latham, [facility] - Last Filed: 01/08/23 17:01> General Chief complaint: Extremity Problem,Nontraumatic Stated complaint: L/ leg pain/swelling Time Seen by Provider: 01/08/23 14:21 Source: patient Mode of arrival: Ambulatory History of Present Illness HPI Narrative: This is a 77-year-old female with history of polycythemia vera who presents to the emergency department with sudden onset of left leg pain with concern for a DVT. No prior history of DVT, no recent injury. She is currently being treated with Macrobid for UTI. Her primary care provider is Dr. Mendoza. States that her symptoms from a urinary tract infection have improved but she is had ongoing shooting pains in her left leg, endorses bilateral sciatica from injury years ago where she fell off a horse. She denies any history of blood clots but was concerned because she had knee pain that started last night and states it is going up and down her leg from her knee. She endorses shooting pains from her hip down to her knee and thinks that these pains are related. She denies nausea, vomiting, fever chills, denies any midline back pain, denies urinary retention or incontinence that is new, denies any groin paresthesia, denies weakness in her legs, denies any excessive physical exertion over last few days. She is not anticoagulated but takes a baby aspirin daily. Related Data Home Medications Medication Instructions Recorded Confirmed aspirin 81 mg tablet,delayed 81 mg PO DAILY ##0 11/13/12 07/12/22 release escitalopram oxalate 20 mg tablet 30 mg PO DAILY ##0 11/13/12 07/12/22 (Lexapro) fexofenadine 180 mg tablet 180 mg PO DAILY ##0 11/13/12 07/12/22 fluticasone 250 mcg-salmeterol 50 1 puff INH BID ##0 11/13/12 07/12/22 mcg/dose blistr powdr for inhalation (Advair Diskus) tolterodine 4 mg capsule,extended 4 mg PO DAILY ##0 11/13/12 07/12/22 release 24 hr (Detrol LA) dexlansoprazole 60 mg 60 mg PO DAILY 10/07/17 07/12/22 capsule,biphase delayed release (Dexilant) linaclotide 145 mcg capsule 145 mcg PO BEDTIME 10/26/18 07/12/22 naratriptan 2.5 mg tablet 2.5 mg PO DAILY PRN Migraine 10/26/18 07/12/22 Headache fluticasone 250 mcg-salmeterol 50 1 inh inhalation BID 01/28/20 07/12/22 mcg/dose blistr powdr for inhalation (Advair Diskus) montelukast 10 mg tablet 10 mg PO DAILY 01/28/20 07/12/22 allopurinol 300 mg tablet 300 mg PO DAILY 11/05/21 07/12/22 Previous Rx's Medication Instructions Recorded ruxolitinib 10 mg tablet (Jakafi) 10 mg PO BID #60 tabs 06/28/22 estradiol 10 mcg vaginal tablet 10 mcg vaginal 2XW #8 tabs 12/24/22 (Yuvafem) gabapentin 100 mg capsule 100 mg PO BEDTIME PRN 01/08/23 sciatica/pain #20 caps hydrocodone 5 mg-acetaminophen 325 1 tab PO Q6H PRN pain #10 tabs 01/08/23 mg tablet lidocaine 5 % topical patch 1 patch topical Q12HR PRN pain #30 01/08/23 ea prednisone 20 mg tablet 20 mg PO DAILY 5 days #5 tabs 01/08/23 Allergies Allergy/AdvReac Type Severity Reaction Status Date / Time indomethacin [INDOMETHACIN] Allergy Severe DIFFICULTY Verified 07/04/20 16:31 BREATHING orphenadrine [ORPHENADRINE] Allergy Severe DIFFICULTY Verified 07/04/20 16:31 BREATHING brompheniramine Allergy Unknown Verified 07/04/20 16:31 [BROMPHENIRAMINE] chlorpheniramine Allergy Unknown Verified 07/04/20 16:31 [CHLORPHENIRAMINE] dextromethorphan Allergy Unknown TIGHT CHEST Verified 07/04/20 16:31 [DEXTROMETHORPHAN] lidocaine [LIDOCAINE] Allergy Unknown W/EPI-SHAKE Verified 07/04/20 16:31 S Penicillins [PENICILLINS] Allergy Unknown Verified 07/04/20 16:31 phenylephrine [PHENYLEPHRINE] Allergy Unknown Verified 07/04/20 16:31 phenylpropanolamine Allergy Unknown Verified 07/04/20 16:31 [PHENYLPROPANOLAMINE] pseudoephedrine Allergy Unknown TIGHT CHEST Verified 07/04/20 16:31 [PSEUDOEPHEDRINE] Sulfa (Sulfonamide Allergy Unknown Verified 07/04/20 16:31 Antibiotics) [SULFA (SULFONAMIDE ANTIBIOTICS)] erythromycin base AdvReac Unknown UPSET Verified 07/04/20 16:31 [From ERYTHROCIN] STOMACH Review of Systems <CATHI Burrell - Last Filed: 01/08/23 17:01> Review of Systems ROS Unobtainable: All systems reviewed & are unremarkable except as noted in HPI and below Patient History <CATHI Burrell - Last Filed: 01/08/23 17:01> Medical History Chronic fatigue Chronic headaches Esophageal stricture Hyperuricemia Polycythemia vera Renal insufficiency Surgical History History of hand surgery Hx of brain surgery Hx of breast biopsy Hx of knee surgery Family History Father Diabetes mellitus Heart disease Sister Age: 80 Cancer Breast cancer Mother Gallstones Breast cancer Brother Cancer Social History marital status: unknown household members: family occupational status: previously employed Smoking Status: Former smoker alcohol intake: never substance use type: does not use Smoking Status: Former smoker alcohol intake frequency: a few times a week Substance Use Type: does not use Exam <CATHI Burrell - Last Filed: 01/08/23 17:01> Narrative Exam Narrative: Reviewed vitals signs and nursing notes. General: Pleasant, sitting upright in chair, in no acute distress, well groomed, afebrile HEENT: symmetrical facial expressions, moist mucous membranes, neck is supple CV: regular rate and rhythm, warm extremities Respiratory: normal work of breathing, without tachypnea or hypoxia. GI: abdomen soft, nondistended, without CVA tenderness bilaterally. MSK: moves all extremities, no weakness, normal tone, ambulatory without deficit, no vertebral point tenderness along her spine, she has bilateral sciatica which goes into her hips but states that the left side she down into her knee below her knee and is exacerbated by position changes which happened approximately a dozen times while as in the room. Her reflexes are intact without weakness, no groin paresthesia, no sensation deficit, she complained of some mild calf tenderness to palpation but otherwise no circumferential edema, no discoloration to her lower leg, Skin: brisk capillary refill, without rash or wound Neuro: clear speech and normal cognition, A&O x3, GCS 15, no focal motor or sensation deficits Initial Vital Signs Initial Vital Signs: Vital Signs Temperature 98.6 F 01/08/23 14:00 Pulse Rate 72 01/08/23 14:00 Respiratory Rate 18 01/08/23 14:00 Blood Pressure 130/71 01/08/23 14:00 Pulse Oximetry 97 01/08/23 14:00 Oxygen Delivery Method Room Air 01/08/23 14:00 <Chivo Izaguirre DO - Last Filed: 01/09/23 09:57> Initial Vital Signs Initial Vital Signs: Vital Signs Temperature 98.6 F 01/08/23 14:00 Pulse Rate 72 01/08/23 14:00 Respiratory Rate 18 01/08/23 14:00 Blood Pressure 130/71 01/08/23 14:00 Pulse Oximetry 97 01/08/23 14:00 Oxygen Delivery Method Room Air 01/08/23 14:00 Scores <CATHI Burrell - Last Filed: 01/08/23 17:01> Keily Criteria for DVT Active Cancer (Treatment within 6 months): No Bedridden recently >3 days or major surgery within 4 weeks: No Calf Swelling >3cm compared to other leg: No Collateral (nonvericose) superficial veins present: No Entire leg swollen: No Localized tenderness along the deep vein system: No Pitting edema, confined to symtomatic leg: No Paralysis, paresis, or recent plaster immobilization of ext: No Previously documented DVT: No Alternative dx to DVT as likely or more likely: No Keily criteria for DVT: 0 <DO Raf Mcmillan Last Filed: 01/09/23 09:57> Keily Criteria for DVT Luis Angel' criteria for DVT: 0 Course <CATHI Burrell - Last Filed: 01/08/23 17:01> Orders Ordered: Discontinued Medications Hydrocodone Bitart/Acetaminophen (Hydrocodone/Acet 5/325 Tablet) 1 tab PO NOW ONE Stop: 01/08/23 15:48 Last Admin: 01/08/23 16:03 Dose: 1 tab Documented By: JOHN Lidocaine (Lidocaine Patch 1 Each Adh..Patch) 1 each TOP NOW ONE Stop: 01/08/23 15:48 Last Admin: 01/08/23 16:03 Dose: 1 each Documented By: JOHN Prednisone (Prednisone 20 Mg Tablet) 40 mg PO NOW ONE Stop: 01/08/23 15:48 Last Admin: 01/08/23 16:03 Dose: 40 mg Documented By: JOHN Vital Signs Vital signs: Vital Signs - 8 hr 01/08/23 14:00 Temperature 98.6 F Pulse Rate 72 Respiratory Rate 18 Blood Pressure 130/71 Pulse Oximetry 97 Oxygen Delivery Method Room Air <Chivo Izaguirre DO - Last Filed: 01/09/23 09:57> Orders Ordered: Discontinued Medications Hydrocodone Bitart/Acetaminophen (Hydrocodone/Acet 5/325 Tablet) 1 tab PO NOW ONE Stop: 01/08/23 15:48 Last Admin: 01/08/23 16:03 Dose: 1 tab Documented By: JOHN Lidocaine (Lidocaine Patch 1 Each Adh..Patch) 1 each TOP NOW ONE Stop: 01/08/23 15:48 Last Admin: 01/08/23 16:03 Dose: 1 each Documented By: JOHN Prednisone (Prednisone 20 Mg Tablet) 40 mg PO NOW ONE Stop: 01/08/23 15:48 Last Admin: 01/08/23 16:03 Dose: 40 mg Documented By: JOHN Vital Signs Vital signs: Vital Signs - 8 hr 01/08/23 14:00 Temperature 98.6 F Pulse Rate 72 Respiratory Rate 18 Blood Pressure 130/71 Pulse Oximetry 97 Oxygen Delivery Method Room Air MDM - Extremity (Nontraumatic) <CATHI Burrell - Last Filed: 01/08/23 17:01> Lab Data 01/08/23 14:35 Labs: Lab Results 01/08/23 01/08/23 Range/Units 14:35 14:35 WBC 6.0 (4.5-11.0) X10^3/uL RBC 3.52 L (4.0-5.2) X10^6/uL Hgb 10.6 L (12.0-16.0) g/dL Hct 31.4 L (36-46) % MCV 89.3 (80-100) fL MCH 30.1 (26-34) PG MCHC 33.7 (30-36) % RDW 17.9 H (11.6-14.8) % Plt Count 276 (150-400) X10^3/uL Neut % (Auto) 61.5 (50-75) % Lymph % (Auto) 26.2 (25-40) % Webster % (Auto) 9.0 (3-14) % Eos % (Auto) 2.7 (2-4) % Baso % (Auto) 0.6 (0-2) % Neut # (Auto) 3700 (8975-6955) /uL Lymph # (Auto) 1600 (4095-0576) /uL Webster # (Auto) 500 (0-900) /uL Eos # (Auto) 200 (0-450) /uL Baso # (Auto) 0 (0-100) /uL D-Dimer 730 H (<500) ng/ml Imaging Data Extremity x-ray #1: Radiologist's Impression: [address] [id number] XRay Report Signed Patient: Margo Conroy MR#: [id number] : 1945 Acct:[id number] Age/Sex: 77 / F Date of Service: 01/08/23 Loc: ED Accession Number: [id number] ?? Procedure: XR knee LT 3V Ordering Provider: Ally Latham PROCEDURE:? XR KNEE LT 3V ? INDICATIONS:? knee pain ? TECHNIQUE:? 3 views of the knee were acquired.? ? COMPARISON:? [facility], MR, MR KNEE LT WO CON, 12/14/2017, 15:17.? [facility], CR, XR KNEE 4+ VIEWS BILATERAL, 08/29/2017, 15:13.? [facility], CR, KNEE 3V RIGHT, 09/07/2007, 11:01. ? FINDINGS:? ? Bones:? No fractures or dislocations.? No suspicious bony lesions.? ? There is mild medial femorotibial joint space narrowing seen, with associated remodeling changes including subchondral sclerosis and osteophyte formation along the jointline.? On the sunrise view, there is mild patellofemoral joint space narrowing seen. Osteophyte formation can be seen along the margins of the patella. ? Soft tissues:? There is a small joint effusion.? No suspicious soft tissue calcifications.? ? ? IMPRESSION:? Small joint effusion. ? Generalized osteoarthritic degenerative changes are seen.? ? If it would be helpful for clinical management decision making, please consider a dedicated, scheduled knee MRI for further evaluation (assuming that there is no contraindication).? ? ? Dictated by: Hang Burgos M.D. on 01/08/2023 at 15:22 ? ? Approved by: Hang Burgos M.D. on 01/08/2023 at 15:24 ? lumbar spine XR: Radiologist's Impression: [address] [address] XRay Report Signed Patient: Margo Conroy MR#: [id number] : 1945 Acct:[id number] Age/Sex: 77 / F Date of Service: 01/08/23 Loc: ED Accession Number: [id number] ?? Procedure: XR lumbar spine 2-3V Ordering Provider: Ally Latham PROCEDURE:? XR LUMBAR SPINE 2-3V ? INDICATIONS:? atraumatic bilateral sciatica ? TECHNIQUE:? 3 views of the lumbar spine were acquired.? ? COMPARISON:? [facility], CR, XR LUMBAR SPINE 2-3V, 04/17/2020, 17:21.? [facility], CR, XR KNEE LT 3V, 01/08/2023, 15:21.? [facility], CR, XR LUMBAR SPINE 2-3V, 07/09/2022, 12:31. ? FINDINGS:? ? Bones:? Mild dextroconvex scoliotic curvature is seen.? There is minimal retrolisthesis seen at L1-L2, with mild retrolisthesis at L2-L3.? Minimal retrolisthesis is seen at L3-L4.? ? 5 [id number] vertebrae are present.? No vertebral body compression fractures.? No suspicious bony lesions.? ? There is moderate to severe disc space narrowing seen at L2-L3 and at L5-S1, with moderate disc space narrowing elsewhere.? Endplate irregularity and sclerosis are seen, which are worst at the L2-L3 level. Lower lumbar spine facet arthropathy is seen.? ? Soft tissues:? Overlying bowel gas pattern is normal.? No suspicious soft tissue calcifications.? Right breast clips are seen. ? ? IMPRESSION:? Dextroconvex scoliosis with multiple levels of degenerative change.? The degenerative changes are worse at L2-L3 and L5-S1. ? If it would be helpful for clinical management decision making, please consider a dedicated, scheduled lumbar spine MRI for further evaluation (assuming that there is no contraindication).? ? ? Dictated by: Hang Burgos M.D. on 01/08/2023 at 15:24 ? ? Approved by: Hang Burgos M.D. on 01/08/2023 at 15:26 ? MDM Narrative Medical decision making narrative: Chief Complaint: leg swelling/pain Multiple etiologies for patient's complaint considered including, but not limited to: DVT, venous stasis, peripheral venous insufficiency, cellulitis I have independently reviewed the patient's vital signs and nursing notes as well as prior records if available. Plan: Wells DVT score 0, canceled DVT ultrasound as patient does not have circumferential edema, no signs of a blood clot, good perfusion bilateral lower extremities, she is complaining of pain to the anterior of her knee and states it shoots from her left hip with position changes. Lumbar spine x-ray and left knee x-ray obtained to evaluate for knee effusion, pathologic fracture, osteoarthritis and degenerative disc and joint disease. Patient's D-dimer came back at 730, the age adjustment for D-dimer for the patient cut off is 750, no indication to use ultrasound for DVT time. Patient has a left knee effusion on x-ray, lumbar spine x-ray shows degenerative changes especially between L2 and L3 and L5 and S1, patient describes symptoms of sciatica coming down her left leg. She was treated today with prednisone, lidocaine patch, pain pill. Given a prescription lidocaine patches, prednisone, gabapentin for her symptoms and encouraged to follow-up with her primary care provider for referral to physical therapy, she may choose to follow-up with orthopedics to the right knee effusion, this related to arthralgia as she is atraumatic and does not have any point tenderness. Social considerations that may affect disposition: none Questions are addressed and there is agreement with the plan and for follow-up. I consulted with the ED attending physician Dr. Izaguirre as needed for higher level of care considerations and they were available for discussion and recommendations regarding plan of care and diagnostic testing. Patient is appropriate for outpatient management. <Chivo Izaguirre DO - Last Filed: 01/09/23 09:57> Lab Data Labs: Lab Results 01/08/23 01/08/23 Range/Units 14:35 14:35 WBC 6.0 (4.5-11.0) X10^3/uL RBC 3.52 L (4.0-5.2) X10^6/uL Hgb 10.6 L (12.0-16.0) g/dL Hct 31.4 L (36-46) % MCV 89.3 (80-100) fL MCH 30.1 (26-34) PG MCHC 33.7 (30-36) % RDW 17.9 H (11.6-14.8) % Plt Count 276 (150-400) X10^3/uL Neut % (Auto) 61.5 (50-75) % Lymph % (Auto) 26.2 (25-40) % Webster % (Auto) 9.0 (3-14) % Eos % (Auto) 2.7 (2-4) % Baso % (Auto) 0.6 (0-2) % Neut # (Auto) 3700 (1368-6131) /uL Lymph # (Auto) 1600 (6729-9998) /uL Webster # (Auto) 500 (0-900) /uL Eos # (Auto) 200 (0-450) /uL Baso # (Auto) 0 (0-100) /uL D-Dimer 730 H (<500) ng/ml Discharge Plan Departure Patient Disposition: Home Clinical Impression: Acute lumbar radiculopathy, Retrolisthesis of vertebrae, Effusion of left knee joint Degenerative disk disease Qualifiers: Spinal region: lumbar Qualified Code(s): M51.36 - Other intervertebral disc degeneration, lumbar region Scoliosis Qualifiers: Scoliosis type: unspecified scoliosis Spinal region: lumbar Qualified Code(s): M41.9 - Scoliosis, unspecified Instructions: Degenerative Disc Disease, DI for Knee Effusion, Lumbar Radiculopathy Activity Restrictions/Additional Instructions: *You have been diagnosed with no blood clot in your lower legs, I think you have sciatica going down your leg and both sides from your lower lumbar spine. This causes the nerve pain which is given you the restless night. I have given you gabapentin to take at bedtime because it makes her sleepy and this will help with the nerve pain. For daytime pain, please use the hydrocodone if you are not driving, take prednisone starting tomorrow 20 mg daily with food and water to help decrease inflammation. Use a lidocaine patch over your low back at the top of the buttock crease to help calm down this nerve. I hope you start feeling better soon, ask your primary care provider for referral to physical therapy, if you have ongoing pain after today and this does not get any better, you may follow-up with orthopedics by calling and schedule an appointment. Please follow-up with your primary care provider about your sciatica first. You may get a referral to Orthopedics but physical therapy is the best place to start after your flare has calmed down. You have mild scoliosis, and degenerative changes of your lumbar spine worse between L2-L3 and L5-S1. X-ray of the left knee shows a mild joint effusion, this could be due to arthritis, degenerative changes and physical activity. Please ice this, elevate it, try these medications and follow-up with your primary care provider for referral to physical therapy. If you can tolerate ibuprofen, please take that with food and water in addition to these medications. Please use the Pranav bandage for your left knee, this helps with support and compression. Please schedule follow-up at [facility] if you have ongoing knee pain and swelling, they have received a copy of your note today. *What to do: *Please continue to take your regular medications as directed. [x ] New medication prescriptions sent to your pharmacy: [[facility] [place] ] [ ] New medication written as a paper prescription [ ] No new medications given Please call and schedule follow up with your primary care provider in 2-3 days, at least for an update. Let them know you were seen in the Emergency Department for the above problem. We will electronically transmit a record of today's note if your PCP or specialist is in our system. *If you do not have a primary care provider please contact [phone] to establish care with one of the [facility] primary care providers. *Return to the Emergency Department for worsening symptoms, inability to keep liquids down, fever greater than 101F, chills, or other concerning symptom. Prescriptions: New prednisone 20 mg tablet 20 mg PO DAILY 5 Days Qty: 5 0RF lidocaine 5 % adhesive patch,medicated 1 patch topical Q12HR PRN (Reason: pain) Qty: 30 0RF Rx Instructions: leave on most painful area for up to 12 hrs hydrocodone-acetaminophen 5-325 mg tablet 1 tab PO Q6H PRN (Reason: pain) Qty: 10 0RF gabapentin 100 mg capsule 100 mg PO BEDTIME PRN (Reason: sciatica/pain) Qty: 20 0RF No Action fluticasone propion-salmeterol [Advair Diskus] 250 MCG/50 MCG blister with device 1 puff INH BID Qty: 0 tolterodine [Detrol LA] 4 MG capsule,extended release 24hr 4 mg PO DAILY Qty: 0 fexofenadine 180 MG tablet 180 mg PO DAILY Qty: 0 aspirin 81 mg Tablet,Delayed Release (Dr/Ec) 81 mg PO DAILY Qty: 0 escitalopram oxalate [Lexapro] 20 MG tablet 30 mg PO DAILY Qty: 0 estradiol [Yuvafem] 10 mcg tablet 10 mcg vaginal 2XW Qty: 8 11RF fluticasone propion-salmeterol [Advair Diskus] 250-50 mcg/dose Blister With Device 1 inh INHALATION BID montelukast 10 mg Tablet 10 mg PO DAILY allopurinol 300 mg Tablet 300 mg PO DAILY Jakafi 10 mg Tablet 10 mg PO BID Qty: 60 5RF naratriptan 2.5 mg tablet 2.5 mg PO DAILY MDD 5 mg PRN (Reason: Migraine Headache) Patient Comments: TAKE 1 TABLET BY MOUTH ONCE DAILY NEEDED YOU MAY REPEAT WITH ONE TABLET ONCE IN 24 HOURS linaclotide 145 mcg capsule 145 mcg PO BEDTIME Patient Comments: TAKE 1 CAPSULE BY MOUTH ONCE DAILY dexlansoprazole [Dexilant] 60 mg Capsule,Biphase Delayed Releas 60 mg PO DAILY Referrals: [facility] [Provider Group] Franklyn Mendoza MD [Primary Care Provider] - Stand Alone Forms: Patient Portal/API <Chivo Izaguirre DO - Last Filed: 01/09/23 09:57> Cosign ED Attending Emmanuelature Attestation: I was immediately available in the department for consultation. Documentation has been reviewed. I agree with assessment and plan.
[2023-01-08 14:41] LABS: Add Manual Diff / Slide Review NO; Basophils Absolute Auto 0 /uL (0-100); Basophils Percent Auto 0.6 % (0-2); Eosinophils Absolute Auto 200 /uL (0-450); Eosinophils Percent Auto 2.7 % (2-4); Hematocrit 31.4 % (36-46); Hemoglobin 10.6 g/dL (12.0-16.0); Lymphocytes Absolute Auto 1600 /uL (1100-4500); Lymphocytes Percent Auto 26.2 % (25-40); Mean Corpuscular HGB Conc 33.7 % (30-36); Mean Corpuscular Hemoglobin 30.1 PG (26-34); Mean Corpuscular Volume 89.3 fL (80-100); Monocytes Absolute Auto 500 /uL (0-900); Neutrophils Absolute Auto 3700 /uL (1500-7000); Neutrophils Percent Auto 61.5 % (50-75); Platelet Count 276 X10^3/uL (150-400); Red Blood Cell Count 3.52 X10^6/uL (4.0-5.2); Red Cell Distribution Width 17.9 % (11.6-14.8)
--- NOTE | 2023-01-08 15:05 | DI.RAD.S_ITS ---
PROCEDURE: XR KNEE LT 3V INDICATIONS: knee pain TECHNIQUE: 3 views of the knee were acquired. COMPARISON: [facility], MR, MR KNEE LT WO CON, 12/14/2017, 15:17. [facility], CR, XR KNEE 4+ VIEWS BILATERAL, 08/29/2017, 15:13. [facility], CR, KNEE 3V RIGHT, 09/07/2007, 11:01. FINDINGS: Bones: No fractures or dislocations. No suspicious bony lesions. There is mild medial femorotibial joint space narrowing seen, with associated remodeling changes including subchondral sclerosis and osteophyte formation along the jointline. On the sunrise view, there is mild patellofemoral joint space narrowing seen. Osteophyte formation can be seen along the margins of the patella. Soft tissues: There is a small joint effusion. No suspicious soft tissue calcifications. IMPRESSION: Small joint effusion. Generalized osteoarthritic degenerative changes are seen. If it would be helpful for clinical management decision making, please consider a dedicated, scheduled knee MRI for further evaluation (assuming that there is no contraindication). Dictated by: Hang Burgos M.D. on 01/08/2023 at 15:22 Approved by: Hang Burgos M.D. on 01/08/2023 at 15:24
--- NOTE | 2023-01-08 15:10 | DI.RAD.S_ITS ---
PROCEDURE: XR LUMBAR SPINE 2-3V INDICATIONS: atraumatic bilateral sciatica TECHNIQUE: 3 views of the lumbar spine were acquired. COMPARISON: [facility], CR, XR LUMBAR SPINE 2-3V, 04/17/2020, 17:21. [facility], CR, XR KNEE LT 3V, 01/08/2023, 15:21. [facility], CR, XR LUMBAR SPINE 2-3V, 07/09/2022, 12:31. FINDINGS: Bones: Mild dextroconvex scoliotic curvature is seen. There is minimal retrolisthesis seen at L1-L2, with mild retrolisthesis at L2-L3. Minimal retrolisthesis is seen at L3-L4. 5 [id number] vertebrae are present. No vertebral body compression fractures. No suspicious bony lesions. There is moderate to severe disc space narrowing seen at L2-L3 and at L5-S1, with moderate disc space narrowing elsewhere. Endplate irregularity and sclerosis are seen, which are worst at the L2-L3 level. Lower lumbar spine facet arthropathy is seen. Soft tissues: Overlying bowel gas pattern is normal. No suspicious soft tissue calcifications. Right breast clips are seen. IMPRESSION: Dextroconvex scoliosis with multiple levels of degenerative change. The degenerative changes are worse at L2-L3 and L5-S1. If it would be helpful for clinical management decision making, please consider a dedicated, scheduled lumbar spine MRI for further evaluation (assuming that there is no contraindication). Dictated by: Hang Burgos M.D. on 01/08/2023 at 15:24 Approved by: Hang Burgos M.D. on 01/08/2023 at 15:26
[2023-01-08 15:25] LABS: D Dimer 730 ng/ml (<500)
[2023-01-08] MEDS: LIDOCAINE PATCH 1 EACH ADH..PATCH TOP (16:03)
[2023-01-08] MEDS: predniSONE 20 MG TABLET 40 MG PO (16:03)
[2023-01-08] MEDS: HYDROCODONE/ACET 5/325 TABLET 1 TAB PO (16:03)
== END 2023-01-08 16:55 | disposition home or self-care (01) ==
PROVIDERS: Emergency Medicine; Emergency Provider Nurse Practitioner Critical Care Medicine; Family Provider Psychiatry & Neurology Neurology; PCP Family Medicine
DX: M25.462 Effusion, left knee (principal); M51.16 Intervertebral disc disorders with radiculopathy, lumbar region; M43.16 Spondylolisthesis, lumbar region; M41.9 Scoliosis, unspecified
CPT/HCPCS: 36415; 72100; 73562; 85025; 85379; 99284

== ENCOUNTER → 2023-01-19 16:39 | Outpatient (CLI) | payer MEDICARE, OTHER, SELFPAY ==
--- NOTE | 2023-01-19 | DI.MRI.S_ITS ---
PROCEDURE: MR KNEE LT WO CON INDICATIONS: PAIN IN LEFT LEG AND KNEE TECHNIQUE: Noncontrast sagittal PD fast spin echo and T2 fast spin echo with fat saturation, sagittal 3-D FLASH with fat saturation; coronal T1 spin echo and PD fast spin echo with fat saturation, and axial PD fast spin echo with fat saturation through the knee. COMPARISON: [facility], MR, MR KNEE LT WO CON, 12/14/2017, 15:17. FINDINGS: Image quality: Excellent. Menisci: Medial extrusion of the medial meniscus is present, as before. Radial tearing of the posterior horn medial meniscus at the meniscal root ligament insertion site is present, as before. There is vertically oriented linear high T2 signal intensity traversing the the medial meniscal body and posterior horn, demonstrating superior and inferior articular surface extension, indicating vertical tearing, new since the prior examination. Horizontal and amorphous high signal intensity within the inner, middle and peripheral thirds of the medial meniscal body is present, demonstrating superior and inferior articular surface extension, indicating complex tearing. Lateral meniscus is intact. Cruciate ligaments: The anterior and posterior cruciate ligaments appear intact. Medial structures: The medial collateral ligament appears intact. Visualized portions of the pes anserinus tendons appear normal. No abnormal bursal fluid. Lateral structures: The lateral collateral ligament, long and short heads of the biceps femoris tendon appear intact. The popliteus tendon appears normal. Iliotibial band appears normal. Anterior structures: The quadriceps and patellar tendons appear intact. Lateral patellar subluxation is present. There is a shallow trochlear groove. No femoral trochlear dysplasia or ventral trochlear prominence. No edema in the infrapatellar fat pad. Bones and cartilage: No bone marrow contusions or fractures. Mild tricompartmental periarticular osteophyte formation. Severe articular cartilage loss diffusely overlies the weight-bearing aspects of the medial femoral condyle and medial tibial plateau. Severe articular cartilage loss overlies the medial patellar facet and patellar apex. Joint space: There is a small knee joint effusion. No Hutchinson's cyst. Normal appearing synovial plicae are incidentally noted. IMPRESSION: 1. Tricompartmental osteoarthritis with associated articular cartilage loss. 2. Medial meniscal tearing. 3. Knee joint effusion. Dictated by: Vito Machado M.D. on 01/20/2023 at 9:58 Approved by: Vito Machado M.D. on 01/20/2023 at 10:02
--- NOTE | 2023-01-19 | DI.MRI.S_ITS ---
PROCEDURE: MR HIP LT WO CON INDICATIONS: PAIN IN LEFT LEG AND KNEE TECHNIQUE: Noncontrast coronal T1 spin echo and STIR through the bony pelvis. Coronal and axial T2 fast spin echo with fat saturation, sagittal T1 spin echo, and oblique axial T2 fast spin echo with fat saturation through the hip. COMPARISON: [facility], CR, XR HIP W PEL IF DONE LT 2V, 07/09/2022, 12:31. FINDINGS: Image quality: Excellent. Bones and joints: Bone marrow of the pelvic ring and proximal femurs show normal signal throughout. No intraosseous lesions or fractures. No avascular necrosis of the femoral heads. Disc desiccation and facet hypertrophy are seen in the included lumbar spine. Tendons and ligaments: The gluteus medius and minimus tendons demonstrate mild tendinosis. The proximal iliotibial band appears intact. The iliopsoas tendon appears intact, without adjacent bursal fluid collections. The origin of the hamstring tendon is intact at the ischial tuberosity. The direct and indirect heads of the rectus femoris muscle origin appear intact. Labrum and cartilage: There is degeneration of the acetabular labrum with superimposed tearing of the anterosuperior labrum. Partial-thickness cartilage irregularity is seen at the superior aspect of the hip. There is normal morphology of the femoral head and the acetabulum. Soft tissues: Visualized muscles demonstrate normal bulk and internal signal. Quadratus femoris muscle demonstrates no internal edema to suggest ischiofemoral impingement. The proximal sciatic neurovascular bundle appears intact. The included portions of the pelvis demonstrate no acute abnormality. Probable 1.3 cm Bartholin gland cyst with [id number] contents. IMPRESSION: 1. Mild left hip osteoarthrosis with grade 2 chondromalacia superiorly and small marginal osteophytes. 2. Labral degeneration with nondisplaced tearing at the anterosuperior labrum. 3. Mild distal gluteus medius and minimus tendinosis. 4. Degenerative changes are seen in the included lower lumbar spine. Approved by: Van Alba M.D. on 01/20/2023 at 9:49
== END ==
PROVIDERS: Family Provider Psychiatry & Neurology Neurology; PCP Family Medicine; Referring Provider Family Medicine; Visit Provider Family Medicine
DX: M16.12 Unilateral primary osteoarthritis, left hip (principal); M94.252 Chondromalacia, left hip; S73.192A Other sprain of left hip, initial encounter; M47.816 Spondylosis without myelopathy or radiculopathy, lumbar region; M17.12 Unilateral primary osteoarthritis, left knee; S83.242A Other tear of medial meniscus, current injury, left knee, initial encounter; M25.462 Effusion, left knee; M79.605 Pain in left leg; M25.562 Pain in left knee
CPT/HCPCS: 73721

== ENCOUNTER → 2023-02-17 11:26 | Outpatient (CLI) | payer MEDICARE, OTHER, SELFPAY ==
[2023-02-17 12:15] LABS: Add Manual Diff / Slide Review NO; Basophils Absolute Auto 0 /uL (0-100); Basophils Percent Auto 0.5 % (0-2); Eosinophils Absolute Auto 100 /uL (0-450); Eosinophils Percent Auto 2.6 % (2-4); Hematocrit 32.2 % (36-46); Hemoglobin 10.9 g/dL (12.0-16.0); Lymphocytes Absolute Auto 1500 /uL (1100-4500); Lymphocytes Percent Auto 26.5 % (25-40); Mean Corpuscular HGB Conc 33.6 % (30-36); Mean Corpuscular Hemoglobin 30.4 PG (26-34); Mean Corpuscular Volume 90.4 fL (80-100); Monocytes Absolute Auto 400 /uL (0-900); Monocytes Percent Auto 7.8 % (3-14); Neutrophils Absolute Auto 3500 /uL (1500-7000); Neutrophils Percent Auto 62.6 % (50-75); Platelet Count 260 X10^3/uL (150-400); Red Blood Cell Count 3.57 X10^6/uL (4.0-5.2); Red Cell Distribution Width 17.7 % (11.6-14.8); White Blood Cell Count 5.6 X10^3/uL (4.5-11.0)
[2023-02-17 12:58] LABS: Alanine Aminotransferase 29 IU/L (<35); Albumin 4.4 g/dL (3.5-5.0); Albumin Globulin Ratio 1.6 (1.0-2.8); Alkaline Phosphatase 57 U/L (38-126); Aspartate Aminotransferase 28 IU/L (14-36); BUN Creatinine Ratio 17.9 (6-22); Bilirubin Total 0.4 mg/dL (0.2-1.3); Blood Urea Nitrogen 21 mg/dL (7-17); Calcium 9.8 mg/dL (8.4-10.2); Carbon Dioxide 26 mmol/L (22-32); Chloride 104 mmol/L (98-107); Cholesterol 163 mg/dL (140-199); Estimated Glomerular Filt Rate 49 mL/min (>60); Globulin 2.7 g/dL (1.7-4.1); Glucose 99 mg/dL (80-110); HDL Cholesterol 73 mg/dL (40-60); HEMOLYSIS < 15 (0-50); LDL Cholesterol Calculated 66 mg/dL (<100); Potassium 4.4 mmol/L (3.4-5.1); Sodium 136 mmol/L (137-145); Total Protein 7.1 g/dL (6.3-8.2); Triglycerides 119 mg/dL (35-150)
[2023-02-17 13:29] LABS: Thyroid Stimulating Hormone 1.89 uIU/mL (0.47-4.68)
[2023-02-17 13:46] LABS: Vitamin B12 710 pg/mL (239-931)
== END ==
PROVIDERS: Family Provider Psychiatry & Neurology Neurology; PCP Family Medicine; Referring Provider Family Medicine; Visit Provider Family Medicine
DX: D45 Polycythemia vera (principal); I10 Essential (primary) hypertension; E04.1 Nontoxic single thyroid nodule; E55.9 Vitamin D deficiency, unspecified; D50.9 Iron deficiency anemia, unspecified; M12.89 Other specific arthropathies, not elsewhere classified, multiple sites; R00.2 Palpitations; F32.89 Other specified depressive episodes
CPT/HCPCS: 36415; 80053; 80061; 82306; 82607; 84443; 85025

== ENCOUNTER → 2023-04-05 11:50 | Outpatient (CLI) | payer MEDICARE, OTHER, SELFPAY ==
--- NOTE | 2023-04-05 | DI.MG.S_ITS ---
BILATERAL DIGITAL SCREENING MAMMOGRAM 3D/2D WITH CAD: 04/05/2023 CLINICAL: Routine screening. Family history of breast cancer. Comparison is made to exams dated: 03/29/2022 mammogram, 02/10/2021 mammogram, and 01/28/2020 mammogram - [facility]. There are scattered areas of fibroglandular density in both breasts (category b / 25%-50% glandular tissue). Current study was also evaluated with a Computer Aided Detection (CAD) system. There are benign post operative findings in the right breast. No significant masses, calcifications, or other findings are seen in either breast. There has been no significant interval change. IMPRESSION: BENIGN There is no mammographic evidence of malignancy. A 1 year screening mammogram is recommended. Based on the Tyrer Cuzick model (a risk assessment model) the patient's lifetime risk is 13.2% and her 10 year risk is 13.2%. According to the ACR, ACS, and NCCN guidelines, an annual breast MRI exam along with mammogram is recommended if the patient's lifetime risk is 20% or greater. This exam was interpreted at Station ID: [id number]. NOTE: For mammograms, a report in lay terms will be sent to the patient. Approximately 15% of breast malignancies will not be visualized mammographically. In the management of a palpable breast mass, a negative mammogram must not discourage biopsy of a clinically suspicious lesion. Electronically Signed By: Laila poon/jany:04/05/2023 16:23:41 copy to: SELENA CHRISTOPHER letter sent: Normal Exam ACR BI-RADS Category 2: Benign Finding(s) [id number]
== END ==
PROVIDERS: Family Provider Psychiatry & Neurology Neurology; PCP Family Medicine; Referring Provider Family Medicine; Visit Provider Family Medicine
DX: Z12.31 Encounter for screening mammogram for malignant neoplasm of breast (principal); Z80.3 Family history of malignant neoplasm of breast
CPT/HCPCS: 77063; 77067

== ENCOUNTER → 2023-04-28 13:09 | Outpatient (CLI) | payer MEDICARE, OTHER, SELFPAY ==
[2023-04-28 13:52] LABS: Add Manual Diff / Slide Review NO; Basophils Absolute Auto 0 /uL (0-100); Basophils Percent Auto 0.5 % (0-2); Eosinophils Absolute Auto 100 /uL (0-450); Eosinophils Percent Auto 2.9 % (2-4); Hematocrit 33.3 % (36-46); Hemoglobin 11.3 g/dL (12.0-16.0); Lymphocytes Absolute Auto 1400 /uL (1100-4500); Lymphocytes Percent Auto 27.7 % (25-40); Mean Corpuscular HGB Conc 33.9 % (30-36); Mean Corpuscular Hemoglobin 30.8 PG (26-34); Mean Corpuscular Volume 90.8 fL (80-100); Monocytes Absolute Auto 400 /uL (0-900); Monocytes Percent Auto 8.6 % (3-14); Neutrophils Absolute Auto 3000 /uL (1500-7000); Neutrophils Percent Auto 60.3 % (50-75); Platelet Count 272 X10^3/uL (150-400); Red Blood Cell Count 3.66 X10^6/uL (4.0-5.2); Red Cell Distribution Width 16.8 % (11.6-14.8)
[2023-04-28 14:09] LABS: Alanine Aminotransferase 37 IU/L (<35); Albumin 4.7 g/dL (3.5-5.0); Albumin Globulin Ratio 1.4 (1.0-2.8); Alkaline Phosphatase 59 U/L (38-126); Aspartate Aminotransferase 39 IU/L (14-36); BUN Creatinine Ratio 12.1 (6-22); Bilirubin Total 0.6 mg/dL (0.2-1.3); Blood Urea Nitrogen 16 mg/dL (7-17); Calcium 10.1 mg/dL (8.4-10.2); Carbon Dioxide 28 mmol/L (22-32); Chloride 104 mmol/L (98-107); Cholesterol 156 mg/dL (140-199); Estimated Glomerular Filt Rate 42 mL/min (>60); Globulin 3.4 g/dL (1.7-4.1); Glucose 95 mg/dL (80-110); HDL Cholesterol 87 mg/dL (40-60); HEMOLYSIS < 15 (0-50); LDL Cholesterol Calculated 52 mg/dL (<100); Magnesium 2.3 mg/dL (1.6-2.3); Potassium 4.3 mmol/L (3.4-5.1); Sodium 138 mmol/L (137-145); Total Protein 8.1 g/dL (6.3-8.2); Triglycerides 85 mg/dL (35-150)
[2023-04-28 14:42] LABS: Thyroid Stimulating Hormone 1.51 uIU/mL (0.47-4.68)
[2023-04-28 14:57] LABS: Vitamin B12 786 pg/mL (239-931)
[2023-04-28 16:11] LABS: Vitamin D 25 Hydroxy (D3) 68.9 ng/mL (30.0-100.0)
== END ==
PROVIDERS: Family Provider Psychiatry & Neurology Neurology; PCP Family Medicine; Referring Provider Family Medicine; Visit Provider Family Medicine
DX: R00.2 Palpitations (principal); I10 Essential (primary) hypertension; E55.9 Vitamin D deficiency, unspecified; D50.9 Iron deficiency anemia, unspecified; E04.1 Nontoxic single thyroid nodule; M12.89 Other specific arthropathies, not elsewhere classified, multiple sites
CPT/HCPCS: 36415; 80053; 80061; 82306; 82607; 83735; 84443; 85025

== ENCOUNTER → 2023-05-31 13:08 | Outpatient (CLI) | payer MEDICARE, OTHER, SELFPAY ==
--- NOTE | 2023-05-31 13:10 | DI.RAD.S_ITS ---
PROCEDURE: XR WRIST RT MIN 3V INDICATIONS: RIGHT WRIST PAIN TECHNIQUE: 4 views of the wrist were acquired. COMPARISON: None. FINDINGS: Bones: No fractures or dislocations. No suspicious bony lesions. Soft tissues: No suspicious soft tissue calcifications. IMPRESSION: No evidence acute bony abnormality. If clinical suspicion and/or symptoms persist, further assessment with repeat plain films, or advanced imaging (e.g., CT, MRI, or bone scan) may be helpful for further assessment. Dictated by: Matthieu Shah M.D. on 05/31/2023 at 19:15 Approved by: Matthieu Shah M.D. on 05/31/2023 at 19:16
== END ==
PROVIDERS: Family Provider Psychiatry & Neurology Neurology; PCP Family Medicine; Referring Provider Family Medicine; Visit Provider Family Medicine
DX: M25.531 Pain in right wrist (principal)
CPT/HCPCS: 73110

== ENCOUNTER → 2023-10-18 13:36 | Outpatient (CLI) | payer MEDICARE, OTHER, SELFPAY ==
--- NOTE | 2023-10-18 13:38 | DI.RAD.S_ITS ---
PROCEDURE: XR ANKLE LT MIN 3V INDICATIONS: Pain in left ankle and joints of left foot TECHNIQUE: 3 views of the ankle were acquired. COMPARISON: None. FINDINGS: Bones: No fractures or dislocations. Ankle mortise is normally aligned. No suspicious bony lesions. Soft tissues: Small tibiotalar joint effusion. Achilles tendon appears normal. IMPRESSION: No acute bony abnormality or significant effusion. No significant osteoarthritis. Dictated by: Van Zuñiga M.D. on 10/18/2023 at 15:13 Approved by: Van Zuñiga M.D. on 10/18/2023 at 15:14
== END ==
LOC: RAD 13:37
PROVIDERS: Family Provider Psychiatry & Neurology Neurology; PCP Family Medicine; Referring Provider Family Medicine; Visit Provider Family Medicine
DX: M25.572 Pain in left ankle and joints of left foot (principal); M25.472 Effusion, left ankle
CPT/HCPCS: 73610

== ENCOUNTER → 2023-12-06 12:54 | Outpatient (CLI) | payer MEDICARE, OTHER, SELFPAY ==
--- NOTE | 2023-12-06 12:57 | DI.RAD.S_ITS ---
PROCEDURE: XR CHEST 2V INDICATIONS: L HIP PAIN, SOB TECHNIQUE: 2 views of the chest were acquired. COMPARISON: [facility], CR, XR CHEST 2V, 05/17/2022, 13:47. FINDINGS: Surgical changes and devices: Right breast surgical clips. Lungs and pleura: Lungs are clear. No pleural effusions or pneumothorax. Mediastinum: Mediastinal contours are normal. Heart size is normal. Bones and chest wall: No suspicious bony abnormalities. Soft tissues appear unremarkable. IMPRESSION: No acute cardiopulmonary process. Dictated by: Bandar Pederson M.D. on 12/07/2023 at 15:50 Approved by: Bandar Pederson M.D. on 12/07/2023 at 15:51
--- NOTE | 2023-12-06 12:57 | DI.RAD.S_ITS ---
PROCEDURE: XR HIP W PEL IF DONE LT 2V INDICATIONS: L HIP PAIN, SOB TECHNIQUE: AP pelvis with lateral view(s) of the left hip(s). COMPARISON: [facility], , XR HIP W PEL IF DONE LT 2V, 07/09/2022, 12:31. FINDINGS: Bones: No fractures or dislocations. Pelvic ring appears intact. No suspicious bony lesions. Mild bilateral femoroacetabular joint space narrowing and juxta-articular osteophytosis. Degenerative changes of the lower lumbar spine with dextroconvex curvature centered at L2-L3. Soft tissues: The visualized bowel gas pattern is normal. No suspicious soft tissue calcifications. IMPRESSION: 1. No acute bony abnormality. If there is high clinical suspicion for a radiographically occult fracture, recommend cross-sectional imaging for further evaluation. 2. Mild bilateral hip osteoarthritis, symmetric, similar to prior dated July 09, 2022. Dictated by: Bandar Pederson M.D. on 12/07/2023 at 15:51 Approved by: Bandar Pederson M.D. on 12/07/2023 at 15:52
== END ==
PROVIDERS: Family Provider Psychiatry & Neurology Neurology; PCP Family Medicine; Referring Provider Family Medicine; Visit Provider Family Medicine
DX: M16.0 Bilateral primary osteoarthritis of hip (principal); M25.552 Pain in left hip; R06.02 Shortness of breath; M47.816 Spondylosis without myelopathy or radiculopathy, lumbar region
CPT/HCPCS: 71046; 73502

== ENCOUNTER → 2024-01-03 15:56 | Outpatient (CLI) | payer MEDICARE, OTHER, SELFPAY ==
--- NOTE | 2024-01-03 15:57 | DI.US.S_ITS ---
PROCEDURE: US THYROID INDICATIONS: FOLLOW UP THYROID NODULES TECHNIQUE: Real-time scanning was performed of the thyroid gland, with image documentation. COMPARISON: [facility], US, US THYROID, 11/23/2022, 13:40. FINDINGS: Thyroid: Right lobe measures 4.2 x 1.8 x 1.8 cm. Left lobe measures 3.5 x 1.7 x 1.4 cm. Isthmus is 0.2 cm thick. Echotexture is mildly heterogeneous. Nodule number: 1 Location: Right lower pole Size: 1.2 x 0.9 x 1.1 cm, previously 1.2 x 1.1 x 1.1 cm. Composition: Solid Echogenicity: Isoechoic Shape: wider than tall. Margins: Ill-defined Echogenic foci: Punctate Total points: 6 ACR TI-RADS category: Moderately suspicious Nodule number: 2 Location: Anterior right inferior Size: 0.8 x 0.7 x 0.6 cm, previously 0.7 x 1.0 x 0.7cm. Composition: Solid Echogenicity: Isoechoic Shape: wider than tall. Margins: Ill-defined Echogenic foci: Punctate Total points: 6 ACR TI-RADS category: Moderately suspicious Nodule number: 3 Location: Right neck, inferior and posterior to the thyroid Size: 0.5 x 0.4 x 0.4 cm, previously 0.3 x 0.4 x 0.4 cm. Composition: Solid Echogenicity: Hypoechoic Shape: wider than tall. Margins: Smooth Echogenic foci: No Total points: 4 ACR TI-RADS category: Moderately suspicious IMPRESSION: Multiple thyroid nodules, including 2 nodules which are 1 cm or slightly greater, in the moderately suspicious category. Based on definitions and recommendations below, 12 month follow-up thyroid ultrasound is recommended. ACR TI-RADS definitions and recommendations: TI-RADS 1 (benign): 0 points. FNA not needed. TI-RADS 2 (not suspicious): 2 points. FNA not needed. TI-RADS 3 (mildly suspicious): 3 points. * FNA if 2.5 cm or larger, follow up if 1.5 cm or larger (at 1, 3, and 5 years). TI-RADS 4 (moderately suspicious): 4-6 points. * FNA if 1.5 cm or larger, follow up if 1 cm or larger (at 1, 2, 3, and 5 years). TI-RADS 5 (highly suspicious): 7 points or more. * FNA if 1 cm or larger, follow up if 0.5 cm or larger (every year for 5 years). Dictated by: Matthieu Shah M.D. on 01/03/2024 at 16:46 Approved by: Matthieu Shah M.D. on 01/03/2024 at 17:05
== END ==
PROVIDERS: Family Provider Psychiatry & Neurology Neurology; PCP Family Medicine; Referring Provider Family Medicine; Visit Provider Family Medicine
DX: E04.2 Nontoxic multinodular goiter (principal)
CPT/HCPCS: 76536

== ENCOUNTER → 2024-04-27 11:05 | Outpatient (CLI) | payer MEDICARE, OTHER, SELFPAY ==
--- NOTE | 2024-04-27 11:08 | DI.MG.S_ITS ---
BILATERAL DIGITAL SCREENING MAMMOGRAM 3D/2D WITH CAD: 04/27/2024 CLINICAL: Routine screening. Family history of breast cancer. Comparison is made to exams dated: 04/05/2023 mammogram, 03/29/2022 mammogram, and 02/10/2021 mammogram - [facility]. There are scattered areas of fibroglandular density (category b / 25%-50% glandular tissue). Current study was also evaluated with a Computer Aided Detection (CAD) system. There are benign post operative findings in the right breast. No significant masses, calcifications, or other findings are seen in either breast. There has been no significant interval change. IMPRESSION: BENIGN There is no mammographic evidence of malignancy. A 1 year screening mammogram is recommended. Based on the Tyrer Cuzick model (a risk assessment model) the patient's lifetime risk is 12.1% and her 10 year risk is 0.0%. According to the ACR, ACS, and NCCN guidelines, an annual breast MRI exam along with mammogram is recommended if the patient's lifetime risk is 20% or greater. This exam was interpreted at Station ID: [id number]. NOTE: For mammograms, a report in lay terms will be sent to the patient. Approximately 15% of breast malignancies will not be visualized mammographically. In the management of a palpable breast mass, a negative mammogram must not discourage biopsy of a clinically suspicious lesion. Electronically Signed By: Torsten hester/jany:04/28/2024 09:03:15 copy to: SELENA CHRISTOPHER letter sent: Normal Exam ACR BI-RADS Category 2: Benign
== END ==
PROVIDERS: PCP Family Medicine; Referring Provider Family Medicine; Visit Provider Family Medicine
DX: Z12.31 Encounter for screening mammogram for malignant neoplasm of breast (principal); Z80.3 Family history of malignant neoplasm of breast
CPT/HCPCS: 77063; 77067

== ENCOUNTER → 2024-04-27 11:08 | Outpatient (CLI) | payer MEDICARE, OTHER, SELFPAY ==
--- NOTE | 2024-04-27 11:11 | DI.MRI.S_ITS ---
PROCEDURE: MR HEAD/BRAIN WO CON INDICATIONS: MEMORY LOSS,IMBALANCE,POLYCYTHEMIA VERA TECHNIQUE: Non-contrast axial T1 spin echo, axial T2 fast spin echo, sagittal and axial FLAIR, coronal T2 fast spin echo, axial gradient echo, axial diffusion and ADC through the brain. COMPARISON: [facility], CT, CT HEAD/BRAIN WO CON, 11/03/2018, 12:43. [facility], MR, MR HEAD/BRAIN WO/W CON, 06/23/2020, 13:48. [facility], MR, MR HEAD/BRAIN WO CON, 01/22/2022, 13:47. [facility], MR, MR BRAIN WITHOUT CONTRAST, 01/06/2021, 13:52. (Additional prior imaging is not available for review from the archive at the time of this dictation.) FINDINGS: Image quality: Excellent. CSF spaces: Ventricles appear symmetric in size and shape. Basal cisterns are patent. No extra-axial fluid collections. Brain: No intracranial bleeds or mass effects. There is cerebral volume loss for age. There are periventricular and deep white matter chronic small vessel ischemic changes. Brainstem appears normal. Diffusion-weighted images show no acute infarct. Normal intravascular flow voids are present. Stable focal increased FLAIR signal can be seen within the superior posterior left frontal lobe, which is similar to prior examinations. Skull and face: Calvarial bone marrow is normal in signal. Orbits are normal. Sinuses: Sinuses and mastoids are clear. IMPRESSION: Stable signal abnormality seen involving the posterior superior left frontal lobe. The appearance is nonspecific, although differential diagnosis includes remote infarct, focal white matter disease, and low-grade neoplasm. Dictated by: Hang Burgos M.D. on 04/27/2024 at 12:25 Approved by: Hang Burgos M.D. on 04/27/2024 at 12:38
== END ==
LOC: MRI 11:10
PROVIDERS: PCP Family Medicine; Referring Provider Registered Nurse; Visit Provider Registered Nurse
DX: R93.0 Abnormal findings on diagnostic imaging of skull and head, not elsewhere classified (principal); R41.3 Other amnesia; R26.89 Other abnormalities of gait and mobility; R47.89 Other speech disturbances; D45 Polycythemia vera
CPT/HCPCS: 70551

== ENCOUNTER 2024-08-30 20:35 | Emergency (ER) | payer MEDICARE, OTHER, SELFPAY ==
[2024-08-30] VITALS (12 sets, daily range): BP systolic 131–153; BP diastolic 59–72; PULSE 63–79; RESP 13–23; TEMP 36.6; O2SAT 94–99; BMI 27.4
--- NOTE | 2024-08-30 20:42 | DI.RAD.S_ITS ---
PROCEDURE: XR CHEST 1V INDICATIONS: chest pain TECHNIQUE: One view of the chest was acquired. COMPARISON: [facility], CR, XR CHEST 2V, 12/06/2023, 13:20. [facility], CR, XR CHEST 2V, 05/17/2022, 13:47. FINDINGS: Surgical changes and devices: Surgical clips project over the right breast. Lungs and pleura: Ill-defined nodularity in the right upper lung zone. Mediastinum: Mediastinal contours appear normal. Heart size is normal. Bones and chest wall: No suspicious bony lesions. Overlying soft tissues appear unremarkable. IMPRESSION: Ill-defined nodularity in the right upper lung zone. Findings could represent early infection versus a true nodule. If there are no signs of infection, consider chest CT for confirmation. Dictated by: Van Zuñiga M.D. on 08/30/2024 at 21:19 Approved by: Van Zuñiga M.D. on 08/30/2024 at 21:20
--- NOTE | 2024-08-30 20:42 | EKG_ITS ---
[facility] [address] [place] [address] Test Date: 2024-08-30 Pat Name: Margo Conroy Department: [facility] Room: Gender: Female [employer]: AURELIO : [id number] Requested By: Order Number: [id number] Reading MD: Marquez Perez MD Measurements Intervals [place] Rate: 70 P: [place]: QRS: 27 QRSD: 70 T: 36 QT: 426 QTc: 460 Interpretive Statements Sinus rhythm ST & T wave abnormality, consider anterolateral ischemia Electronically Signed On 08-30-2024 22:30:54 PDT by Marquez Perez MD
--- NOTE | 2024-08-30 20:52 | ED_ITS ---
HPI - Chest Pain General Chief Complaint: Abdominal Pain Stated Complaint: chest pain Time Seen by Provider: 08/30/24 20:48 History of Present Illness HPI narrative: 78-year-old female history of polycythemia vera, dyslipidemia, CVA, GERD, presents with epigastric pain that radiates to underneath the left breast to the back described as a little fish swimming around and poking her around to the back. This started yesterday evening at bedtime that comes and goes. She is not taking anything for it and is currently asymptomatic at this time. She reports being more fatigued this past week more than usual. Other than what is stated 14 point review of system is negative. Related Data Home Medications Medication Instructions Recorded Confirmed aspirin 81 mg tablet,delayed 81 mg PO DAILY ##0 11/13/12 07/12/22 release escitalopram oxalate 20 mg tablet 30 mg PO DAILY ##0 11/13/12 07/12/22 (Lexapro) fexofenadine 180 mg tablet 180 mg PO DAILY ##0 11/13/12 07/12/22 fluticasone 250 mcg-salmeterol 50 1 puff INH BID ##0 11/13/12 07/12/22 mcg/dose blistr powdr for inhalation (Advair Diskus) tolterodine 4 mg capsule,extended 4 mg PO DAILY ##0 11/13/12 07/12/22 release 24 hr (Detrol LA) dexlansoprazole 60 mg 60 mg PO DAILY 10/07/17 07/12/22 capsule,biphase delayed release (Dexilant) linaclotide 145 mcg capsule 145 mcg PO BEDTIME 10/26/18 07/12/22 naratriptan 2.5 mg tablet 2.5 mg PO DAILY PRN Migraine 10/26/18 07/12/22 Headache fluticasone 250 mcg-salmeterol 50 1 inh inhalation BID 01/28/20 07/12/22 mcg/dose blistr powdr for inhalation (Advair Diskus) montelukast 10 mg tablet 10 mg PO DAILY 01/28/20 07/12/22 allopurinol 300 mg tablet 300 mg PO DAILY 11/05/21 07/12/22 Previous Rx's Medication Instructions Recorded ruxolitinib 10 mg tablet (Jakafi) 10 mg PO BID #60 tabs 06/28/22 gabapentin 100 mg capsule 100 mg PO BEDTIME PRN 01/08/23 sciatica/pain #20 caps hydrocodone 5 mg-acetaminophen 325 1 tab PO Q6H PRN pain #10 tabs 01/08/23 mg tablet lidocaine 5 % topical patch 1 patch topical Q12HR PRN pain #30 01/08/23 ea estradiol 10 mcg vaginal tablet 10 mcg vaginal 2XW #8 tabs 12/28/23 (Yuvafem) doxycycline hyclate 100 mg capsule 100 mg PO BID #10 caps 08/31/24 Allergies Allergy/AdvReac Type Severity Reaction Status Date / Time indomethacin [INDOMETHACIN] Allergy Severe DIFFICULTY Verified 07/04/20 16:31 BREATHING orphenadrine [ORPHENADRINE] Allergy Severe DIFFICULTY Verified 07/04/20 16:31 BREATHING brompheniramine Allergy Unknown Verified 07/04/20 16:31 [BROMPHENIRAMINE] chlorpheniramine Allergy Unknown Verified 07/04/20 16:31 [CHLORPHENIRAMINE] dextromethorphan Allergy Unknown TIGHT CHEST Verified 07/04/20 16:31 [DEXTROMETHORPHAN] lidocaine [LIDOCAINE] Allergy Unknown W/EPI-SHAKE Verified 07/04/20 16:31 S Penicillins [PENICILLINS] Allergy Unknown Verified 07/04/20 16:31 phenylephrine [PHENYLEPHRINE] Allergy Unknown Verified 07/04/20 16:31 phenylpropanolamine Allergy Unknown Verified 07/04/20 16:31 [PHENYLPROPANOLAMINE] pseudoephedrine Allergy Unknown TIGHT CHEST Verified 07/04/20 16:31 [PSEUDOEPHEDRINE] Sulfa (Sulfonamide Allergy Unknown Verified 07/04/20 16:31 Antibiotics) [SULFA (SULFONAMIDE ANTIBIOTICS)] erythromycin base AdvReac Unknown UPSET Verified 07/04/20 16:31 [From ERYTHROCIN] STOMACH Review of Systems Review of Systems ROS Unobtainable: All systems reviewed & are unremarkable except as noted in HPI and below Patient History Medical History Chronic fatigue Chronic headaches Esophageal stricture Hyperuricemia Polycythemia vera Renal insufficiency Surgical History History of hand surgery Hx of brain surgery Hx of breast biopsy Hx of knee surgery Family History Father Diabetes mellitus Heart disease Sister Age: 82 Cancer Breast cancer Mother Gallstones Breast cancer Brother Cancer Social History marital status: unknown household members: family occupational status: previously employed alcohol intake: never substance use type: does not use alcohol intake frequency: a few times a week Exam Narrative Exam Narrative: GENERAL: [78] year old patient appears stated age. Well-developed patient, in mild distress. HEAD: Atraumatic. Normocephalic. EYES: Pupils equal round and reactive. Extraocular motions intact. No scleral icterus. No injection or drainage. ENT: Nose without bleeding, purulent drainage. Throat without erythema, tonsillar hypertrophy or exudate. Airway patent. NECK: Trachea midline. Non tender CARDIOVASCULAR: Regular rate and rhythm without murmurs, gallops, or rubs. RESPIRATORY: Clear to auscultation. Breath sounds equal bilaterally. No wheezes, rales, or rhonchi. GASTROINTESTINAL: Abdomen soft, non-tender, nondistended. EXTREMITIES: No edema or joint tenderness. BACK: Nontender without deformity or crepitance. No flank tenderness. NEURO: AOx3. SKIN: No rash or erythema of visible areas Initial Vital Signs Initial Vital Signs: Vital Signs Pulse Rate 72 08/30/24 20:47 Respiratory Rate 18 08/30/24 20:47 Blood Pressure 143/68 H 08/30/24 20:47 Pulse Oximetry 98 08/30/24 20:47 Scores HEART Score Heart Score history: Slightly Suspicious Heart Score EKG: Normal Heart Score Age: > or = 65 years old Heart Score risk factors: 1-2 risk factors Heart Score troponin: < or = to normal limit Heart Score Total: 3 Course Orders Ordered: ED Orders 08/30/24 20:42 XR chest 1V Stat EKG-12 Lead Stat 08/30/24 20:54 Complete Blood Count AUTO DIFF Stat Comprehensive Metabolic Panel Stat Lipase Stat Magnesium Stat NT-proBNP (BNP-Adult 18+) Stat PTT Partial Thromboplastin Shantanu Stat Prothrombin Time INR Stat Troponin & CK Cardiac Panel Stat 08/30/24 21:53 CT chest wo con Stat 08/30/24 23:41 EKG-12 Lead Stat 08/30/24 23:58 Trop I [Troponin I] Stat Discontinued Medications Aspirin (Aspirin Ec 325 Mg Tablet) 325 mg PO NOW ONE Stop: 08/30/24 21:16 Last Admin: 08/30/24 22:00 Dose: Not Given Documented By: ADONIS Lidocaine HCl (Lidocaine Viscous 2% 15 Ml Solution) 15 ml PO NOW ONE Stop: 08/30/24 23:43 Last Admin: 08/30/24 23:48 Dose: 15 ml Documented By: ADONIS Magnesium Hydroxide (Magnesium Hydroxide 30 Ml Udc) 30 ml PO NOW ONE Stop: 08/30/24 23:43 Last Admin: 08/30/24 23:48 Dose: 30 ml Documented By: ADONIS Vital Signs Vital signs: Vital Signs - 8 hr 08/30/24 20:47 08/30/24 20:50 08/30/24 20:59 Temperature 97.9 F Pulse Rate 72 79 67 Respiratory Rate 18 18 Blood Pressure 143/68 H 131/59 L Pulse Oximetry 98 98 98 Oxygen Delivery Method Room Air 08/30/24 20:59 08/30/24 21:00 08/30/24 21:00 Temperature Pulse Rate 68 Respiratory Rate 23 Blood Pressure 143/68 H 153/72 H Pulse Oximetry 98 Oxygen Delivery Method Room Air 08/30/24 21:30 08/30/24 21:31 08/30/24 21:31 Temperature Pulse Rate 65 64 Respiratory Rate 20 18 Blood Pressure 149/65 H Pulse Oximetry 97 97 Oxygen Delivery Method 08/30/24 22:00 08/30/24 22:01 08/30/24 22:01 Temperature Pulse Rate 63 64 Respiratory Rate 20 18 Blood Pressure 136/61 Pulse Oximetry 98 99 Oxygen Delivery Method Room Air 08/30/24 22:30 08/30/24 23:00 08/30/24 23:30 Temperature Pulse Rate 63 66 64 Respiratory Rate 13 21 16 Blood Pressure 136/60 Pulse Oximetry 95 96 94 Oxygen Delivery Method 08/30/24 23:58 08/30/24 23:58 08/31/24 00:00 Temperature Pulse Rate 63 63 Respiratory Rate 14 16 Blood Pressure 149/71 H Pulse Oximetry 96 97 Oxygen Delivery Method Room Air 08/31/24 00:00 Temperature Pulse Rate Respiratory Rate Blood Pressure 148/67 H Pulse Oximetry Oxygen Delivery Method MDM - Chest Pain Lab Data 08/30/24 20:54 08/30/24 20:54 Labs: Lab Results 08/30/24 08/30/24 Range/Units 20:54 23:58 WBC 5.3 (4.5-11.0) X10^3/uL RBC 3.65 L (4.0-5.2) X10^6/uL Hgb 11.2 L (12.0-16.0) g/dL Hct 33.4 L (36-46) % MCV 91.4 (80-100) fL MCH 30.8 (26-34) PG MCHC 33.7 (30-36) % RDW 15.6 H (11.6-14.8) % Plt Count 301 (150-400) X10^3/uL Neut % (Auto) 58.6 (50-75) % Lymph % (Auto) 28.1 (25-40) % [place] % (Auto) 9.7 (3-14) % Eos % (Auto) 3.2 (2-4) % Baso % (Auto) 0.4 (0-2) % Neut # (Auto) 3100 (8728-4656) /uL Lymph # (Auto) 1500 (4258-9815) /uL [place] # (Auto) 500 (0-900) /uL Eos # (Auto) 200 (0-450) /uL Baso # (Auto) 0 (0-100) /uL PT 11.1 (9.4-12.5) SECONDS INR 1.0 (0.9-1.3) APTT 37 H (25.1-36.5) SECONDS Sodium 138 (137-145) mmol/L Potassium 4.3 (3.4-5.1) mmol/L Chloride 106 (98-107) mmol/L Carbon Dioxide 24 (22-32) mmol/L BUN 20 H (7-17) mg/dL Creatinine 1.25 H (0.52-1.04) mg/dL Estimated GFR 45 L (>60) mL/min BUN/Creatinine Ratio 16.0 (6-22) Glucose 94 (70-99) mg/dL Calcium 9.3 (8.4-10.2) mg/dL Magnesium 2.1 (1.6-2.3) mg/dL Total Bilirubin 0.7 (0.2-1.3) mg/dL AST 47 H (14-36) IU/L ALT 31 (<35) IU/L Alkaline Phosphatase 59 (38-126) U/L Total Creatine Kinase 176 H (30-135) U/L Troponin I < 0.012 < 0.012 (0.01-0.034) ng/mL NT-Pro-B Natriuret Pep 86 (<450) pg/mL Total Protein 7.7 (6.3-8.2) g/dL Albumin 4.7 (3.5-5.0) g/dL Globulin 3.0 (1.7-4.1) g/dL Albumin/Globulin Ratio 1.6 (1.0-2.8) Lipase 190 (23-300) U/L Imaging Data Chest x-ray: Radiologist's Impression: [address] [address] XRay Report Signed Patient: Margo Conroy MR#: [id number] : 1945 Acct:[id number] Age/Sex: 78 / F Date of Service: 08/30/24 Loc: ED Accession Number: [id number] Procedure: XR chest 1V Ordering Provider: Marquez Schwartz D.O. PROCEDURE: XR CHEST 1V INDICATIONS: chest pain TECHNIQUE: One view of the chest was acquired. COMPARISON: [facility], CR, XR CHEST 2V, 12/06/2023, 13:20. [facility], CR, XR CHEST 2V, 05/17/2022, 13:47. FINDINGS: Surgical changes and devices: Surgical clips project over the right breast. Lungs and pleura: Ill-defined nodularity in the right upper lung zone. Mediastinum: Mediastinal contours appear normal. Heart size is normal. Bones and chest wall: No suspicious bony lesions. Overlying soft tissues appear unremarkable. IMPRESSION: Ill-defined nodularity in the right upper lung zone. Findings could represent early infection versus a true nodule. If there are no signs of infection, consider chest CT for confirmation. [address] [address] [address] Scan Report Signed Patient: Margo Conroy MR#: [id number] : 1945 Acct:[id number] Age/Sex: 78 / F Date of Service: 08/30/24 Loc: ED Accession Number: [id number] Procedure: CT chest wo con Ordering Provider: Marquez Schwartz D.O. PROCEDURE: CT CHEST WO CON INDICATIONS: per cxr recommendation TECHNIQUE: Noncontrast 5 mm thick sections acquired from the pulmonary apices to the posterior costophrenic angles. 1 mm lung window, 5 mm thick coronal and sagittal and 7 mm axial MIP reformats were then acquired. For radiation dose reduction, the following was used: automated exposure control, adjustment of mA and/or kV according to patient size. COMPARISON: [facility], CR, XR CHEST 1V, 08/30/2024, 20:57. FINDINGS: Image quality: Diagnostic. Lower Neck: No enlarged lymph nodes. Thyroid: No thyroid nodules which require sonographic follow up, per consensus guidelines. Axillae: No enlarged lymph nodes. Chest Wall: Calcifications within the right breast. Bones: Unremarkable. Lungs and Pleura: No pneumothorax or pleural effusions. Scattered endobronchial filling defects, largest measuring 1.2 cm in the right upper lobe (series 3, image 109) and 0.8 cm in the left upper lobe (series 3, image 101). Mild central bronchial thickening. Heart: Heart size is normal. No pericardial effusion. Thoracic Vessels: The aorta and pulmonary arteries demonstrate normal size. Mediastinum and Jenny: No enlarged lymph nodes. Esophagus: No wall thickening. Large hiatal hernia. Upper Abdomen: Visualized upper abdomen solid organs and bowel loops appear normal. IMPRESSION: Bronchitis with scattered regions of mucous plugging and endobronchial filling defects. Recommend follow up with chest CT in 3 months to ensure resolution, as some nodules measure greater than 1 cm. Large hiatal hernia Dictated by: Van Zuñiga M.D. on 08/30/2024 at 22:33 Approved by: Van Zuñiga M.D. on 08/30/2024 at 22:37 ECG Data Interpretation: NSR HR 70 QRS [address]-t wave change Unchanged from 07/04/20 MDM Narrative Medical decision making narrative: All lab work EKG chest x-ray CT scan vital signs nurse triage note medication list previous ER visits in all imaging reviewed. Patient given aspirin and GI cocktail here along with doxycycline and doxycycline on discharge home patient will follow up with PCP appointment next Tuesday. Patient asymptomatic with a heart score of 3. Differential diagnosis includes STEMI NSTEMI GERD unstable angina anxiety. Discharge Plan Departure Patient Disposition: Home Clinical Impression: Bronchitis, Hernia, hiatal Chest pain Qualifiers: Chest pain type: chest pain on breathing Qualified Code(s): R07.1 - Chest pain on breathing Instructions: DI for Chest Pain Activity Restrictions/Additional Instructions: Return with new or worsening symptoms. Take your medicines as directed. Follow up with PCP appointment next Tuesday Prescriptions: New doxycycline hyclate 100 mg capsule 100 mg PO BID Qty: 10 0RF No Action fluticasone propion-salmeterol [Advair Diskus] 250 MCG/50 MCG blister with device 1 puff INH BID Qty: 0 tolterodine [Detrol LA] 4 MG capsule,extended release 24hr 4 mg PO DAILY Qty: 0 fexofenadine 180 MG tablet 180 mg PO DAILY Qty: 0 aspirin 81 mg Tablet,Delayed Release (Dr/Ec) 81 mg PO DAILY Qty: 0 escitalopram oxalate [Lexapro] 20 MG tablet 30 mg PO DAILY Qty: 0 estradiol [Yuvafem] 10 mcg tablet 10 mcg vaginal 2XW Qty: 8 11RF fluticasone propion-salmeterol [Advair Diskus] 250-50 mcg/dose Blister With Device 1 inh INHALATION BID montelukast 10 mg Tablet 10 mg PO DAILY allopurinol 300 mg Tablet 300 mg PO DAILY Jakafi 10 mg Tablet 10 mg PO BID Qty: 60 5RF naratriptan 2.5 mg tablet 2.5 mg PO DAILY MDD 5 mg PRN (Reason: Migraine Headache) Patient Comments: TAKE 1 TABLET BY MOUTH ONCE DAILY NEEDED YOU MAY REPEAT WITH ONE TABLET ONCE IN 24 HOURS linaclotide 145 mcg capsule 145 mcg PO BEDTIME Patient Comments: TAKE 1 CAPSULE BY MOUTH ONCE DAILY lidocaine 5 % adhesive patch,medicated 1 patch topical Q12HR PRN (Reason: pain) Qty: 30 0RF Rx Instructions: leave on most painful area for up to 12 hrs hydrocodone-acetaminophen 5-325 mg tablet 1 tab PO Q6H PRN (Reason: pain) Qty: 10 0RF gabapentin 100 mg capsule 100 mg PO BEDTIME PRN (Reason: sciatica/pain) Qty: 20 0RF dexlansoprazole [Dexilant] 60 mg Capsule,Biphase Delayed Releas 60 mg PO DAILY Referrals: Franklyn Mendoza MD [Primary Care Provider] - Stand Alone Forms: Patient Portal/API/Survey
[2024-08-30 21:02] LABS: Add Manual Diff / Slide Review NO; Basophils Absolute Auto 0 /uL (0-100); Basophils Percent Auto 0.4 % (0-2); Eosinophils Absolute Auto 200 /uL (0-450); Eosinophils Percent Auto 3.2 % (2-4); Hematocrit 33.4 % (36-46); Hemoglobin 11.2 g/dL (12.0-16.0); Lymphocytes Absolute Auto 1500 /uL (1100-4500); Lymphocytes Percent Auto 28.1 % (25-40); Mean Corpuscular HGB Conc 33.7 % (30-36); Mean Corpuscular Hemoglobin 30.8 PG (26-34); Mean Corpuscular Volume 91.4 fL (80-100); Monocytes Absolute Auto 500 /uL (0-900); Monocytes Percent Auto 9.7 % (3-14); Neutrophils Absolute Auto 3100 /uL (1500-7000); Neutrophils Percent Auto 58.6 % (50-75); Platelet Count 301 X10^3/uL (150-400); Red Blood Cell Count 3.65 X10^6/uL (4.0-5.2); Red Cell Distribution Width 15.6 % (11.6-14.8); White Blood Cell Count 5.3 X10^3/uL (4.5-11.0)
[2024-08-30 21:11] LABS: Prothrombin Time 11.1 SECONDS (9.4-12.5)
[2024-08-30 21:13] LABS: PTT Partial Thromboplastin Tim 37 SECONDS (25.1-36.5)
[2024-08-30 21:16] LABS: Alanine Aminotransferase 31 IU/L (<35); Albumin 4.7 g/dL (3.5-5.0); Albumin Globulin Ratio 1.6 (1.0-2.8); Bilirubin Total 0.7 mg/dL (0.2-1.3); Blood Urea Nitrogen 20 mg/dL (7-17); Calcium 9.3 mg/dL (8.4-10.2); Carbon Dioxide 24 mmol/L (22-32); Chloride 106 mmol/L (98-107); Creatine Kinase 176 U/L (30-135); Estimated Glomerular Filt Rate 45 mL/min (>60); Glucose 94 mg/dL (70-99); Lipase 190 U/L (23-300); Magnesium 2.1 mg/dL (1.6-2.3); Sodium 138 mmol/L (137-145); Total Protein 7.7 g/dL (6.3-8.2)
[2024-08-30 21:17] LABS: HEMOLYSIS 76 (0-50); Potassium 4.3 mmol/L (3.4-5.1)
[2024-08-30 21:18] LABS: Alkaline Phosphatase 59 U/L (38-126); Aspartate Aminotransferase 47 IU/L (14-36)
[2024-08-30 21:28] LABS: NT-proBNP (BNP-Adult 18+) 86 pg/mL (<450); Troponin I < 0.012 ng/mL (0.01-0.034)
--- NOTE | 2024-08-30 21:53 | DI.CT.S_ITS ---
PROCEDURE: CT CHEST WO CON INDICATIONS: per cxr recommendation TECHNIQUE: Noncontrast 5 mm thick sections acquired from the pulmonary apices to the posterior costophrenic angles. 1 mm lung window, 5 mm thick coronal and sagittal and 7 mm axial MIP reformats were then acquired. For radiation dose reduction, the following was used: automated exposure control, adjustment of mA and/or kV according to patient size. COMPARISON: [facility], CR, XR CHEST 1V, 08/30/2024, 20:57. FINDINGS: Image quality: Diagnostic. Lower Neck: No enlarged lymph nodes. Thyroid: No thyroid nodules which require sonographic follow up, per consensus guidelines. Axillae: No enlarged lymph nodes. Chest Wall: Calcifications within the right breast. Bones: Unremarkable. Lungs and Pleura: No pneumothorax or pleural effusions. Scattered endobronchial filling defects, largest measuring 1.2 cm in the right upper lobe (series 3, image 109) and 0.8 cm in the left upper lobe (series 3, image 101). Mild central bronchial thickening. Heart: Heart size is normal. No pericardial effusion. Thoracic Vessels: The aorta and pulmonary arteries demonstrate normal size. Mediastinum and Jenny: No enlarged lymph nodes. Esophagus: No wall thickening. Large hiatal hernia. Upper Abdomen: Visualized upper abdomen solid organs and bowel loops appear normal. IMPRESSION: Bronchitis with scattered regions of mucous plugging and endobronchial filling defects. Recommend follow up with chest CT in 3 months to ensure resolution, as some nodules measure greater than 1 cm. Large hiatal hernia Dictated by: Van Zuñiga M.D. on 08/30/2024 at 22:33 Approved by: Van Zuñiga M.D. on 08/30/2024 at 22:37
--- NOTE | 2024-08-30 23:47 | EKG_ITS ---
[facility] [address] [place] [address] Test Date: 2024-08-30 Pat Name: Margo Conroy Department: [facility] Room: Gender: Female [employer] Raiser: AURELIO : 1945 Requested By: Order Number: [id number] Reading MD: Marquez Perez MD Measurements Intervals [place] Rate: 65 P: 60 MI: 146 QRS: 24 QRSD: 78 T: 17 QT: 438 QTc: 455 Interpretive Statements Sinus rhythm with occasional premature ventricular complexes ST & T wave abnormality, consider anterior ischemia NO SIGNIFICANT CHANGE FROM PRIOR TRACING Electronically Signed On 08-31-2024 6:40:39 PDT by Marquez Perez MD
[2024-08-30] MEDS: LIDOCAINE VISCOUS 2% 15 ML SOLUTION PO (23:48)
[2024-08-30] MEDS: MAGNESIUM HYDROXIDE 30 ML UDC PO (23:48)
[2024-08-31] VITALS: BP 148/67; PULSE 63; RESP 16; O2SAT 97
[2024-08-31 00:30] VITALS: BP 150/78; PULSE 62; RESP 14; O2SAT 97
[2024-08-31 00:33] LABS: Troponin I < 0.012 ng/mL (0.01-0.034)
[2024-08-31 01:00] VITALS: BP 148/77; PULSE 63; RESP 17; O2SAT 95
[2024-08-31] MEDS: DOXYCYCLINE HYCLATE 100 MG TABLET PO (01:09)
== END 2024-08-31 01:20 | disposition home or self-care (01) ==
PROVIDERS: Emergency Provider Family Medicine; PCP Family Medicine
DX: R07.1 Chest pain on breathing (principal); J40 Bronchitis, not specified as acute or chronic; K44.9 Diaphragmatic hernia without obstruction or gangrene
CPT/HCPCS: 36415; 71045; 71250; 80053; 82550; 83690; 83735; 83880; 84484; 85025; 85610; 85730; 93005; 93010; 99284

== ENCOUNTER → 2024-12-04 13:43 | Outpatient (CLI) | payer MEDICARE, OTHER, SELFPAY ==
--- NOTE | 2024-12-04 13:58 | DI.CT.S_ITS ---
PROCEDURE: CT CHEST WO CON INDICATIONS: CHEST PAIN TECHNIQUE: Noncontrast 5 mm thick sections acquired from the pulmonary apices to the posterior costophrenic angles. 1 mm lung window, 5 mm thick coronal and sagittal and 7 mm axial MIP reformats were then acquired. For radiation dose reduction, the following was used: automated exposure control, adjustment of mA and/or kV according to patient size. COMPARISON: [facility], CT, CT CHEST WO CON, 08/30/2024, 22:10. FINDINGS: Image quality: Diagnostic. Lower Neck: No enlarged lymph nodes. Thyroid: No thyroid nodules which require sonographic follow up, per consensus guidelines. Axillae: No enlarged lymph nodes. Chest Wall: Surgical clips are seen in the right breast. Bones: Unremarkable. Lungs and Pleura: No pneumothorax or pleural effusions. Central bronchial wall thickening again seen. Numerous bilateral pulmonary nodules. The largest in the right upper lobe measures approximately 10 mm (3/98), compared to [address] from 08/30/2024. The largest in the left upper lobe measures 8 mm (3/95), unchanged. Additional pulmonary nodules do not appear significantly changed. Heart: Heart size is normal. No pericardial effusion. Thoracic Vessels: The aorta and pulmonary arteries demonstrate normal size. Mediastinum and Jenny: No enlarged lymph nodes. Esophagus: No wall thickening. Moderate hiatal hernia. Upper Abdomen: Visualized upper abdomen solid organs and bowel loops appear normal. IMPRESSION: Overall stable appearance of multiple bilateral pulmonary nodules, with mildly decreased size of the largest nodule in the right upper lobe measuring up to [address] in 12-18 months. Approved by: Van Alba M.D. on 12/04/2024 at 21:45
== END ==
LOC: CT 13:44
PROVIDERS: PCP Family Medicine; Referring Provider Family Medicine; Visit Provider Family Medicine
DX: R07.9 Chest pain, unspecified (principal); R91.8 Other nonspecific abnormal finding of lung field; K44.9 Diaphragmatic hernia without obstruction or gangrene
CPT/HCPCS: 71250

== ENCOUNTER → 2025-02-27 15:47 | Outpatient (CLI) | payer MEDICARE, OTHER, SELFPAY ==
--- NOTE | 2025-02-27 15:56 | DI.US.S_ITS ---
PROCEDURE: US THYROID INDICATIONS: Ly,Mani A TECHNIQUE: Real-time scanning was performed of the thyroid gland, with image documentation. COMPARISON: [facility], US, US THYROID, 08/07/2018, 11:07. [facility], US, US THYROID, 05/17/2022, 13:28. [facility], US, US THYROID, 11/23/2022, 13:40. [facility], US, US THYROID, 01/03/2024, 16:07. FINDINGS: Thyroid: Right lobe measures 4.4 x 1.7 x 1.3 cm (4.2 x 1.8 x 1.8 cm). Left lobe measures 3.6 x 1.0 x 1.4 cm (3.5 x 1.7 x 1.4 cm). Isthmus is 0.2 cm (1.8 mm) thick. Echotexture is homogeneous. Nodule number: 1 Location: Right inferior posterior Size: 1.2 x 0.9 x 1.1 cm. (1.2 x 1.1 x 1.1 cm), and 1.2 x 1.1 x 1.0 cm on ultrasound 08/07/2018. Composition: Solid Echogenicity: Isoechoic Shape: wider than tall. Margins: Smooth Echogenic foci: Punctate echogenic foci Total points: 6 ACR TI-RADS category: 4 Additional adjacent subcentimeter nodule does not appear significantly changed. IMPRESSION: Stable appearance thyroid nodules dating back to 2019. Given at least 5 years of stability, no additional imaging follow-up is required. ACR TI-RADS definitions and recommendations: TI-RADS 1 (benign): 0 points. FNA not needed. TI-RADS 2 (not suspicious): 2 points. FNA not needed. TI-RADS 3: 3 points. * FNA if 2.5 cm or larger, follow up if 1.5 cm or larger (at 1, 3, and 5 years). TI-RADS 4: 4-6 points. * FNA if 1.5 cm or larger, follow up if 1 cm or larger (at 1, 2, 3, and 5 years). TI-RADS 5: 7 points or more. * FNA if 1 cm or larger, follow up if 0.5 cm or larger (every year for 5 years). Dictated by: Yun NAJERA Interpreted: Van Alba MD on 02/28/2025 at 8:33 Transcribed by: MARITZA on 02/28/2025 at 8:41 Approved by: Van Alba M.D. on 02/28/2025 at 12:39
== END ==
LOC: US 15:51
PROVIDERS: PCP Family Medicine; Referring Provider Internal Medicine Endocrinology, Diabetes & Metabolism; Visit Provider Internal Medicine Endocrinology, Diabetes & Metabolism
DX: E04.2 Nontoxic multinodular goiter (principal)
CPT/HCPCS: 76536

== ENCOUNTER → 2025-03-26 14:25 | Outpatient (CLI) | payer MEDICARE, OTHER, SELFPAY ==
[2025-03-26 17:21] LABS: Thyroid Stimulating Hormone 1.57 uIU/mL (0.47-4.68)
== END ==
PROVIDERS: PCP Family Medicine; Referring Provider Registered Nurse; Visit Provider Internal Medicine Endocrinology, Diabetes & Metabolism
DX: E04.2 Nontoxic multinodular goiter (principal); E10.65 Type 1 diabetes mellitus with hyperglycemia; F02.80 Dementia in other diseases classified elsewhere, unspecified severity, without behavioral disturbance, psychotic disturbance, mood disturbance, and anxiety
CPT/HCPCS: 36415; 84439; 84443

== ENCOUNTER → 2025-04-11 14:45 | Outpatient (CLI) | payer MEDICARE, OTHER, SELFPAY ==
--- NOTE | 2025-04-11 14:53 | DI.RAD.S_ITS ---
PROCEDURE: XR LUMBAR SPINE 2-3V INDICATIONS: BILAT HIP AND LOWER BACK PAIN TECHNIQUE: Three views of the lumbar spine were acquired. COMPARISON: None. FINDINGS: Bones: Five cqi-zog-wohgjdd vertebrae are present. Mizk-nc-hpnvdjag dextroscoliosis with the apex at the L2 level. Asymmetric disc height loss and endplate spurring at L2-3 on the left. AP alignment of the lumbar spine is normal. Multilevel disc height loss, most severe at L2-3. Mild anterior endplate osteophytes. No acute vertebral body compression fractures. No suspicious bony lesions. Soft tissues: Surgical clips in the right upper quadrant of the abdomen. Overlying bowel gas pattern is normal. No suspicious soft tissue calcifications. IMPRESSION: Chronic appearing disc and endplate degeneration. Dictated by: Hayde Saez M.D. on 04/11/2025 at 16:48 Approved by: Hayde Saez M.D. on 04/11/2025 at 16:50
--- NOTE | 2025-04-11 14:53 | DI.RAD.S_ITS ---
PROCEDURE: XR HIP W PEL IF DONE BILAT 2V INDICATIONS: BILAT HIP AND LOWER BACK PAIN TECHNIQUE: AP pelvis with lateral view(s) of the bilateral hip(s). COMPARISON: [facility], , XR HIP W PEL IF DONE LT 2V, 12/06/2023, 13:20. FINDINGS: Bones: No fractures or dislocations. Mild, bilateral and symmetric hip joint degeneration. Pelvic ring appears intact. No suspicious bony lesions. Soft tissues: The visualized bowel gas pattern is normal. No suspicious soft tissue calcifications. IMPRESSION: Mild and symmetric bilateral hip joint degeneration. Dictated by: Hayde Saez M.D. on 04/11/2025 at 16:50 Approved by: Hayde Saez M.D. on 04/11/2025 at 16:51
== END ==
PROVIDERS: PCP Family Medicine; Referring Provider Family Medicine; Visit Provider Family Medicine
DX: M47.816 Spondylosis without myelopathy or radiculopathy, lumbar region (principal); M16.0 Bilateral primary osteoarthritis of hip; M41.9 Scoliosis, unspecified; M54.50 Low back pain, unspecified; M25.559 Pain in unspecified hip
CPT/HCPCS: 72100; 73521